=== PATIENT | female | born 1960 | race Caucasian/White ===

== ENCOUNTER 2019-09-09 11:11 | Inpatient (IN) | payer OTHER ==
[~2019-09-09 11:11] MED LIST: Rocuronium Bromide 10 MG/ML (10ML VIAL) ONE; Succinylcholine Chloride 20 MG/ML 10 ml SYRINGE FS ONE
[2019-09-09] MEDS ORDERED: Diltiazem 125 MG/25 ML ONE (11:33)
[2019-09-09 11:55] LABS: #Basophils 0.1 thou/uL (0.0-0.2); #Eosinphils 0.1 thou/uL (0.0-0.7); #Lymphocytes 3.3 thou/uL (1.20-3.40); #Monocytes 0.9 thou/uL (0.11-0.59); #Neutrophils 6.4 thou/uL (1.40-6.50); %Basophils 0.6 % (0.0-1.0); %Eosinophils 1.2 % (0.0-10.0); %Lymphocytes 30.5 % (21.0-51.0); %Monocytes 8.4 % (0.0-10.0); %Neutrophils 59.3 % (42.0-75.0); Hemoglobin 14.6 g/dL (12.0-16.0); Mean Corpuscular HGB CONC 33.6 g/dL (32.0-36.0); Mean Corpuscular Hemoglobin 32.6 pg (27.0-31.0); Mean Corpuscular Volume 96.8 fL (78.0-98.0); Mean Platelet Volume 7.5 fL (7.4-10.4); Platelet Count 283 thou/uL (130-400); RBC Distribution Width 13.6 % (11.5-14.5); Red Blood Cell (RBC) Count 4.49 mill/uL (4.20-5.40); White Blood Cell (WBC) Count 10.8 thou/uL (4.8-10.8)
[2019-09-09 12:11] LABS: Acetaminophen Less than 6.0 mcg/mL (10.0-30.0); Alcohol Less than 10 mg/dL (Less than 10); Salicylate Less than 8.0 mg/dL (15.0-30.0)
[2019-09-09 12:17] LABS: ALT (SGPT) 13 U/L (8-55); AST (SGOT) 17 U/L (5-34); Alkaline Phosphatase 109 U/L (40-110); Anion Gap 12 mmol/L (10-20); BUN (Urea Nitrogen) 13 mg/dL (9.8-20.1); Bilirubin, Total 0.5 mg/dL (0.2-1.2); Calc. Creatinine Clearance 0 mL/min (70-130); Calcium 8.8 mg/dL (7.8-10.44); Carbon Dioxide 21 mmol/L (22-29); Chloride 107 mmol/L (98-107); Estimated GFR-MDRD Greater than 90; Globulin 2.9 g/dL (2.4-3.5); Glucose 113 mg/dL (70-105); Potassium 3.8 mmol/L (3.5-5.1); Protein, Total 6.9 g/dL (6.0-8.3); Sodium 136 mmol/L (136-145)
--- NOTE | 2019-09-09 12:22 | CT ---
CT BRAIN WITHOUT CONTRAST: Date: 09/09/2019 HISTORY: Altered mental status. Schizophrenia. Bipolar. COMPARISON: None. FINDINGS: No evidence of acute infarct, hemorrhage, midline shift, or abnormal extra-axial fluid collections ar e seen. The ventricular size is normal and the basilar cisterns are patent. There is suggestion of an old lacunar infarction in the right side of the heidy. The bony calvarium is intact. The visualized p aranasal sinuses and mastoid air cells are well aerated. IMPRESSION: No CT evidence of acute intracranial process. POS: [facility]
--- NOTE | 2019-09-09 13:00 | RAD ---
PORTABLE CHEST 1 VIEW: DATE: 09/09/2019. TIME: 12:16 PM. HISTORY: Altered mental status. FINDINGS/IMPRESSION: The heart size is borderline. The aorta is tortuous with mild prominence of the pulmonary vascularit y. No lobar consolidation, pneumothoraces, or large effusions are seen. There are postop changes an d metallic hardware in the left proximal humerus. POS: [facility]
[2019-09-09] MEDS ORDERED: Lorazepam 2 MG/ML VIAL ONE (13:12)
[2019-09-09] MEDS ORDERED: Ketamine 50 MG/ML (10ML VIAL) ONE (13:27)
[2019-09-09] MEDS ORDERED: Rocuronium Bromide 10 MG/ML (10ML VIAL) ONE (13:27)
[2019-09-09 14:32] LABS: Actual Bicarbonate (HCO3a) 17.7 mEq/L (22-28); Analyzer IN Cardio ER; Base Excess (BEa) -7.9 mEq/L (-2.0 to +3.0); CO2 Tension 36.8 mmHg (35.0-45.0); Calcium, Ionized (arterial) 1.18 mmol/L (1.12-1.30); Carboxyhemoglobin (COHb) 5.6 gm% (0.0-3.0); Hemoglobin (Hb) 14.3 g/dL (12.0-16.0); O2 Tension (PaO2), arterial 135.7 mmHg (80.0-100.0); Potassium - ABG Lab 3.82 mmol/L (3.70-5.30)
[2019-09-09 14:38] LABS: Puncture Site RRA
[2019-09-09] MEDS ORDERED: Enoxaparin Sodium 80 MG/0.8 ML SYRINGE ONE (15:01)
[2019-09-09] MEDS ORDERED: Magnesium 2 GM/50 ML BAG (IN WATER) ONE (15:01)
[2019-09-09] MEDS ORDERED: methylPREDNISolone Sod Succ/PF 125 MG/2 ML VIAL ONE (15:01)
[2019-09-09] MEDS ORDERED: Bacteriostatic Water 30 ML VIAL FS PRN (15:07)
[2019-09-09] MEDS ORDERED: Bisacodyl 5 MG TAB PO PRN (15:47)
[2019-09-09] MEDS ORDERED: Ondansetron PF 4 MG/2 ML Vial IVP PRN (15:47)
[2019-09-09] MEDS ORDERED: Dextrose 5% in Water 1,000 ML IV PRN (15:49)
[2019-09-09] MEDS ORDERED: Dextrose 50% Abboject 50 ML SYRINGE SLOW IVP PRN (15:49)
[2019-09-09] MEDS ORDERED: HumaLOG 300 UNITS/3 ML VIAL SC PRN (15:49)
[2019-09-09 15:59] LABS: Troponin I 0.028 ng/mL (< 0.028)
[2019-09-09] MEDS ORDERED: methylPREDNISolone Sod Succ 40 MG VIAL IVP SCH (18:00)
--- NOTE | 2019-09-09 18:00 | HP ---
PRIMARY CARE PROVIDER: Anna Reyes. CHIEF COMPLAINT: Altered mental status. HISTORY OF PRESENT ILLNESS: Ms. Hall is a pleasant 58-year-old lady who was seen at [facility] on September 09, 2019. She was hospitalized at this facility from April 27, 2019 to May 01, 2019, for chest pain, proximal humeral fracture and olecranon fracture on the left side. EMS was called by the patient's for altered mental status today. He could not provide any history and did not provide the patient's name. Initially, it was unclear who she was. She has subsequently regained consciousness and was able to tell her name. She was initially worked up as a possible stroke. While in the emergency room, she started having respiratory difficulty and became hypoxic. She was started on BiPAP. She was also found to have atrial flutter with rapid ventricular response. She was started on Cardizem drip as well. The patient currently denies any chest pain. She reports feeling short of breath with exertion. She reports feeling hungry and thirsty. She denies any abdominal pain. She denies any recent travel. The patient also reports weight loss of several pounds over the last few months, attributes it to decreased appetite. REVIEW OF SYSTEMS: All systems were reviewed and found to be negative except for the pertinent positives mentioned above. PAST MEDICAL HISTORY: Dyslipidemia, hypertension, diabetes mellitus type 2, coronary artery disease. PAST SURGICAL HISTORY: Multiple breast surgeries, sinus surgery, cholecystectomy, appendectomy, hysterectomy, stent placement in lower extremity and open reduction and internal fixation of left olecranon fracture and left proximal humeral fracture. PSYCHIATRIC HISTORY: Bipolar disorder and schizophrenia. She also has a history of suicide attempts. SOCIAL HISTORY: She smokes one pack of cigarettes a day. She denies alcohol use or recreational drug use. ALLERGIES: GEODON, TORADOL, AND TRAMADOL. CURRENT MEDICATIONS: These need to be clarified, but appeared to include 1. Tylenol No.3. 2. ProAir. 3. Amitriptyline. 4. Aspirin. 5. Atorvastatin. 6. Clonazepam. 7. Benadryl. 8. Trulicity. 9. NovoLog. 10. Isosorbide. 11. Protonix. 12. Brilinta. 13. Topamax. 14. Trazodone. FAMILY HISTORY: The patient reports heart disease in her mother. PHYSICAL EXAMINATION: GENERAL: On examination, Ms. Hall is awake and alert, not in acute distress, fidgety. VITAL SIGNS: Blood pressure is 103/74, pulse 109, respiratory rate 32. She is afebrile. Her oximeter readings are reportedly falsely low. EYES: No scleral icterus, no conjunctival pallor. ENT: Moist mucosal membranes. No oropharyngeal erythema or exudates. NECK: Supple, nontender, trachea is midline. RESPIRATORY: Accessory muscles of breathing are not active. Chest wall movements are symmetric bilaterally. Lung examination reveals diffuse expiratory wheeze. CARDIOVASCULAR: S1 and S2 are heard, regular and tachycardic. Peripheral pulses palpable. ABDOMEN: Soft, nontender, bowel sounds are heard. NEUROLOGIC: Cranial nerves 2 through 12 are intact, deep tendon reflexes 2+. MUSCULOSKELETAL: Power is 5/5 in all 4 extremities. SKIN: No rashes. LYMPHATIC: No cervical lymphadenopathy. PSYCHIATRIC: The patient is fidgety, appears anxious, oriented to person and place, not to time. LABORATORY DATA: Ms. Hall's labs and investigations were reviewed. I reviewed her electrocardiogram, which shows atrial flutter with variable AV block, no ST changes to suggest an acute coronary syndrome. I also reviewed her chest x-ray, which does not show any pulmonary infiltrates. Noncontrast CT scan of the brain did not show any acute intracranial process. She has an unremarkable CBC, unremarkable comprehensive metabolic profile, normal troponin-I x2, mildly elevated BNP of 336, normal salicylate level, normal acetaminophen level, normal plasma alcohol level, and arterial blood gases showing pH 7.30, pCO2 of 36.8, and PO2 of 135.7. ASSESSMENT AND PLAN: Ms. Hall is a pleasant 58-year-old lady who was seen at [facility] on September 09, 2019. Her problem list includes: 1. Acute metabolic encephalopathy: She initially presented with acute metabolic encephalopathy. Etiology unclear, although it could have been secondary to hypoxia. She will be admitted to the hospital. She has improved since coming to the emergency room. Further management depending on how she does. 2. Chronic obstructive pulmonary disease exacerbation: The patient is presenting with chronic obstructive pulmonary disease exacerbation. She has been started on steroids and DuoNeb. She has also received levofloxacin in the emergency room, which I will continue for now. She will be admitted to the [facility] for further management. 3. Atrial flutter: She has been started on a Cardizem drip, which I will continue. I will also consult Cardiology Service for opinion and help with management. 4. Hypertension: We will resume her home medications once clarified, monitor vital signs and titrate antihypertensives as needed. 5. Diabetes mellitus type 2: Start Accu-Chek and insulin sliding scale, clarify home medications and resume home medications. 6. Dyslipidemia: Resume home medications once clarified. 7. COVID-19, to be ruled out. Many thanks for allowing me to participate in your patient's care. Please feel free to contact me with any questions or concerns. LEVEL OF RISK: High. LEVEL OF COMPLEXITY: High. Job ID: [id number]
[2019-09-09 20:38] LABS: Troponin I 0.026 ng/mL (< 0.028)
[2019-09-09] MEDS: methylPREDNISolone Sod Succ 40 MG VIAL IVP SCH (21:16)
[2019-09-09] MEDS: Sodium Chloride 0.9% 1,000 ML IV SCH (21:16)
[2019-09-09] MEDS: Nicotine 21 MG PATCH TD SCH (21:16)
--- NOTE | 2019-09-09 21:35 | CON ---
DATE OF CONSULTATION: 09/09/2019 CONSULTING PHYSICIAN: Noman Mcelroy MD from the Hospitalist Group. REASON FOR CONSULTATION: Rule out COVID pneumonia, hypoxic respiratory failure. HISTORY OF PRESENT ILLNESS: The patient is a 58-year-old female, who presents to the ER with a history of increasing shortness of breath, chest congestion, and altered mental status. I am told that she is a schizophrenic, who has been off her medications for quite some time. She denies any exposure to people with COVID, but she has been put on rule-out status by the emergency room physician. She was noted in the ER to be hypoxic, for that seems to be due to monitoring air with a pulse oximeter, as her PO2 is actually pretty good on the ABG. She states that she does smoke about a pack per day and thinks that she probably has COPD. PAST MEDICAL HISTORY: 1. Hypertension. 2. Hyperlipidemia. 3. Schizophrenia. 4. Bipolar disorder. 5. Type 2 diabetes mellitus. 6. Coronary artery disease. 7. Multiple suicide attempts. PAST SURGICAL HISTORY: 1. Breast surgical. 2. Sinus surgery. 3. Cholecystectomy. 4. Appendectomy. 5. Hysterectomy. 6. Right iliac stenting. SOCIAL HISTORY: Smokes less than a pack per day. Does not consume alcohol or use illicit drugs. ALLERGIES: CHOCOLATE, CORN SYRUP, GEODON, TORADOL, AND TRAMADOL. MEDICATIONS: Prior to admission not currently available, but the last time she was in the hospital, she was supposed to be on; 1. Amitriptyline. 2. Aspirin. 3. Atorvastatin. 4. Clonazepam. 5. Trulicity. 6. NovoLog insulin. 7. Imdur. 8. Protonix. 9. Brilinta. 10. Topamax. 11. Trazodone. REVIEW OF SYSTEMS: Difficult to obtain because the patient is very manic at this time. PHYSICAL EXAMINATION: VITAL SIGNS: Temperature 97, pulse 140, respirations generally in the 20s, O2 saturation on her ABG is 98%. GENERAL: She is a disheveled appearing female, who is sitting up in chair. She is in no distress. HEENT: Pupils reactive. Sclerae anicteric. Oropharynx clear. CHEST: Faint wheezing bilaterally. CARDIOVASCULAR: S1 and S2. Irregularly irregular without murmur. ABDOMEN: Soft and nontender. EXTREMITIES: No clubbing, cyanosis, or edema. LABORATORY DATA: ABG; pH of 7.30, pCO2 of 36, and pO2 of 135, that was on 60% oxygen. White blood cell count 10.8, hematocrit 43, and platelet count 283. Sodium 136, potassium 3.8, chloride 107, CO2 of 21, BUN 13, creatinine 0.6, and glucose 113. BNP is 336. Chest x-ray shows some vascular congestion. Tox screen was negative. ASSESSMENT: 1. Atrial fibrillation with rapid ventricular response. 2. Acute hypoxic respiratory failure. 3. Schizophrenia. 4. Probable underlying chronic obstructive pulmonary disease. PLAN: 1. The patient currently does not need BiPAP, she seems more than adequate on nasal cannula. 2. She needs to have her rate control with her atrial fibrillation. 3. She will remain in respiratory isolation until her COVID test is back. 4. We would withhold any type of antibiotic therapy for the current time. 5. Misty for rate control. Job ID: [id number]
[2019-09-09] MEDS: Diltiazem 125 MG in Sodium Chloride 0.9% 100 ML IVPB SCH (23:29)
[2019-09-10] MEDS ORDERED: Lorazepam 2 MG/ML VIAL SLOW IVP SCH (03:15)
[2019-09-10] MEDS: Enoxaparin Sodium 60 MG/0.6 ML SYRINGE SC SCH ×2 (03:20→14:47)
[2019-09-10] MEDS: methylPREDNISolone Sod Succ 40 MG VIAL IVP SCH ×4 (03:21→20:35)
[2019-09-10 03:53] LABS: #Lymphocytes 0.8 thou/uL (1.20-3.40); #Monocytes 0.2 thou/uL (0.11-0.59); #Neutrophils 7.1 thou/uL (1.40-6.50); %Basophils 0.3 % (0.0-1.0); %Eosinophils 0.1 % (0.0-10.0); %Lymphocytes 10.3 % (21.0-51.0); %Monocytes 2.1 % (0.0-10.0); %Neutrophils 87.2 % (42.0-75.0); Hemoglobin 14.1 g/dL (12.0-16.0); Mean Corpuscular HGB CONC 32.7 g/dL (32.0-36.0); Mean Corpuscular Hemoglobin 31.7 pg (27.0-31.0); Mean Corpuscular Volume 96.8 fL (78.0-98.0); Mean Platelet Volume 8.5 fL (7.4-10.4); Platelet Count 288 thou/uL (130-400); Red Blood Cell (RBC) Count 4.46 mill/uL (4.20-5.40); White Blood Cell (WBC) Count 8.1 thou/uL (4.8-10.8)
[2019-09-10 04:12] LABS: Anion Gap 12 mmol/L (10-20); BUN (Urea Nitrogen) 9 mg/dL (9.8-20.1); Calc. Creatinine Clearance 98 mL/min (70-130); Calcium 8.4 mg/dL (7.8-10.44); Carbon Dioxide 18 mmol/L (22-29); Chloride 109 mmol/L (98-107); Estimated GFR-MDRD Greater than 90; Glucose 202 mg/dL (70-105); Potassium 4.1 mmol/L (3.5-5.1); Sodium 135 mmol/L (136-145)
[2019-09-10] MEDS: Diltiazem 125 MG in Sodium Chloride 0.9% 100 ML IVPB SCH ×3 (05:21→22:27)
[2019-09-10] MEDS: Insulin Regular 300 UNITS/3 ML VIAL SC PRN ×4 (06:16→20:45)
--- NOTE | 2019-09-10 08:40 | PRG ---
DATE OF SERVICE: 09/10/2019 SUBJECTIVE: The patient is confused. Really does not verbalize that much, but does not appear to be in any distress. OBJECTIVE: VITAL SIGNS: Temperature 96.4, pulse 94, blood pressure 181/101. HEENT: Unremarkable. NECK: No adenopathy or JVD. LUNGS: Faint wheezing. CARDIAC: S1, S2. Regular. ABDOMEN: Soft. EXTREMITIES: No edema. LABORATORY DATA: Sodium 135, potassium 4.1, chloride 109, CO2 of 18, BUN 9, creatinine 0.6, glucose 205. White blood cell count 8.1, hematocrit 43.1, and platelet count 288. ASSESSMENT: 1. Chronic obstructive pulmonary disease with exacerbation. 2. Rule out COVID-19 infection. 3. Schizophrenia, off medication. 4. Atrial fibrillation with rapid ventricular response. PLAN: 1. She is on Cardizem drip with good rate control of her atrial fibrillation. 2. Await result of COVID-19 test. If that comes back negative, then she can be moved to Telemetry. 3. We would consider Cardiology input for the atrial fibrillation. 4. Continue nebulization treatments, low-dose steroids. Job ID: [id number]
[2019-09-10] MEDS: Albuterol 200 PUFF (6.7GM INHALER) INH SCH ×3 (09:18→18:09)
[2019-09-10] MEDS: HYDROcodone/Acetaminophen 5/325 mg Tablet PO PRN ×3 (11:51→22:26)
[2019-09-10] MEDS: Sodium Chloride 0.9% 1,000 ML IV SCH ×2 (11:53→13:24)
--- NOTE | 2019-09-10 13:23 | CON ---
DATE OF CONSULTATION: 09/10/2019 REASON FOR CONSULTATION: Atrial flutter/atrial fibrillation. PRIMARY CANDY PULLER: Dr. Damian Morton. HISTORY OF PRESENT ILLNESS: Ms. Hall is a very pleasant 58-year-old white female, who comes to the hospital for altered mentation. She was altered today. called EMS. She was brought in. Subsequently, she woke back up, was able to give some history. She has been short of breath and EKG showed atrial fibrillation/atrial flutter, so Cardiology is being consulted for this. She does not have a history of atrial fibrillation or atrial flutter. She has been seen for coronary artery disease, which she has non-revascularizable disease in the left circumflex, and she had PVD with iliac disease that was stented successfully. PAST MEDICAL HISTORY: 1. Hyperlipidemia. 2. Hypertension. 3. Type 2 diabetes. 4. Coronary artery disease. 5. Bipolar disorder. 6. Schizophrenia. 7. Multiple suicide attempts in the past. SURGICAL HISTORY: 1. Breast surgeries. 2. Sinus surgery. 3. Cholecystectomy. 4. Appendectomy. 5. Hysterectomy. 6. Right iliac stenting. SOCIAL HISTORY: Smokes a pack a day. No alcohol or drug use. ALLERGIES: 1. CHOCOLATE FLAVOR. 2. CORN. 3. GEODON. 4. TORADOL. 5. TRAMADOL. OUTPATIENT MEDICATIONS: 1. Tylenol with Codeine. 2. ProAir. 3. Amitriptyline. 4. Aspirin 81 a day. 5. Atorvastatin. 6. Clonazepam. 7. Benadryl. 8. Trulicity. 9. NovoLog 70/30. 10. Imdur 30 a day. 11. Protonix. 12. Brilinta 90 b.i.d. 13. Topamax. 14. Trazodone. REVIEW OF SYSTEMS: A 12-point review of systems was done and was all negative unless stated in the history of present illness. PHYSICAL EXAMINATION: VITAL SIGNS: Temperature 98.8, pulse 96, respiratory rate 18, saturating 100% on room air, and blood pressure 156/80. GENERAL: Awake and alert. HEENT: Normocephalic and atraumatic. NECK: Supple. LUNGS: Clear. CARDIOVASCULAR: S1 and S2. Irregularly irregular, heart rate 80s to 110s. ABDOMEN: Soft. EXTREMITIES: No edema. SKIN: Warm and dry. LABORATORY DATA: Laboratory work was reviewed. White count of 10, hemoglobin of 14, hematocrit 43, and platelet count of 283. ABG was reviewed. Chemistries were reviewed. Sodium was 135, potassium was 4.1, chloride of 109, carbon dioxide of 18, anion gap of 12, BUN of 9, creatinine 0.65, GFR greater than 90, glucose of 211, calcium of 8.4. Troponin was negative x3. BNP was 336. Toxicology was all negative. CT of the brain was unremarkable. EKG was reviewed. ASSESSMENT: 1. Atrial flutter/atrial fibrillation. 2. Altered mentation, improved. 3. History of schizophrenia, bipolar disorder, off all medications for some time. 4. Coronary artery disease. No acute coronary syndrome. 5. Peripheral vascular disease. PLAN: 1. We will rate control for now. 2. Full anticoagulation with subcu Lovenox. 3. Once her COVID-19 comes back, if it is negative, we will call Electrophysiology to arrange for possible flutter ablation. 4. She will most likely need long-term anticoagulation as well for stroke prophylaxis. Thank you for letting us participate in the care of your patient. 45 minutes of critical care time. Job ID: [id number]
[2019-09-10] MEDS ORDERED: ALPRAZolam 0.25 MG TAB PO SCH (18:30)
--- NOTE | 2019-09-10 20:02 | PDOC.EVN ---
Event Note - Event Note Event Note: Chart reviewed, pt was not seen to conserve PPE. COVID 19 test pending. 1. A. flutter: cardizem drip, therapeutic Lovenox 2. Episodes of agitation. 3. COPD exacerbation. 4. COVID test pending.
[2019-09-10] MEDS: Amitriptyline HCl 100 MG TAB PO SCH (20:34)
[2019-09-10] MEDS: Nicotine 21 MG PATCH TD SCH (20:35)
[2019-09-10] MEDS ORDERED: AMITRIPTYLINE HCL 100 MG PO SCH (21:00)
[2019-09-11] MEDS: Albuterol 200 PUFF (6.7GM INHALER) INH SCH ×4 (00:12→20:09)
[2019-09-11] MEDS: methylPREDNISolone Sod Succ 40 MG VIAL IVP SCH ×4 (02:12→20:13)
[2019-09-11] MEDS: Enoxaparin Sodium 60 MG/0.6 ML SYRINGE SC SCH ×2 (02:12→14:46)
[2019-09-11 03:43] LABS: #Lymphocytes 1.2 thou/uL (1.20-3.40); #Monocytes 0.8 thou/uL (0.11-0.59); #Neutrophils 12.8 thou/uL (1.40-6.50); %Basophils 0.1 % (0.0-1.0); %Eosinophils 0.1 % (0.0-10.0); %Lymphocytes 8.1 % (21.0-51.0); %Monocytes 5.3 % (0.0-10.0); %Neutrophils 86.4 % (42.0-75.0); Hemoglobin 14.3 g/dL (12.0-16.0); Mean Corpuscular Hemoglobin 31.2 pg (27.0-31.0); Mean Corpuscular Volume 97.5 fL (78.0-98.0); Mean Platelet Volume 7.9 fL (7.4-10.4); Platelet Count 248 thou/uL (130-400); Red Blood Cell (RBC) Count 4.57 mill/uL (4.20-5.40); White Blood Cell (WBC) Count 14.8 thou/uL (4.8-10.8)
[2019-09-11 04:36] LABS: Anion Gap 14 mmol/L (10-20); BUN (Urea Nitrogen) 9 mg/dL (9.8-20.1); Calc. Creatinine Clearance 92 mL/min (70-130); Calcium 8.6 mg/dL (7.8-10.44); Carbon Dioxide 18 mmol/L (22-29); Chloride 107 mmol/L (98-107); Estimated GFR-MDRD 87; Glucose 202 mg/dL (70-105); Potassium 4.7 mmol/L (3.5-5.1); Sodium 134 mmol/L (136-145)
[2019-09-11] MEDS: HYDROcodone/Acetaminophen 5/325 mg Tablet PO PRN ×2 (05:47→17:36)
[2019-09-11] MEDS: Insulin Regular 300 UNITS/3 ML VIAL SC PRN ×2 (05:49→21:07)
[2019-09-11] MEDS: Topiramate 100 MG TAB PO SCH (08:25)
[2019-09-11] MEDS: Aspirin 81 mg Enteric Coated Tablet PO SCH (08:25)
[2019-09-11] MEDS: TICAGRELOR 90 MG TABLET PO SCH (08:26)
[2019-09-11] MEDS: Atorvastatin Calcium 20 MG TAB PO SCH (08:26)
[2019-09-11] MEDS: Diltiazem 125 MG in Sodium Chloride 0.9% 100 ML IVPB SCH (08:26)
[2019-09-11] MEDS ORDERED: Aspirin 81 mg Enteric Coated Tablet PO SCH (09:00)
[2019-09-11] MEDS ORDERED: TICAGRELOR 90 MG TABLET PO SCH (09:00)
[2019-09-11] MEDS ORDERED: TOPIRAMATE PO SCH (09:00)
[2019-09-11] MEDS ORDERED: Atorvastatin Calcium 20 MG TAB PO SCH (09:00)
--- NOTE | 2019-09-11 10:15 | PRG ---
DATE OF SERVICE: 09/11/2019 SUBJECTIVE: The patient remains confused, but stable. OBJECTIVE: VITAL SIGNS: Temperature 96.5, pulse 107, blood pressure 111/86, and O2 sat 91% on 4 L on a Cardizem drip at 15 mg an hour. HEENT: Unremarkable. NECK: No JVD. CARDIAC: S1 and S2, irregularly irregular. LUNGS: Clear. ABDOMEN: Soft and nontender. EXTREMITIES: No edema. LABORATORY DATA: Today, sodium 134, potassium 4.7, chloride 107, CO2 of 18, BUN 9, creatinine 0.7, and glucose 202. White blood cell count 14.8, hematocrit 44.6, and platelet count 248. ASSESSMENT: 1. Rule out COVID-19 pneumonia. 2. Chronic obstructive pulmonary disease exacerbation. 3. Atrial fibrillation with rapid ventricular response. PLAN: 1. Await COVID-19 test - is still not back at the time of this dictation. 2. Continue rate control atrial flutter/atrial fibrillation. 3. Would suggest reinstituting her benzodiazepines if she was truly taking that at home. 4. Continue steroids and nebulization treatments. Job ID: [id number]
[2019-09-11] MEDS: ALPRAZolam 0.25 MG TAB PO PRN ×2 (11:17→20:09)
[2019-09-11] MEDS ORDERED: Melatonin 3 MG TAB PO PRN (14:16)
[2019-09-11] MEDS ORDERED: clonazePAM 0.5 MG TAB PO SCH (15:00)
--- NOTE | 2019-09-11 17:10 | PDOC.CPN ---
- Subjective Date: 09/11/19 Time: 17:08 Interval history: No new issues. Episodes of anxiety. No angina. SOB unchanged today, mentation better. - Review of Systems General: denies: fever/chills, weight/appetite/sleep changes, night sweats, fatigue Respiratory: reports: cough, congestion, shortness of breath. denies: exercise intolerance Cardiovascular: reports: palpitation. denies: chest pain, edema, paroxysmal nocturnal dyspnea, orthopnea - Objective Allergies/Adverse Reactions: Allergies Allergy/AdvReac Type Severity Reaction Status Date / Time ketorolac Allergy Verified 09/10/19 06:45 tramadol Allergy Verified 09/10/19 06:45 Unable to Assess Allergy Unverified 09/10/19 06:45 Visit Medications: Current Medications Hydrocodone Bitart/Acetaminophen ([place] 5/325) 1 tab PO Q4H PRN PRN Reason: pain Last Admin: 09/11/19 05:47 Dose: 1 tab Albuterol Sulfate (Proventil Hfa) 2 puff INH [id number] [facility] Last Admin: 09/11/19 14:58 Dose: 2 puff Alprazolam (Xanax) 0.25 mg PO BIDPRN PRN PRN Reason: Anxiety Last Admin: 09/11/19 11:17 Dose: 0.25 mg Amitriptyline HCl (Elavil) 100 mg PO HS [facility] Last Admin: 09/10/19 20:34 Dose: 100 mg Aspirin (Ecotrin) 81 mg PO DAILY [facility] Last Admin: 09/11/19 08:25 Dose: 81 mg Atorvastatin Calcium (Lipitor) 20 mg PO DAILY [facility] Last Admin: 09/11/19 08:26 Dose: 20 mg Bisacodyl (Dulcolax) 10 mg PO DAILYPRN PRN PRN Reason: Constipation Carvedilol (Coreg) 6.25 mg PO BID-WM [facility] Carvedilol (Coreg) 12.5 mg PO ONE [facility] Dextrose/Water (Dextrose 50%) 25 gm SLOW IVP PRN PRN PRN Reason: Hypoglycemia Digoxin (Lanoxin) 0.25 mg SLOW IVP NOW [facility] Digoxin (Lanoxin) 0.125 mg PO DAILY [facility] Enoxaparin Sodium (Lovenox) 60 mg SC 0300,1500 [facility] Last Admin: 09/11/19 14:46 Dose: 60 mg Glucagon (Glucagon) 1 mg IM PRN PRN PRN Reason: Hypoglycemia Levofloxacin 750 mg/ Device 150 mls @ 100 mls/hr IVPB Q24HR [facility] Last Admin: 09/11/19 14:48 Dose: 150 mls Diltiazem HCl 125 mg/ Sodium (Chloride) 125 mls @ 0 mls/hr IVPB INF PRECIOUS; Protocol Last Admin: 09/11/19 08:26 Dose: 125 mls Sodium Chloride (Normal Saline 0.9%) 1,000 mls @ 50 mls/hr IV .Q20H [facility] Last Admin: 09/10/19 13:24 Dose: 1,000 mls Dextrose/Water (D5w) 1,000 mls @ 0 mls/hr IV .Q0M PRN PRN Reason: Hypoglycemia Insulin Human Regular (Humulin R) 0 units SC .MILD SLIDING SCALE PRN PRN Reason: Mild Correctional Scale Last Admin: 09/11/19 05:49 Dose: 3 unit Lisinopril (Zestril) 10 mg PO HS PRECIOUS Melatonin (Melatonin) 3 mg PO HS PRN PRN Reason: Insomnia Methylprednisolone Sodium Succinate (Solu-Medrol) 20 mg IVP 0300,0900,1500, 2100 [facility] Last Admin: 09/11/19 14:46 Dose: 20 mg Nicotine (Nicoderm Patch) 21 mg TD Q24HR [facility] Last Admin: 09/10/19 20:35 Dose: 21 mg Pantoprazole Sodium (Protonix) 40 mg PO BID [facility] Last Admin: 09/11/19 08:25 Dose: 40 mg Sodium Chloride (Flush - Normal Saline) 10 ml IVF Q12HR [facility] Last Admin: 09/11/19 08:26 Dose: 10 ml Sodium Chloride (Flush - Normal Saline) 10 ml IVF PRN PRN PRN Reason: Saline Flush Sterile Water (Bacteriostatic Water) 1 ml FS PRN PRN PRN Reason: RECONSTITUTION Ticagrelor (Brilinta) 90 mg PO DAILY [facility] Last Admin: 09/11/19 08:26 Dose: 90 mg Topiramate (Topamax) 200 mg PO DAILY [facility] Last Admin: 09/11/19 08:25 Dose: 200 mg Vital Signs & Weight: Vital Signs Pulse Ox 09/11/19 08:00 93 L Admit Weight 146 lb 5 oz Weight 146 lb 5 oz - Physical Exam General: alert & oriented x3 Cardiac: tachycardia Lungs: decreased breath sounds Neuro: grossly intact Extremities: no edema Musculoskeletal: no pain - Labs Result Diagrams: 09/11/19 03:19 09/11/19 03:19 Troponin/CKMB Troponin I 0.026 ng/mL (< 0.028) 09/09/19 19:56 - Telemetry Supraventricular conduction: atrial flutter - Assessment/Plan Assessment/Plan: 1. Afib/Aflutter with RVR 2. COPD with acute exacerbation. 3. Bipolar disorder. 4. Anxiety 5. COVID-19 rule out still pending PLAN: - Will add BB and digoxinb for better rate control. - Continue diltiazem drip. - May need amiodarone but will try to hold as much as possible due to her COPD. - Continue to try top do rate control.
[2019-09-11] MEDS ORDERED: Carvedilol 6.25 MG TAB PO SCH (17:15)
[2019-09-11] MEDS ORDERED: Digoxin 0.5 MG/2 ML AMP SLOW IVP SCH (17:15)
[2019-09-11] MEDS ORDERED: clonazePAM 0.5 MG TAB PO PRN (19:02)
--- NOTE | 2019-09-11 19:02 | PDOC.EVN ---
Event Note - Event Note Event Note: Chart reviewed, COVID 19 PCR test is still pending. Pt was not seen for PPE conservation.. 1. A. flutter: cardizem drip, therapeutic Lovenox 2. Episodes of agitation: Trial clonazepam 3. COPD exacerbation. 4. COVID test pending.
[2019-09-11] MEDS: Amitriptyline HCl 100 MG TAB PO SCH ×2 (20:09→20:13)
[2019-09-11] MEDS: Nicotine 21 MG PATCH TD SCH (20:09)
[2019-09-11] MEDS: Lisinopril 10 MG TAB PO SCH (20:10)
[2019-09-11] MEDS ORDERED: Sodium Chloride 0.9% 500 ML IV SCH ×2 (22:15)
[2019-09-11 22:22] LABS: Actual Bicarbonate (HCO3a) 20.7 mEq/L (22-28); Base Excess (BEa) -8.4 mEq/L (-2.0 to +3.0); CO2 Tension 58.3 mmHg (35.0-45.0); Calcium, Ionized (arterial) 1.14 mmol/L (1.12-1.30); Carboxyhemoglobin (COHb) 1.2 gm% (0.0-3.0); Hemoglobin (Hb) 13.6 g/dL (12.0-16.0); O2 Tension (PaO2), arterial 94.1 mmHg (80.0-100.0)
--- NOTE | 2019-09-11 22:23 | RAD ---
EXAM: CHEST ONE VIEW HISTORY: Shortness of breath COMPARISON: 09/09/2019 FINDINGS: There has been interval increase in bilateral perihilar interstitial and alveolar opacities with grea ter increased density now present at the right lung base. There are probable small bilateral pleural effusions. Cardiac silhouette is magnified by projection but likely enlarged. Postoperative c hanges left proximal humerus are seen. Vascular calcifications are seen in the thoracic aorta. IMPRESSION: 1. Increased perihilar interstitial and alveolar opacities which may be related to pulmonary edema ve rsus infectious process. Follow-up to resolution is suggested. 2. Small bilateral pleural effusions greater on the right.
--- NOTE | 2019-09-11 22:41 | PDOC.EVN ---
Event Note - Event Note Event Note: Nurse called, patient HR 40s-70s, afib, SBP 70s-80s, lethargic, Sp02 97% on Bipap. afebrile. Got klonopin and xanax this evening. Patient declining inhalers for her COPD exacerbation. Upon exam, somnolent, able to arouse and answer questions to voice. Lungs mild exp wheezing, EKG afib, rate controlled 80s, ABG pH 7.1, CO2 58, HCO3 20, O2 94. Gave 1L NS, inhaler per RT, and repeat ABG in 3 hours, Antonio Calderon assessed patient at bedside. Hold all benzos and stop cardizem drip.
[2019-09-12 01:36] LABS: Actual Bicarbonate (HCO3a) 19.9 mEq/L (22-28); Base Excess (BEa) -6.7 mEq/L (-2.0 to +3.0); CO2 Tension 44.1 mmHg (35.0-45.0); Calcium, Ionized (arterial) 1.18 mmol/L (1.12-1.30); Carboxyhemoglobin (COHb) 1.4 gm% (0.0-3.0); Hemoglobin (Hb) 13.6 g/dL (12.0-16.0); O2 Tension (PaO2), arterial 71.2 mmHg (80.0-100.0); Potassium - ABG Lab 4.13 mmol/L (3.70-5.30); pH, Arterial 7.27 (7.35-7.45)
[2019-09-12 01:37] LABS: ALV-art Gradient 586.675 (0-20); Puncture Site RRA
[2019-09-12 01:38] LABS: Puncture Site RRA; pH, Arterial 7.17 (7.35-7.45)
[2019-09-12 01:39] LABS: ALV-art Gradient 546.025 (0-20)
[2019-09-12] MEDS: Albuterol 200 PUFF (6.7GM INHALER) INH SCH ×4 (02:15→20:52)
[2019-09-12] MEDS: methylPREDNISolone Sod Succ 40 MG VIAL IVP SCH ×4 (03:12→20:52)
[2019-09-12] MEDS: Enoxaparin Sodium 60 MG/0.6 ML SYRINGE SC SCH ×2 (03:12→15:30)
[2019-09-12 04:36] LABS: Band 2 % (5-11); Lymphocytes 3 % (21-51); MDiff Complete? YES; Mean Corpuscular HGB CONC 31.5 g/dL (32.0-36.0); Mean Corpuscular Volume 98.6 fL (78.0-98.0); Mean Platelet Volume 7.7 fL (7.4-10.4); Monocytes 15 % (0-10); Neutrophil 80 % (42-75); Platelet Count 281 thou/uL (130-400); Platelet Morphology Comment Appears Adequate; RBC Distribution Width 13.6 % (11.5-14.5); RBC Morphology Normal; Red Blood Cell (RBC) Count 4.19 mill/uL (4.20-5.40); White Blood Cell (WBC) Count 20.8 thou/uL (4.8-10.8)
[2019-09-12 04:38] LABS: Anion Gap 11 mmol/L (10-20); BUN (Urea Nitrogen) 17 mg/dL (9.8-20.1); Calc. Creatinine Clearance 93 mL/min (70-130); Calcium 8.2 mg/dL (7.8-10.44); Carbon Dioxide 20 mmol/L (22-29); Chloride 104 mmol/L (98-107); Estimated GFR-MDRD 89; Glucose 135 mg/dL (70-105); Potassium 4.2 mmol/L (3.5-5.1); Sodium 131 mmol/L (136-145)
[2019-09-12] MEDS: Sodium Chloride 0.9% 1,000 ML IV SCH (06:03)
[2019-09-12] MEDS ORDERED: Furosemide 40 MG/4 ML VIAL SLOW IVP SCH (09:15)
--- NOTE | 2019-09-12 09:33 | PRG ---
DATE OF SERVICE: 09/12/2019 SUBJECTIVE: The patient was placed on BiPAP last night because of progressive respiratory discomfort. She had a blood gas drawn showing a mixed metabolic and respiratory acidosis. Her x-ray looks 10 times worse than date of admission with development of central pulmonary infiltrates. OBJECTIVE: GENERAL: Today, she appears comfortable on the BiPAP. HEENT: Unremarkable. NECK: No adenopathy or JVD. LUNGS: Coarse breath sounds. CARDIAC: S1, S2. Irregular. Slightly tachycardic. ABDOMEN: Soft. EXTREMITIES: No edema. LABORATORY DATA: White blood cell count 10.8, hematocrit 41, and platelet count 281. PH 7.27, pCO2 of 44, pO2 of 71. Sodium 131, potassium 4.2, chloride 104, CO2 of 20, BUN 17, creatinine 0.6, and glucose 135. Her COVID test still not back after 4 days. ASSESSMENT: 1. Respiratory failure requiring mechanical ventilation. 2. Adel is that she has heart failure, although COVID-19 has not been ruled out yet. PLAN: I will go ahead and give her a big dose of diuretics. Her IV fluids will be stopped. Hopefully, we can wean her BiPAP down. Job ID: [id number]
[2019-09-12] MEDS: Digoxin 0.125 MG TAB PO SCH (09:55)
[2019-09-12] MEDS: Aspirin 81 mg Enteric Coated Tablet PO SCH (09:55)
[2019-09-12] MEDS: Topiramate 100 MG TAB PO SCH (09:55)
[2019-09-12] MEDS: Carvedilol 6.25 MG TAB PO SCH ×2 (09:57→15:31)
[2019-09-12] MEDS: TICAGRELOR 90 MG TABLET PO SCH (10:22)
[2019-09-12] MEDS: HYDROcodone/Acetaminophen 5/325 mg Tablet PO PRN (11:05)
[2019-09-12] MEDS: Amiodarone 450 MG in Dextrose 5% in Water 250 ML IVPB SCH (17:31)
--- NOTE | 2019-09-12 18:04 | EKG ---
Test Reason : STAT Blood Pressure : / mmHG Vent. Rate : 086 BPM Atrial Rate : 258 BPM P-R Int : 000 ms QRS Dur : 086 ms QT Int : 380 ms P-R-T Axes : 000 100 158 degrees QTc Int : 454 ms Undetermined rhythm grouped beats suggest wenckebach block Rightward axis Low voltage QRS Septal infarct (cited on or before 09-SEP-2019) Abnormal ECG When compared with ECG of 09-SEP-2019 11:25, (Unconfirmed) Current undetermined rhythm precludes rhythm comparison, needs review Nonspecific T wave abnormality, improved in Lateral leads Confirmed by DR. Kalie ROCHA ([id number]) on 09/12/2019 6:04:05 PM Referred By: KHARI Confirmed By:DR. Kalie ROCHA
--- NOTE | 2019-09-12 18:27 | PDOC.CPN ---
- Subjective Date: 09/12/19 Time: 18:14 Interval history: She went into respiratory distress overnight. She is now on BiPAP. Likely CHF. HR continues to bounce from the 90's when calm up to the 140's when more SOB and anxious. - Review of Systems General: denies: fever/chills, weight/appetite/sleep changes, night sweats, fatigue Respiratory: reports: shortness of breath, exercise intolerance. denies: cough , congestion Cardiovascular: reports: palpitation. denies: chest pain, edema, paroxysmal nocturnal dyspnea, orthopnea Gastrointestinal: denies: nausea, vomiting, diarrhea, constipation, abd pain, GI bleeding Musculoskeletal: denies: pain, tenderness, stiffness, swelling, arthritis/ arthralgias Neurological: denies: numbness, syncope, seizure, weakness - Objective Allergies/Adverse Reactions: Allergies Allergy/AdvReac Type Severity Reaction Status Date / Time ketorolac Allergy Verified 09/10/19 06:45 tramadol Allergy Verified 09/10/19 06:45 Unable to Assess Allergy Unverified 09/10/19 06:45 Visit Medications: Current Medications Hydrocodone Bitart/Acetaminophen ([place] 5/325) 1 tab PO Q4H PRN PRN Reason: pain Last Admin: 09/12/19 11:05 Dose: 1 tab Albuterol Sulfate (Proventil Hfa) 2 puff INH [id number] [facility] Last Admin: 09/12/19 15:30 Dose: 2 puff Aspirin (Ecotrin) 81 mg PO DAILY [facility] Last Admin: 09/12/19 09:55 Dose: 81 mg Atorvastatin Calcium (Lipitor) 20 mg PO 2100 [facility] Bisacodyl (Dulcolax) 10 mg PO DAILYPRN PRN PRN Reason: Constipation Carvedilol (Coreg) 6.25 mg PO BID-WM [facility] Last Admin: 09/12/19 15:31 Dose: 6.25 mg Dextrose/Water (Dextrose 50%) 25 gm SLOW IVP PRN PRN PRN Reason: Hypoglycemia Digoxin (Lanoxin) 0.125 mg PO DAILY [facility] Last Admin: 09/12/19 09:55 Dose: 0.125 mg Enoxaparin Sodium (Lovenox) 60 mg SC 0300,1500 [facility] Last Admin: 09/12/19 15:30 Dose: 60 mg Glucagon (Glucagon) 1 mg IM PRN PRN PRN Reason: Hypoglycemia Levofloxacin 750 mg/ Device 150 mls @ 100 mls/hr IVPB Q24HR [facility] Last Admin: 09/12/19 15:32 Dose: 150 mls Dextrose/Water (D5w) 1,000 mls @ 0 mls/hr IV .Q0M PRN PRN Reason: Hypoglycemia Amiodarone HCl 450 mg/ (Dextrose/Water) 259 mls @ 0 mls/hr IVPB INF [facility]; Protocol Last Admin: 09/12/19 17:31 Dose: 259 mls Insulin Human Regular (Humulin R) 0 units SC .MILD SLIDING SCALE PRN PRN Reason: Mild Correctional Scale Last Admin: 09/11/19 21:07 Dose: 4 unit Lisinopril (Zestril) 10 mg PO HS [facility] Last Admin: 09/11/19 20:10 Dose: 10 mg Melatonin (Melatonin) 3 mg PO HS PRN PRN Reason: Insomnia Methylprednisolone Sodium Succinate (Solu-Medrol) 20 mg IVP 0300,0900,1500, 2100 [facility] Last Admin: 09/12/19 15:30 Dose: 20 mg Nicotine (Nicoderm Patch) 21 mg TD Q24HR [facility] Last Admin: 09/11/19 20:09 Dose: 21 mg Pantoprazole Sodium (Protonix) 40 mg PO BID [facility] Last Admin: 09/12/19 09:55 Dose: 40 mg Sodium Chloride (Flush - Normal Saline) 10 ml IVF Q12HR [facility] Last Admin: 09/12/19 09:58 Dose: 10 ml Sodium Chloride (Flush - Normal Saline) 10 ml IVF PRN PRN PRN Reason: Saline Flush Sterile Water (Bacteriostatic Water) 1 ml FS PRN PRN PRN Reason: RECONSTITUTION Ticagrelor (Brilinta) 90 mg PO DAILY [facility] Last Admin: 09/12/19 10:22 Dose: 90 mg Topiramate (Topamax) 200 mg PO DAILY [facility] Last Admin: 09/12/19 09:55 Dose: 200 mg Vital Signs & Weight: Vital Signs Temp Pulse BP Pulse Ox 09/12/19 16:00 97.5 F L 09/12/19 15:31 154/110 H 09/12/19 09:57 154/110 H 09/12/19 09:55 120 H 09/12/19 08:00 97 F L 96 Admit Weight 146 lb 5 oz Weight 146 lb 5 oz - Physical Exam General: other (Moderate resp distress) Neck: supple neck Cardiac: irregularly regular, tachycardia Lungs: decreased breath sounds Neuro: grossly intact Abdomen: active bowel sounds Extremities: no edema - Labs Result Diagrams: 09/12/19 03:42 09/12/19 03:42 Troponin/CKMB Troponin I 0.026 ng/mL (< 0.028) 09/09/19 19:56 - Telemetry Supraventricular conduction: atrial fibrillation - Assessment/Plan Assessment/Plan: 1. Afib RVR 2. Aflutter 3. COPD, with exacerbation 4. Acute on chronic systolic heart failure 5. COVID-19 rule out pending. PLAN: - Continue IV diuresis - Will get BNP as her fluid status is difficult to assess. - Will start amiodarone drip for better HR control - Stop diltiazem drip.
--- NOTE | 2019-09-12 19:50 | PDOC.EVN ---
Event Note - Event Note Event Note: Chart reviewed, COVID 19 PCR test result from 09/09/2019 is still pending. Pt was not seen for PPE conservation. 1. A. flutter: cardizem drip, therapeutic Lovenox 2. Episodes of agitation: Trial clonazepam 3. Respiratory distress overnight, started on BiPAP. 4. COVID test result from 09/08 pending another COVID test sent today.
[2019-09-12] MEDS: Atorvastatin Calcium 20 MG TAB PO SCH (20:51)
[2019-09-12] MEDS: Lisinopril 10 MG TAB PO SCH (20:52)
[2019-09-12] MEDS: Nicotine 21 MG PATCH TD SCH (20:52)
[2019-09-12] MEDS: Insulin Regular 300 UNITS/3 ML VIAL SC PRN (21:08)
--- NOTE | 2019-09-12 21:40 | PDOC.BPN ---
- Brief Progress Note EVENT NOTE Patient seen at beside for noted respiratory decompensation. Being treated for respiratory failure in setting of suspected COVID19. Per primary RN patient was found unresponsive with agonal respirations after taking BIPAP off. Code blue called but at my arrival patient had never lost pulses. After re- oxygenation provided and BIPAP re-inititiate patient is now more awake and answering simple questions. Decision to put patient on restrains made for her safety. Will obtain STAT ABG & repeat ABG in 3-4 hrs. Will hold off on antibation as patient has already shown improvement. Will continue to monitor patient closely. Discussed in detail with primary RN and responding team.
[2019-09-12 21:43] LABS: Actual Bicarbonate (HCO3a) 23.3 mEq/L (22-28); Base Excess (BEa) -3.8 mEq/L (-2.0 to +3.0); CO2 Tension 50.2 mmHg (35.0-45.0); Calcium, Ionized (arterial) 1.18 mmol/L (1.12-1.30); Carboxyhemoglobin (COHb) 1.4 gm% (0.0-3.0); Hemoglobin (Hb) 14.5 g/dL (12.0-16.0); O2 Tension (PaO2), arterial 95.7 mmHg (80.0-100.0); Potassium - ABG Lab 4.24 mmol/L (3.70-5.30); pH, Arterial 7.28 (7.35-7.45)
[2019-09-12 21:44] LABS: Puncture Site LRA
[2019-09-13 01:03] LABS: Base Excess (BEa) -0.3 mEq/L (-2.0 to +3.0); CO2 Tension 48.8 mmHg (35.0-45.0); Calcium, Ionized (arterial) 1.17 mmol/L (1.12-1.30); Carboxyhemoglobin (COHb) 1.4 gm% (0.0-3.0); Hemoglobin (Hb) 13.4 g/dL (12.0-16.0); O2 Tension (PaO2), arterial 94.7 mmHg (80.0-100.0); Potassium - ABG Lab 3.69 mmol/L (3.70-5.30); pH, Arterial 7.34 (7.35-7.45)
[2019-09-13 01:04] LABS: Puncture Site LBR
[2019-09-13] MEDS: Amiodarone 450 MG in Dextrose 5% in Water 250 ML IVPB SCH ×2 (02:05→16:29)
[2019-09-13] MEDS: Albuterol 200 PUFF (6.7GM INHALER) INH SCH ×4 (02:19→19:01)
[2019-09-13 03:53] LABS: #Lymphocytes 0.8 thou/uL (1.20-3.40); #Monocytes 1.2 thou/uL (0.11-0.59); #Neutrophils 15.7 thou/uL (1.40-6.50); %Eosinophils 0.1 % (0.0-10.0); %Lymphocytes 4.3 % (21.0-51.0); %Monocytes 6.8 % (0.0-10.0); %Neutrophils 88.7 % (42.0-75.0); Hemoglobin 13.7 g/dL (12.0-16.0); Mean Corpuscular HGB CONC 31.7 g/dL (32.0-36.0); Mean Corpuscular Hemoglobin 31.3 pg (27.0-31.0); Mean Corpuscular Volume 98.7 fL (78.0-98.0); Mean Platelet Volume 7.7 fL (7.4-10.4); Platelet Count 237 thou/uL (130-400); RBC Distribution Width 13.8 % (11.5-14.5); Red Blood Cell (RBC) Count 4.38 mill/uL (4.20-5.40); White Blood Cell (WBC) Count 17.7 thou/uL (4.8-10.8)
[2019-09-13] MEDS: methylPREDNISolone Sod Succ 40 MG VIAL IVP SCH (04:01)
[2019-09-13] MEDS: Enoxaparin Sodium 60 MG/0.6 ML SYRINGE SC SCH ×2 (04:01→14:22)
[2019-09-13 04:14] LABS: Anion Gap 11 mmol/L (10-20); BUN (Urea Nitrogen) 17 mg/dL (9.8-20.1); Calc. Creatinine Clearance 99 mL/min (70-130); Calcium 8.6 mg/dL (7.8-10.44); Carbon Dioxide 26 mmol/L (22-29); Chloride 104 mmol/L (98-107); Estimated GFR-MDRD Greater than 90; Glucose 170 mg/dL (70-105); Potassium 3.9 mmol/L (3.5-5.1); Sodium 137 mmol/L (136-145)
[2019-09-13] MEDS: Furosemide 40 MG/4 ML VIAL SLOW IVP SCH ×2 (06:13→14:22)
[2019-09-13] MEDS ORDERED: Ventilator Sedation Protocol 1 EACH FS SCH (09:35)
[2019-09-13] MEDS ORDERED: Electrolyte Replacement Protoc 1 EACH EACH FS SCH (09:35)
[2019-09-13] MEDS ORDERED: PHOS-NAK 1 PKT PACK PO PRN ×2 (09:47)
[2019-09-13] MEDS ORDERED: Magnesium 2 GM/50 ML 2 GM in Premix Bag 1 BAG IVPB PRN (09:47)
[2019-09-13] MEDS ORDERED: ELECTROLYTE REPLACEMENT PROTOCOL FS PRN (09:47)
[2019-09-13] MEDS ORDERED: Potassium Phosphate 12 MMOL in Sodium Chloride 0.9% 250 ML 250 ML IV PRN (09:47)
[2019-09-13] MEDS ORDERED: Potassium Chloride 20 MEQ TAB PO PRN (09:47)
[2019-09-13] MEDS ORDERED: Potassium Chloride 40 MEQ in Premix Bag 1 BAG IVPB PRN (09:47)
[2019-09-13] MEDS ORDERED: Potassium Phosphate 15 MMOL in Sodium Chloride 0.9% 250 ML 250 ML IV PRN (09:47)
[2019-09-13] MEDS ORDERED: Potassium Phosphate 9 MMOL in Sodium Chloride 0.9% 100 ML IVPB PRN (09:47)
[2019-09-13] MEDS ORDERED: Magnesium Oxide 400 MG TAB PO PRN ×2 (09:47)
[2019-09-13] MEDS ORDERED: Morphine 2 MG/ML SYRINGE SLOW IVP PRN (09:49)
[2019-09-13] MEDS ORDERED: DISCONTINUE PREVIOUS NARCOTIC PAIN MEDICATIONS AND BENZODIAZEPINES FS SCH (09:49)
[2019-09-13] MEDS ORDERED: Fentanyl BOLUS 250 ML IVPB PRN (09:49)
[2019-09-13] MEDS ORDERED: Propofol BOLUS 1,000 MG/100 ML VIAL IV PRN (09:49)
--- NOTE | 2019-09-13 10:06 | PRG ---
DATE OF SERVICE: 09/13/2019 SUBJECTIVE: The patient has ruled out for COVID, finally. Discussed with Dr. Morton. All parties feel the patient should be intubated because we think we are dealing with heart failure, and she needs cardioversion. OBJECTIVE: VITAL SIGNS: Temperature is 98.6, pulse 116, blood pressure 133/100. HEENT: Unremarkable. NECK: No JVD. LUNGS: Some inspiratory crackles. CARDIAC: S1 and S2, irregularly irregular. ABDOMEN: Soft. EXTREMITIES: No edema. LABORATORY DATA: Sodium , potassium 3.9, chloride 104, CO2 of 26, BUN 17, creatinine 0.6, glucose 170. White blood count 17.7, hematocrit 43.2, and platelet count 237. ABG; pH of 7.34, pCO2 of 48, PO2 of 94. She is currently on BiPAP. X-ray continues to show bilateral infiltrates. ASSESSMENT: 1. Congestive heart failure. 2. Ruled out for COVID-19. 3. Acute respiratory failure, requiring BiPAP. 4. Atrial flutter/fibrillation. PLAN: We will go ahead and intubate the patient, sedate her. She will be transferred down to the ICU. She will undergo cardioversion. We will diurese the patient. Prognosis is poor. Job ID: [id number]
[2019-09-13] MEDS ORDERED: Propofol 1,000 MG/100 ML VIAL IV ONE (10:48)
[2019-09-13] MEDS: Lorazepam 2 MG/ML VIAL SLOW IVP PRN ×2 (11:29→12:05)
[2019-09-13] MEDS: fentaNYL Citrate/PF 2,000 MCG in Sodium Chloride 0.9% 60 ML IV SCH (11:55)
[2019-09-13 11:59] LABS: Actual Bicarbonate (HCO3a) 28.4 mEq/L (22-28); Base Excess (BEa) 1.4 mEq/L (-2.0 to +3.0); CO2 Tension 54.4 mmHg (35.0-45.0); Calcium, Ionized (arterial) 1.16 mmol/L (1.12-1.30); Carboxyhemoglobin (COHb) 1.3 gm% (0.0-3.0); Hemoglobin (Hb) 14.8 g/dL (12.0-16.0); O2 Tension (PaO2), arterial 94.2 mmHg (80.0-100.0); Potassium - ABG Lab 3.53 mmol/L (3.70-5.30); pH, Arterial 7.34 (7.35-7.45)
[2019-09-13 12:08] LABS: Puncture Site RBRACH
--- NOTE | 2019-09-13 12:18 | PDOC.CPN ---
- Subjective Date: 09/13/19 Time: 12:16 Interval history: She had a code blue last night due to hypoxia, she did not loose her pulse but was unresponsive and hypoxic, Now on BiPAP but slowly getting worse. - Review of Systems ROS unobtainable: due to mental status - Objective Allergies/Adverse Reactions: Allergies Allergy/AdvReac Type Severity Reaction Status Date / Time ketorolac Allergy Verified 09/10/19 06:45 tramadol Allergy Verified 09/10/19 06:45 Unable to Assess Allergy Unverified 09/10/19 06:45 Visit Medications: Current Medications Albuterol Sulfate (Proventil Hfa) 2 puff INH [id number] [facility] Last Admin: 09/13/19 11:20 Dose: 2 puff Aspirin (Ecotrin) 81 mg PO DAILY [facility] Last Admin: 09/12/19 09:55 Dose: 81 mg Atorvastatin Calcium (Lipitor) 20 mg PO 2100 [facility] Last Admin: 09/12/19 20:51 Dose: 20 mg Bisacodyl (Dulcolax) 10 mg PO DAILYPRN PRN PRN Reason: Constipation Carvedilol (Coreg) 6.25 mg PO BID-WM [facility] Last Admin: 09/12/19 15:31 Dose: 6.25 mg Dextrose/Water (Dextrose 50%) 25 gm SLOW IVP PRN PRN PRN Reason: Hypoglycemia Digoxin (Lanoxin) 0.125 mg PO DAILY [facility] Last Admin: 09/12/19 09:55 Dose: 0.125 mg Enoxaparin Sodium (Lovenox) 60 mg SC 0300,1500 [facility] Last Admin: 09/13/19 04:01 Dose: 60 mg Furosemide (Lasix) 40 mg SLOW IVP 0600,1400 [facility] Last Admin: 09/13/19 06:13 Dose: 40 mg Glucagon (Glucagon) 1 mg IM PRN PRN PRN Reason: Hypoglycemia Levofloxacin 750 mg/ Device 150 mls @ 100 mls/hr IVPB Q24HR [facility] Last Admin: 09/12/19 15:32 Dose: 150 mls Dextrose/Water (D5w) 1,000 mls @ 0 mls/hr IV .Q0M PRN PRN Reason: Hypoglycemia Amiodarone HCl 450 mg/ (Dextrose/Water) 259 mls @ 0 mls/hr IVPB INF [facility]; Protocol Last Admin: 09/13/19 02:05 Dose: 259 mls Potassium Chloride 40 meq/ (Sodium Chloride) 270 mls @ 135 mls/hr IVPB ASDIR PRN PRN Reason: FOR SERUM K+ 2.5 - 3.5 Potassium Chloride 40 meq/ (Device) 100 mls @ 50 mls/hr IVPB ASDIR PRN PRN Reason: FOR SERUM K+ 2.5 - 3.5 Magnesium Sulfate 1 gm/ Sodium (Chloride) 102 mls @ 102 mls/hr IV PRN PRN PRN Reason: MAG LEVEL 1.4 - 2.0 Magnesium Sulfate 2 gm/ Device 50 mls @ 50 mls/hr IVPB ASDIR PRN PRN Reason: MAGNESIUM < 1.4 Potassium Phosphate 9 mmol/ (Sodium Chloride) 103 mls @ 25.75 mls/hr IVPB ASDIR PRN PRN Reason: Phosphate 1.0-1.8 Potassium Phosphate 12 mmol/ (Sodium Chloride) 254 mls @ 63.5 mls/hr IV ASDIR PRN PRN Reason: Serum phosphate 0.5-0.9 Potassium Phosphate 15 mmol/ (Sodium Chloride) 255 mls @ 63.75 mls/hr IV ASDIR PRN PRN Reason: Serum Phos < 0.5 Fentanyl Citrate 2,000 mcg/ (Sodium Chloride) 100 mls @ 0 mls/hr IV INF [facility]; Protocol Stop: 10/13/19 09:49 Last Admin: 09/13/19 11:55 Dose: 100 mls Fentanyl Citrate (Fentanyl Bolus) 250 mls @ 0 mls/hr IVPB PRN PRN PRN Reason: Breakthrough pain/agitation Stop: 10/13/19 09:49 Insulin Human Regular (Humulin R) 0 units SC .MILD SLIDING SCALE PRN PRN Reason: Mild Correctional Scale Last Admin: 09/12/19 21:08 Dose: 3 unit Lisinopril (Zestril) 10 mg PO HS [facility] Last Admin: 09/12/19 20:52 Dose: 10 mg Lorazepam (Ativan) 2 mg SLOW IVP Q1H PRN PRN Reason: Breakthrough agitation Stop: 10/13/19 09:49 Last Admin: 09/13/19 12:05 Dose: 2 mg Magnesium Oxide (Magnesium Oxide) 400 mg PO BIDPRN PRN PRN Reason: FOR SERUM MAG 1.4 - 2.0 Magnesium Oxide (Magnesium Oxide) 800 mg PO PRN PRN PRN Reason: FOR SERUM MAG < 1.4 Melatonin (Melatonin) 3 mg PO HS PRN PRN Reason: Insomnia Miscellaneous Medication (Ccu Electrolyte Replacement) 1 each FS ASDIR [facility] Miscellaneous Medication (Ventilator Sedation Protocol) 1 each FS ASDIR [facility] Miscellaneous Medication (Phos-Nak) 1 pkt PO TIDPRN PRN PRN Reason: FOR PHOS LEVEL 1.0 - 1.8 Miscellaneous Medication (Phos-Nak) 2 pkt PO TIDPRN PRN PRN Reason: FOR PHOS LEVEL 0.5 - 1.0 Morphine Sulfate (Morphine) 2 mg SLOW IVP Q1H PRN PRN Reason: BREAKTHROUGH PAIN/Agitation Stop: 10/13/19 09:49 Nicotine (Nicoderm Patch) 21 mg TD Q24HR [facility] Last Admin: 09/12/19 20:52 Dose: 21 mg Electrolyte (Replacement Protocol) 0 each FS PRN PRN PRN Reason: FOR ELECTROLYTE REPLACEMENT Discontinue Previous Narcotic Pain Medications And Benzodiazepines 1 each FS .ONE [facility] Stop: 10/13/19 09:49 Pantoprazole Sodium (Protonix) 40 mg PO BID [facility] Last Admin: 09/12/19 20:51 Dose: 40 mg Potassium Chloride (K-Dur) 40 meq PO ASDIR PRN PRN Reason: FOR SERUM K+ 2.5 - 3.5 Potassium Chloride (Klor-Con) 40 meq PER TUBE ASDIR PRN PRN Reason: FOR SERUM K+ 2.5-3.5 Propofol (Diprivan) 1,000 mg IV INF PRN; Protocol PRN Reason: TO ACHIEVE GOAL RASS Stop: 10/13/19 09:49 Propofol (Diprivan Bolus) 20 mg IV Q5MIN PRN PRN Reason: BREAKTHROUGH AGITATION Stop: 10/13/19 09:49 Sodium Chloride (Flush - Normal Saline) 10 ml IVF Q12HR [facility] Last Admin: 09/12/19 20:52 Dose: Not Given Sodium Chloride (Flush - Normal Saline) 10 ml IVF PRN PRN PRN Reason: Saline Flush Sterile Water (Bacteriostatic Water) 1 ml FS PRN PRN PRN Reason: RECONSTITUTION Ticagrelor (Brilinta) 90 mg PO DAILY [facility] Last Admin: 09/12/19 10:22 Dose: 90 mg Topiramate (Topamax) 200 mg PO DAILY [facility] Last Admin: 09/12/19 09:55 Dose: 200 mg Vital Signs & Weight: Vital Signs Temp Pulse Pulse Ox 09/13/19 09:35 137 H 09/13/19 08:00 97.0 F L 96 09/13/19 01:54 117 H 100 Admit Weight 146 lb 5 oz Weight 146 lb 5 oz - Physical Exam General: other (respiratory distress) HEENT: normocephaly Neck: supple neck Cardiac: irregularly regular Lungs: decreased breath sounds Abdomen: active bowel sounds Extremities: no edema Skin: clear - Labs Result Diagrams: 09/13/19 03:27 09/13/19 03:27 Troponin/CKMB Troponin I 0.026 ng/mL (< 0.028) 09/09/19 19:56 - Telemetry Supraventricular conduction: atrial fibrillation - Assessment/Plan Assessment/Plan: 1. Afib RVR 2. Aflutter 3. COPD, with exacerbation 4. Acute on chronic systolic heart failure 5. COVID-19 ruled out. PLAN: - Continue IV diuresis - Continue amiodarone drip - Agree with intubation for ALTAF and cardiovesion as her heart failure is likely related to rapid afib. - Will plnn on emergent ALTAF Cardioverson once intubated and airway secured. ADDENDUM: - Successful ALTAF Cardioversion, converted back to sinus at 80 bpm. - Continue full dose lovenox and amiodaron drip. - Critical Care Time Critical care time (mins): 45
[2019-09-13] MEDS ORDERED: Rocuronium Bromide 50 MG/5 ML VIAL IVP SCH (12:30)
--- NOTE | 2019-09-13 12:51 | OP ---
DATE OF PROCEDURE: 09/13/2019 PROCEDURE PERFORMED: Transesophageal echocardiogram. PREPROCEDURE DIAGNOSIS: Atrial fibrillation with rapid ventricular response. DESCRIPTION OF PROCEDURE: The patient was intubated and sedation was achieved with Ativan and Versed. After adequate sedation was achieved, a transesophageal probe was inserted into the mouth and into the esophagus. Multiplanar views were then obtained. FINDINGS: The left ventricle was normal in size. EF estimated at 40% to 50%, difficult to tell she was in rapid atrial fibrillation. Left atrium was mildly dilated. Left atrial appendage was widely open with normal velocities and no evidence of mass or thrombus. There was spontaneous echo contrast. Right ventricle was normal in size and normal systolic function. Right atrium was normal in size. Aortic valve was sclerotic, but opens well. No stenosis. There was [id number] aortic insufficiency. Mitral valve was structurally normal. There was moderate MR. Tricuspid valve structurally normal. There is mild TR. Pulmonary valve not well seen. CONCLUSIONS: 1. Systolic function at 40% to 50%. 2. Rapid atrial fibrillation during study. 3. Left atrial enlargement, it is mild. 4. Left atrial appendage is widely patent with no evidence of mass or thrombus. 5. Spontaneous echo contrast in left atrium. 6. Aortic valve sclerosis with [id number] aortic regurgitation. 7. Moderate mitral regurgitation. 8. Mild tricuspid regurgitation. Job ID: [id number]
--- NOTE | 2019-09-13 13:03 | CCLSPC ---
PROCEDURE: Cardioversion. Mrs. Hall has been intubated and airway secured. She is in heart failure, likely related to her rapid atrial fibrillation/atrial flutter. Emergent intubation and ALTAF cardioversion were planned. She has been intubated and transesophageal echo done ruling out thrombus. Once consents were implied due to the emergent nature of the procedure, Mrs. Hall was given one single synchronized shock delivered at 100 joules successfully converting her from rapid atrial fibrillation to sinus rhythm in the 80s. RECOMMENDATIONS: 1. Continue amiodarone drip. 2. Continue Lovenox full dose. 3. Wean ventilator as appropriate. 4. IV Lasix for diuresis. Job ID: [id number]
[2019-09-13] MEDS: Carvedilol 6.25 MG TAB PO SCH ×2 (14:10→20:53)
[2019-09-13] MEDS: Aspirin 81 mg Enteric Coated Tablet PO SCH (14:10)
[2019-09-13] MEDS: Digoxin 0.125 MG TAB PO SCH (14:11)
[2019-09-13] MEDS: TICAGRELOR 90 MG TABLET PO SCH (14:21)
[2019-09-13] MEDS: Topiramate 100 MG TAB PO SCH (14:21)
[2019-09-13 14:27] LABS: SARS-CoV-2 MS2 Positive; SARS-CoV-2 N Gene Negative; SARS-CoV-2 S Gene Negative; SARS-CoV-2 orf1ab Negative
[2019-09-13] MEDS ORDERED: Potassium Chloride 40 MEQ in Sodium Chloride 0.9% 250 ML 250 ML IVPB SCH (16:00)
[2019-09-13] MEDS: Insulin Regular 300 UNITS/3 ML VIAL SC PRN (16:33)
[2019-09-13] MEDS: Propofol 1,000 MG/100 ML VIAL IV PRN (16:37)
--- NOTE | 2019-09-13 19:57 | PDOC.HOSPP ---
- Subjective Encounter Date: 09/13/19 Encounter Time: 19:56 Subjective: Pt seen for followup re: acute on chronic hypercapnic respiratory failure. Intubated, could not complete ROS. - Objective Vital Signs & Weight: Vital Signs (12 hours) Temp Pulse Resp BP Pulse Ox 09/13/19 18:36 85 09/13/19 18:00 16 09/13/19 16:00 16 09/13/19 14:55 79 09/13/19 14:11 137 H 09/13/19 14:10 154/110 H 09/13/19 14:00 16 09/13/19 12:00 16 09/13/19 11:30 99 09/13/19 11:05 16 09/13/19 09:35 137 H 09/13/19 08:00 97.0 F L 96 Weight Admit Weight 146 lb 5 oz Weight 146 lb 5 oz Most Recent Monitor Data Heart Rate from ECG 92 NIBP 106/76 NIBP BP-Mean 86 Respiration from ECG 22 SpO2 91 I&O: 09/12/19 09/13/19 09/14/19 06:59 06:59 06:59 Intake Total 1500 2507 555.7 Output Total 440 3700 2880 Balance 1060 -1193 -2324.3 Result Diagrams: 09/13/19 03:27 09/13/19 03:27 Additional Labs: Accuchecks 09/13/19 09/13/19 09/12/19 16:10 06:24 21:08 POC Glucose 158 H 188 H 217 H 09/12/19 15:55 POC Glucose 165 H Labs and MARs reviewed by me EKG Reviewed by me: Yes (Tele: NSR) Hospitalist ROS - Review of Systems ROS unobtainable: due to endotracheal tube - Medication Medications: Active Medications Generic Name Dose Route Start Last Admin Trade Name Freq PRN Reason Stop Dose Admin Albuterol Sulfate 2 puff 09/10/19 07:00 09/13/19 19:01 Proventil Hfa INH 2 puff [id number] [facility] Administration Aspirin 81 mg 09/11/19 09:00 09/13/19 14:10 Ecotrin PO Not Given DAILY [facility] Atorvastatin Calcium 20 mg 09/12/19 21:00 09/12/19 20:51 Lipitor PO 20 mg 2100 [facility] Administration Carvedilol 6.25 mg 09/12/19 08:00 06/19/20 14:10 Coreg PO Not Given BID-[facility] Digoxin 0.125 mg 09/12/19 09:00 09/13/19 14:11 Lanoxin PO Not Given DAILY [facility] Enoxaparin Sodium 60 mg 09/10/19 03:00 09/13/19 14:22 Lovenox SC 60 mg 0300,1500 [facility] Administration Furosemide 40 mg 09/13/19 06:00 09/13/19 14:22 Lasix SLOW IVP 40 mg 0600,1400 [facility] Administration Levofloxacin 750 mg/ Device 150 mls @ 100 mls/hr 09/10/19 15:00 09/13/19 16: 33 IVPB 150 mls Q24HR [facility] Administration Amiodarone HCl 450 mg/ 259 mls @ 0 mls/hr 09/12/19 16:30 09/13/19 16:29 Dextrose/Water IVPB 259 mls INF [facility] Administration Protocol Per Protocol Fentanyl Citrate 2,000 mcg/ 100 mls @ 0 mls/hr 09/13/19 09:49 09/13/19 11:55 Sodium Chloride IV 10/13/19 09:49 100 mls INF [facility] Administration Protocol Per Protocol Potassium Chloride 40 meq/ 270 mls @ 67.5 mls/hr 09/13/19 16:00 09/13/19 16: 29 Sodium Chloride IVPB 09/13/19 20:00 270 mls NOW [facility] Administration Insulin Human Regular 0 units 09/09/19 15:49 09/13/19 16:33 Humulin R SC 2 unit .MILD SLIDING SCALE PRN Administration Mild Correctional Scale Lisinopril 10 mg 09/11/19 21:00 09/12/19 20:52 Zestril PO 10 mg HS [facility] Administration Lorazepam 2 mg 09/13/19 09:49 09/13/19 12:05 Ativan SLOW IVP 10/13/19 09:49 2 mg Q1H PRN Administration Breakthrough agitation Nicotine 21 mg 09/09/19 21:00 09/12/19 20:52 Nicoderm Patch TD 21 mg Q24HR [facility] Administration Pantoprazole Sodium 40 mg 09/10/19 21:00 09/13/19 14:11 Protonix PO Not Given BID [facility] Propofol 1,000 mg 09/13/19 09:49 09/13/19 16:37 Diprivan IV 10/13/19 09:49 1,000 mg INF PRN Administration TO ACHIEVE GOAL RASS Protocol Sodium Chloride 10 ml 09/10/19 21:00 09/13/19 14:11 Flush - Normal Saline IVF Not Given Q12HR [facility] Ticagrelor 90 mg 09/11/19 09:00 09/13/19 14:21 Brilinta PO 90 mg DAILY [facility] Administration Topiramate 200 mg 09/11/19 09:00 09/13/19 14:21 Topamax PO 200 mg DAILY [facility] Administration - Exam General - other findings: Intubated Eye: anicteric sclera ENT: moist mucosa Neck: supple Heart: RRR Respiratory: CTAB, no rales Gastrointestinal: soft, non-tender Extremities: no cyanosis Neurological - other findings: Unable to assess Psychiatric - other findings: Unable to assess Hosp A/P (1) Acute on chronic respiratory failure with hypercapnia Code(s): J96.22 - ACUTE AND CHRONIC RESPIRATORY FAILURE WITH HYPERCAPNIA Status: Acute (2) HTN (hypertension) Code(s): I10 - ESSENTIAL (PRIMARY) HYPERTENSION Status: Chronic (3) DM2 (diabetes mellitus, type 2) Status: Chronic (4) CAD (coronary artery disease) Code(s): I25.10 - ATHSCL HEART DISEASE OF [place] CORONARY ARTERY W/O ANG PCTRS Status: Chronic (5) Atrial fibrillation with RVR Code(s): I48.91 - UNSPECIFIED ATRIAL FIBRILLATION Status: Resolved - Plan Was intubated earlier today for resp failure. Mechanically ventilated in CCU. Continue IV levofloxacin. Cardioverted after ALTAF earlier today, remains in sinus rhythm. COVID 19 negative. Switch to moderate insulin sliding scale.
[2019-09-13] MEDS: Lisinopril 10 MG TAB PO SCH (21:27)
[2019-09-13] MEDS: Atorvastatin Calcium 20 MG TAB PO SCH (21:27)
[2019-09-13] MEDS: Nicotine 21 MG PATCH TD SCH (21:28)
[2019-09-14] MEDS: methylPREDNISolone Sod Succ 40 MG VIAL IVP SCH (01:28)
[2019-09-14] MEDS: Albuterol Sulfate 2.5 mg/3 ml Neb NEB SCH ×4 (01:37→18:25)
[2019-09-14] MEDS: Lorazepam 2 MG/ML VIAL SLOW IVP PRN (02:24)
[2019-09-14] MEDS: Enoxaparin Sodium 60 MG/0.6 ML SYRINGE SC SCH ×2 (02:24→14:01)
[2019-09-14 04:12] LABS: Anion Gap 12 mmol/L (10-20); BUN (Urea Nitrogen) 17 mg/dL (9.8-20.1); Calc. Creatinine Clearance 91 mL/min (70-130); Calcium 8.1 mg/dL (7.8-10.44); Carbon Dioxide 29 mmol/L (22-29); Chloride 102 mmol/L (98-107); Estimated GFR-MDRD 86; Glucose 123 mg/dL (70-105); Sodium 140 mmol/L (136-145)
[2019-09-14 04:37] LABS: Band 10 % (5-11); Hemoglobin 12.1 g/dL (12.0-16.0); Lymphocytes 14 % (21-51); MDiff Complete? YES; Mean Corpuscular HGB CONC 32.9 g/dL (32.0-36.0); Mean Corpuscular Hemoglobin 31.8 pg (27.0-31.0); Mean Corpuscular Volume 96.9 fL (78.0-98.0); Mean Platelet Volume 7.9 fL (7.4-10.4); Monocytes 5 % (0-10); Neutrophil 71 % (42-75); Platelet Count 217 thou/uL (130-400); Platelet Morphology Comment Appears Adequate; RBC Distribution Width 13.4 % (11.5-14.5); Red Blood Cell (RBC) Count 3.79 mill/uL (4.20-5.40)
[2019-09-14] MEDS: Furosemide 40 MG/4 ML VIAL SLOW IVP SCH ×2 (05:24→14:01)
[2019-09-14] MEDS: Potassium Chloride 40 MEQ in Sodium Chloride 0.9% 250 ML 250 ML IVPB PRN ×3 (05:24→23:58)
[2019-09-14] MEDS: fentaNYL Citrate/PF 2,000 MCG in Sodium Chloride 0.9% 60 ML IV SCH (06:33)
[2019-09-14 07:05] LABS: Actual Bicarbonate (HCO3a) 29.6 mEq/L (22-28); Base Excess (BEa) 5.4 mEq/L (-2.0 to +3.0); CO2 Tension 41.9 mmHg (35.0-45.0); Calcium, Ionized (arterial) 1.11 mmol/L (1.12-1.30); Carboxyhemoglobin (COHb) 1.9 gm% (0.0-3.0); Potassium - ABG Lab 3.14 mmol/L (3.70-5.30); pH, Arterial 7.47 (7.35-7.45)
[2019-09-14 07:27] LABS: O2 Tension (PaO2), arterial 59.7 mmHg (80.0-100.0); Puncture Site RRAD
[2019-09-14 07:28] LABS: ALV-art Gradient 244.425 (0-20)
--- NOTE | 2019-09-14 07:54 | PRG ---
DATE OF SERVICE: 09/14/2019 TIME SPENT: 35 minutes of critical care time. SUBJECTIVE: Ms. Hall is currently intubated, on mechanical ventilation. She had ALTAF and cardioversion yesterday, is now in a sinus rhythm. OBJECTIVE: VITAL SIGNS: Temperature 101.1, pulse 79, blood pressure 89/56. 24-hour intake 830, output 3400. HEENT: Unremarkable. NECK: No adenopathy or JVD. LUNGS: Inspiratory crackles. CARDIAC: S1 and S2. Regular. ABDOMEN: Soft. EXTREMITIES: No edema. LABORATORY DATA: White blood cell count 13, down from 17; hematocrit 36.7; platelet count 217. PH of 7.47, pCO2 of 42, and pO2 of 59, on SIMV rate 16, tidal volume 500, PEEP 7, pressure support 10, FiO2 of 50%. Sodium 140, potassium 3.0, chloride 102, CO2 of 29, BUN 17, creatinine 0.7, glucose 123. COVID negative x2. No x-ray today. ASSESSMENT: 1. Acute hypoxic respiratory failure, requiring mechanical ventilation. 2. Bilateral pneumonia. 3. Pulmonary edema. 4. Congestive heart failure. 5. Atrial fibrillation/flutter. 6. Hypokalemia. PLAN: 1. The patient's potassium will be replaced. Her potassium level will be rechecked this afternoon to see if further replacement is indicated. 2. I do not think she is weanable at this time. Instead, we will continue to diurese her for another day or two. 3. Her fever is of some concern, I think we should go ahead and broaden her antibiotic coverage and re-culture her. PROGNOSIS: Remains guarded. Job ID: [id number]
[2019-09-14] MEDS: Hydrocortisone Sod Succ/PF 100 mg/2 ml Vial IVP SCH ×3 (08:22→19:52)
--- NOTE | 2019-09-14 08:25 | RAD ---
SINGLE VIEW CHEST: Date: 09/14/2019 COMPARISON: 09/11/2019. HISTORY: Intubated patient with respiratory failure. FINDINGS: Single view of the chest shows a cardiomediastinal silhouette which is upper limits of normal in size with atherosclerotic calcifications in the aorta. An endotracheal tube is seen in good position with its tip approximately 2.0 cm from the deandra. Multifocal opacities are seen scattered throughout the lungs. There may be a small right pleural effusion. A NG tube courses off the inferior aspect of the film. IMPRESSION: 1. Appropriate position of lines and tubes. 2. Multifocal infiltrates with right pleural effusion. POS: EAA
[2019-09-14] MEDS: Carvedilol 6.25 MG TAB PO SCH (08:26)
[2019-09-14] MEDS: Vancomycin 1 GM in Premix Bag 1 BAG IVPB SCH ×2 (08:54→19:52)
[2019-09-14] MEDS: Amiodarone 450 MG in Dextrose 5% in Water 250 ML IVPB SCH ×2 (08:56→23:02)
[2019-09-14] MEDS: Digoxin 0.125 MG TAB PO SCH (09:48)
[2019-09-14] MEDS: Pantoprazole 40 MG GRANULES PACKET PO SCH ×2 (09:48→19:52)
[2019-09-14] MEDS: Aspirin 81 mg Enteric Coated Tablet PO SCH (09:48)
[2019-09-14] MEDS: Topiramate 100 MG TAB PO SCH (09:49)
[2019-09-14] MEDS: TICAGRELOR 90 MG TABLET PO SCH (09:49)
[2019-09-14] MEDS: Insulin Regular 300 UNITS/3 ML VIAL SC PRN (10:00)
--- NOTE | 2019-09-14 12:30 | EKG ---
Test Reason : LETHARGY Blood Pressure : / mmHG Vent. Rate : 140 BPM Atrial Rate : 340 BPM P-R Int : 000 ms QRS Dur : 094 ms QT Int : 264 ms P-R-T Axes : 086 074 173 degrees QTc Int : 403 ms Atrial flutter with variable A-V block Low voltage QRS Cannot rule out Anterior infarct , age undetermined Abnormal ECG Confirmed by PAVEL JACKSON DO ([id number]), film editor YOU FLORES ([id number]) on 09/14/2019 12:29:34 PM Referred By: BOOM Confirmed By:PAVEL JACKSON DO
[2019-09-14 12:50] LABS: Potassium 3.3 mmol/L (3.5-5.1)
--- NOTE | 2019-09-14 13:43 | PRG ---
DATE OF SERVICE: 09/14/2019 SUBJECTIVE: Ms. Hall is intubated, mildly sedated. OBJECTIVE: VITAL SIGNS: Her blood pressure has been running systolic, pulse is in the 90s, it is sinus. LUNGS: Clear. CARDIAC: Normal S1, normal S2. ABDOMEN: Soft, nontender. ASSESSMENT: 1. Status post cardioversion, maintaining sinus rhythm. 2. Relatively low blood pressure. 3. Mildly depressed left ventricular function. PLAN: We will hold Coreg today in view of the low blood pressure. No other changes. Job ID: [id number]
[2019-09-14] MEDS: Propofol 1,000 MG/100 ML VIAL IV PRN (14:58)
[2019-09-14] MEDS: HumaLOG 300 UNITS/3 ML VIAL SC PRN (17:31)
--- NOTE | 2019-09-14 18:35 | PDOC.HOSPP ---
- Subjective Encounter Date: 09/14/19 Encounter Time: 12:30 Subjective: CC: f/u respiratory failure The patient is intubated. SHe is following commands. She states that she wants her wrist restraints off. She reports having pain all over. She did have low BP of 76 systolic this afternoon, propofol was turned off with improvement in BP to 96 systolic Patient denies dizziness, lightheadedness, chest pain or cough - Objective Vital Signs & Weight: Vital Signs (12 hours) Temp Pulse Resp BP Pulse Ox 09/14/19 18:00 16 09/14/19 16:00 99.1 F 16 09/14/19 15:02 72 09/14/19 14:00 16 09/14/19 13:15 74 16 100 09/14/19 12:00 16 09/14/19 10:26 80 09/14/19 10:00 16 09/14/19 09:48 82 09/14/19 08:26 75/45 L 09/14/19 08:00 16 97 09/14/19 07:30 82 16 93 L Weight Admit Weight 146 lb 5 oz Weight 146 lb 5 oz Most Recent Monitor Data Heart Rate from ECG 72 NIBP 90/53 NIBP BP-Mean 65 Respiration from ECG 21 SpO2 100 I&O: 09/13/19 09/14/19 09/15/19 06:59 06:59 06:59 Intake Total 2507 830.1 383 Output Total 3700 3400 2400 [facility] -1193 -2569.9 -2017 Result Diagrams: 09/14/19 03:30 09/14/19 12:30 Additional Labs: Accuchecks 09/14/19 09/14/19 09/13/19 17:34 09:56 21:45 POC Glucose 180 H 193 H 125 H 09/13/19 16:10 POC Glucose 158 H Hospitalist ROS - Review of Systems Constitutional: denies: fever, chills - Medication Medications: Active Medications Generic Name Dose Route Start Last Admin Trade Name Freq PRN Reason Stop Dose Admin Albuterol Sulfate 2.5 mg 09/14/19 01:00 09/14/19 13:15 Ventolin NEB 2.5 mg [id number] PRECIOUS Administration Aspirin 81 mg 09/11/19 09:00 09/14/19 09:48 Ecotrin PO 81 mg DAILY PRECIOUS Administration Atorvastatin Calcium 20 mg 09/12/19 21:00 09/13/19 21:27 Lipitor PO 20 mg 2100 PRECIOUS Administration Digoxin 0.125 mg 09/12/19 09:00 09/14/19 09:48 Lanoxin PO 0.125 mg DAILY PRECIOUS Administration Enoxaparin Sodium 60 mg 09/10/19 03:00 09/14/19 14:01 Lovenox SC 60 mg 0300,1500 PRECIOUS Administration Furosemide 40 mg 09/13/19 06:00 09/14/19 14:01 Lasix SLOW IVP 40 mg 0600,1400 PRECIOUS Administration Hydrocortisone Sodium Succinate 50 mg 09/14/19 09:00 09/14/19 14:02 Solu-Cortef IVP 09/21/19 03:01 50 mg 0300,0900,1500,2100 PRECIOUS Administration Levofloxacin 750 mg/ Device 150 mls @ 100 mls/hr 09/10/19 15:00 09/14/19 14: 08 IVPB 150 mls Q24HR PRECIOUS Administration Amiodarone HCl 450 mg/ 259 mls @ 0 mls/hr 09/12/19 16:30 09/14/19 08:56 Dextrose/Water IVPB 259 mls INF PRECIOUS Administration Protocol Per Protocol Potassium Chloride 40 meq/ 270 mls @ 135 mls/hr 09/13/19 09:47 09/14/19 14:52 Sodium Chloride IVPB 270 mls ASDIR PRN Administration FOR SERUM K+ 2.5 - 3.5 Fentanyl Citrate 2,000 mcg/ 100 mls @ 0 mls/hr 09/13/19 09:49 09/14/19 06:33 Sodium Chloride IV 10/13/19 09:49 100 mls INF PRECIOUS Administration Protocol Per Protocol Vancomycin HCl 1 gm/ Device 200 mls @ 200 mls/hr 09/14/19 09:00 09/14/19 08: 54 IVPB 200 mls Q12HR PRECIOUS Administration Insulin Human Lispro 0 units 09/13/19 20:04 09/14/19 17:31 Humalog SC 2 unit .MODERATE SLIDING SC PRN Administration Moderate Correctional Scale Lisinopril 10 mg 09/11/19 21:00 09/13/19 21:27 Zestril PO Not Given HS PRECIOUS Lorazepam 2 mg 09/13/19 09:49 09/14/19 02:24 Ativan SLOW IVP 10/13/19 09:49 2 mg Q1H PRN Administration Breakthrough agitation Nicotine 21 mg 09/09/19 21:00 09/13/19 21:28 Nicoderm Patch TD 21 mg Q24HR PRECIOUS Administration Pantoprazole Sodium 40 mg 09/14/19 09:00 09/14/19 09:48 Protonix PO 40 mg BID PRECIOUS Administration Propofol 1,000 mg 09/13/19 09:49 09/14/19 14:58 Diprivan IV 10/13/19 09:49 1,000 mg INF PRN Administration TO ACHIEVE GOAL RASS Protocol Sodium Chloride 10 ml 09/10/19 21:00 09/14/19 09:48 Flush - Normal Saline IVF 10 ml Q12HR PRECIOUS Administration Ticagrelor 90 mg 09/11/19 09:00 09/14/19 09:49 Brilinta PO 90 mg DAILY PRECIOUS Administration Topiramate 200 mg 09/11/19 09:00 09/14/19 09:49 Topamax PO 200 mg DAILY PRECIOUS Administration - Exam General Appearance: NAD, awake alert General - other findings: intubated Eye: PERRL ENT: normocephalic atraumatic, no oropharyngeal lesions Neck: no JVD Heart: RRR, no murmur, no gallops, no rubs Respiratory: CTAB, no wheezes, no rales, no ronchi Gastrointestinal: soft, non-tender, non-distended, normal bowel sounds Extremities: no cyanosis, no clubbing, no edema Skin: normal turgor, no lesions, no rashes Neurological: cranial nerve grossly intact, normal sensation to touch, no focal deficits, no new deficit Musculoskeletal: normal tone, normal strength, no muscle wasting Psychiatric: normal affect, normal behavior, A&O x 3, oriented to person Hosp A/P - Plan ECHO: moderate to severe AR. Moderate aortic insufficiency THis is a 58 year old female who initially presented with acute encephalopathy. She developed respiratory failure and aflutter with RVR requiring BIPAP. Subsequently had episode of unresponsiveness after pulling off BIPAP and required intubation Acute hypoxic respiratory failure secondary to severe sepsis from pneumonia - fever of 100.1 today, WBC elevated at 13. Chest X ray shows multifocal infiltrates, although appears to be worst on the right. Blood cultures negative , COVID 19 negative -was on IV levaquin, vancomycin added 09/13 by pulmonary. I will add IV zosyn given that she is hypotensive Hypotension - improved with discontinuation of propofol - hydrocortisone started today - hold lasix - coreg discontinued - I will discontinue lisinopril as well Atrial fibrillation/Aflutter - on amiodarone drip for now by cardiology - s/p cardioversion 09/12. Continue brilinta Moderate to severe MR - noted on ECHO, will monitor. Cardiology is following, will monitor for edema Hypokalemia - potassium 3.1, repeat 3.3, continue replacement. Will recheck Code status: full code
[2019-09-14] MEDS: Lisinopril 10 MG TAB PO SCH (19:52)
[2019-09-14] MEDS: Atorvastatin Calcium 20 MG TAB PO SCH (19:52)
[2019-09-14] MEDS: Nicotine 21 MG PATCH TD SCH (19:53)
[2019-09-14] MEDS ORDERED: Piperacillin/Tazobactam 3.375 GM in Sodium Chloride 0.9% 100 ML IVPB SCH (22:30)
[2019-09-15] MEDS: Albuterol Sulfate 2.5 mg/3 ml Neb NEB SCH ×4 (00:20→18:48)
[2019-09-15] MEDS: fentaNYL Citrate/PF 2,000 MCG in Sodium Chloride 0.9% 60 ML IV SCH (00:23)
[2019-09-15] MEDS: Hydrocortisone Sod Succ/PF 100 mg/2 ml Vial IVP SCH ×4 (02:23→20:40)
[2019-09-15] MEDS: Enoxaparin Sodium 60 MG/0.6 ML SYRINGE SC SCH ×2 (02:23→14:25)
[2019-09-15] MEDS: Propofol 1,000 MG/100 ML VIAL IV PRN (02:23)
[2019-09-15] MEDS: HumaLOG 300 UNITS/3 ML VIAL SC PRN ×3 (04:15→16:31)
[2019-09-15] MEDS: Piperacillin/Tazobactam 3.375 GM in Sodium Chloride 0.9% 100 ML IVPB SCH ×3 (05:01→17:04)
[2019-09-15 05:14] LABS: Anion Gap 11 mmol/L (10-20); BUN (Urea Nitrogen) 16 mg/dL (9.8-20.1); Calc. Creatinine Clearance 95 mL/min (70-130); Calcium 8.1 mg/dL (7.8-10.44); Carbon Dioxide 28 mmol/L (22-29); Chloride 103 mmol/L (98-107); Estimated GFR-MDRD 90; Glucose 180 mg/dL (70-105); Potassium 3.4 mmol/L (3.5-5.1); Sodium 139 mmol/L (136-145)
[2019-09-15 05:59] LABS: Band 3 % (5-11); Lymphocytes 12 % (21-51); MDiff Complete? YES; Mean Corpuscular Hemoglobin 30.2 pg (27.0-31.0); Mean Corpuscular Volume 97.4 fL (78.0-98.0); Mean Platelet Volume 8.5 fL (7.4-10.4); Monocytes 7 % (0-10); Neutrophil 78 % (42-75); Platelet Count 231 thou/uL (130-400); Platelet Morphology Comment Appears Adequate; RBC Distribution Width 13.4 % (11.5-14.5); Red Blood Cell (RBC) Count 3.65 mill/uL (4.20-5.40); White Blood Cell (WBC) Count 9.6 thou/uL (4.8-10.8)
[2019-09-15 06:53] LABS: Actual Bicarbonate (HCO3a) 27.2 mEq/L (22-28); Base Excess (BEa) 3.5 mEq/L (-2.0 to +3.0); CO2 Tension 38.1 mmHg (35.0-45.0); Calcium, Ionized (arterial) 1.12 mmol/L (1.12-1.30); Carboxyhemoglobin (COHb) 1.3 gm% (0.0-3.0); Hemoglobin (Hb) 11.7 g/dL (12.0-16.0); O2 Tension (PaO2), arterial 100.6 mmHg (80.0-100.0); Potassium - ABG Lab 4.17 mmol/L (3.70-5.30); pH, Arterial 7.47 (7.35-7.45)
[2019-09-15 07:19] LABS: ALV-art Gradient 136.975 (0-20); Puncture Site RRAD
[2019-09-15] MEDS: Digoxin 0.125 MG TAB PO SCH (08:00)
[2019-09-15] MEDS: Aspirin 81 mg Enteric Coated Tablet PO SCH (08:00)
[2019-09-15] MEDS: TICAGRELOR 90 MG TABLET PO SCH (08:00)
[2019-09-15] MEDS: Topiramate 100 MG TAB PO SCH (08:01)
[2019-09-15] MEDS: Pantoprazole 40 MG GRANULES PACKET PO SCH (08:01)
[2019-09-15] MEDS: Vancomycin 1 GM in Premix Bag 1 BAG IVPB SCH ×2 (08:31→20:49)
[2019-09-15] MEDS: Furosemide 40 MG/4 ML VIAL SLOW IVP SCH (08:34)
--- NOTE | 2019-09-15 08:40 | PRG ---
DATE OF SERVICE: 09/15/2019 TIME SPENT: 32 minutes of critical care time. SUBJECTIVE: The patient remains intubated on mechanical ventilation. She is sitting upright today, alert, off sedation, looks very good. OBJECTIVE: VITAL SIGNS: Temperature 99.3, T-max 100.3, pulse 70, blood pressure 91/66, O2 saturation 100%. 24-hour intake 2306, output 2900. She has been almost -4 L over the last 3 days. HEENT: Unremarkable. NECK: No adenopathy or JVD. LUNGS: Few crackles bilaterally. CARDIAC: S1, S2. Regular. ABDOMEN: Soft. EXTREMITIES: No edema. LABORATORY DATA: Sodium 139, potassium 3.4, chloride 103, CO2 of 28, BUN 16, creatinine 0.6, glucose 180, white blood cell count 9.6, hematocrit 35.6, and platelet count 231, with 78% neutrophils, 3% bands. PH of 7.47, pCO2 of 38, PO2 of 100 on SIMV rate of 16, tidal volume 450, PEEP 7, pressure support 10, FiO2 of 40%. Chest x-ray is rotated, still looks like she has some pulmonary edema. ASSESSMENT: 1. Acute hypoxic respiratory failure requiring mechanical ventilation. 2. Bilateral pneumonia. 3. Pulmonary edema. 4. Atrial fibrillation/flutter-now converted to sinus rhythm. 5. Hypokalemia. 6. Moderate to severe mitral regurgitation, which is probably the source of pulmonary infiltrates. PLAN: 1. Gas exchange and respiratory status looks a lot more stable. I think she can have a spontaneous breathing trial performed and if she tolerates 30 minutes of spontaneous breathing, can be extubated. 2. I will go ahead and push one more dose of diuretic as her renal function has not been compromised by continued diuresis. 3. Decrease Solu-Cortef dose. 4. Continue antibiotics. Job ID: [id number]
[2019-09-15] MEDS: Potassium Chloride 40 MEQ in Sodium Chloride 0.9% 250 ML 250 ML IVPB PRN (10:16)
--- NOTE | 2019-09-15 11:31 | RAD ---
SINGLE VIEW CHEST: HISTORY: Pneumonia. COMPARISON: 09/14/19 FINDINGS: A single view of the chest shows an enlarged but stable cardiomediastinal silhouette. Lines and tubes are unchanged in position. There are stable multifocal air space opacities in the lungs. There may b e a small right pleural effusion. Hardware is seen in the left humerus. IMPRESSION: Stable examination. POS: EAA
--- NOTE | 2019-09-15 11:51 | PRG ---
DATE OF SERVICE: 09/15/2019 SUBJECTIVE: Ms. Hall is sitting up in bed, feels well, no complaints. She is in sinus rhythm. OBJECTIVE: VITAL SIGNS: Blood pressure 123/83, pulse is in the 80s, it is sinus. LUNGS: Clear. CARDIAC: Normal S1, normal S2. ABDOMEN: Soft and nontender. EXTREMITIES: No edema. ASSESSMENT: 1. Status post cardioversion, maintaining sinus rhythm. 2. Hypotension, improved. 3. Mildly depressed left ventricular function. PLAN: Continue current regimen. Dr. Morton will be back to see the patient tomorrow. Job ID: [id number]
--- NOTE | 2019-09-15 11:53 | PDOC.HOSPP ---
- Subjective Encounter Date: 09/15/19 Encounter Time: 11:51 Subjective: Patient has been extubated. She has no complains. She passed bedside swallow evaluation. Patient is hungry and wants to eat. PT is in the room currently She is getting hydrocortisone for hypotension, BP currently 99/40. She has mild cough - Objective Vital Signs & Weight: Vital Signs (12 hours) Temp Pulse Resp BP Pulse Ox 09/15/19 11:00 99 09/15/19 08:08 83 09/15/19 08:00 99.4 F 82 12 99 09/15/19 07:54 78 12 100 09/15/19 06:00 16 09/15/19 04:00 99.3 F 16 09/15/19 03:12 73 09/15/19 02:00 16 09/15/19 00:20 70 16 100 09/15/19 00:18 70 09/15/19 00:00 99.0 F 16 103/65 Weight Admit Weight 146 lb 5 oz Weight 146 lb 5 oz Most Recent Monitor Data Heart Rate from ECG 83 NIBP 130/79 NIBP BP-Mean 96 Respiration from ECG 21 SpO2 100 I&O: 09/14/19 09/15/19 09/16/19 06:59 06:59 06:59 Intake Total 830.1 2306 Output Total 3400 2900 1205 Balance -2569.9 -594 -1205 Result Diagrams: 09/15/19 04:10 09/15/19 04:10 Additional Labs: Accuchecks 09/15/19 09/15/19 09/14/19 10:23 04:04 22:02 POC Glucose 303 H 180 H 166 H 09/14/19 17:34 POC Glucose 180 H Hospitalist ROS - Review of Systems Constitutional: denies: fever, chills - Medication Medications: Active Medications Generic Name Dose Route Start Last Admin Trade Name Freq PRN Reason Stop Dose Admin Albuterol Sulfate 2.5 mg 09/14/19 01:00 09/15/19 07:54 Ventolin NEB 2.5 mg [id number] PRECIOUS Administration Aspirin 81 mg 09/11/19 09:00 09/15/19 08:00 Ecotrin PO 81 mg DAILY PRECIOUS Administration Atorvastatin Calcium 20 mg 09/12/19 21:00 09/14/19 19:52 Lipitor PO 20 mg 2100 PRECIOUS Administration Digoxin 0.125 mg 09/12/19 09:00 09/15/19 08:00 Lanoxin PO 0.125 mg DAILY PRECIOUS Administration Enoxaparin Sodium 60 mg 09/10/19 03:00 09/15/19 02:23 Lovenox SC 60 mg 0300,1500 PRECIOUS Administration Furosemide 40 mg 09/15/19 09:00 09/15/19 08:34 Lasix SLOW IVP 40 mg DAILY PRECIOUS Administration Hydrocortisone Sodium Succinate 50 mg 09/15/19 09:00 09/15/19 08:12 Solu-Cortef IVP 09/26/19 21:01 Not Given BID PRECIOUS Levofloxacin 750 mg/ Device 150 mls @ 100 mls/hr 09/10/19 15:00 09/14/19 14: 08 IVPB 150 mls Q24HR PRECIOUS Administration Amiodarone HCl 450 mg/ 259 mls @ 0 mls/hr 09/12/19 16:30 09/14/19 23:02 Dextrose/Water IVPB 259 mls INF PRECIOUS Administration Protocol Per Protocol Potassium Chloride 40 meq/ 270 mls @ 135 mls/hr 09/13/19 09:47 09/15/19 10:16 Sodium Chloride IVPB 270 mls ASDIR PRN Administration FOR SERUM K+ 2.5 - 3.5 Fentanyl Citrate 2,000 mcg/ 100 mls @ 0 mls/hr 09/13/19 09:49 09/15/19 00:23 Sodium Chloride IV 10/13/19 09:49 100 mls INF PRECIOUS Administration Protocol Per Protocol Vancomycin HCl 1 gm/ Device 200 mls @ 200 mls/hr 09/14/19 09:00 09/15/19 08: 31 IVPB 200 mls Q12HR PRECIOUS Administration Piperacillin Sod/Tazobactam 100 mls @ 200 mls/hr 09/15/19 06:00 09/15/19 05: 01 Sod 3.375 gm/ Sodium Chloride IVPB 100 mls Q6HR PRECIOUS Administration Insulin Human Lispro 0 units 09/13/19 20:04 09/15/19 10:19 Humalog SC 8 unit .MODERATE SLIDING SC PRN Administration Moderate Correctional Scale Lorazepam 2 mg 09/13/19 09:49 09/14/19 02:24 Ativan SLOW IVP 10/13/19 09:49 2 mg Q1H PRN Administration Breakthrough agitation Nicotine 21 mg 09/09/19 21:00 09/14/19 19:53 Nicoderm Patch TD 21 mg Q24HR PRECIOUS Administration Pantoprazole Sodium 40 mg 09/14/19 09:00 09/15/19 08:01 Protonix PO 40 mg BID PRECIOUS Administration Potassium Chloride 40 meq 09/13/19 09:47 09/15/19 05:48 Klor-Con PER TUBE 40 meq ASDIR PRN Administration FOR SERUM K+ 2.5-3.5 Propofol 1,000 mg 09/13/19 09:49 09/15/19 02:23 Diprivan IV 10/13/19 09:49 1,000 mg INF PRN Administration TO ACHIEVE GOAL RASS Protocol Sodium Chloride 10 ml 09/10/19 21:00 09/15/19 08:34 Flush - Normal Saline IVF 10 ml Q12HR PRECIOUS Administration Ticagrelor 90 mg 09/11/19 09:00 09/15/19 08:00 Brilinta PO 90 mg DAILY PRECIOUS Administration Topiramate 200 mg 09/11/19 09:00 09/15/19 08:01 Topamax PO 200 mg DAILY PRECIOUS Administration - Exam General Appearance: NAD, awake alert Eye: PERRL, anicteric sclera ENT: normocephalic atraumatic, no oropharyngeal lesions Neck: supple, no JVD Heart: RRR, no murmur, no gallops, no rubs Respiratory - other findings: mild crackle right base Gastrointestinal: soft, non-tender, non-distended, normal bowel sounds Extremities: no cyanosis, no clubbing, no edema Skin: normal turgor, no lesions, no rashes Neurological: cranial nerve grossly intact, normal sensation to touch, no focal deficits, no new deficit Hosp A/P - Plan ECHO: moderate to severe AR. Moderate aortic insufficiency Chest X ray 09/14: stable multifocal infiltrates, small right pleural effusion THis is a 58 year old female who initially presented with acute encephalopathy. She developed respiratory failure and aflutter with RVR requiring BIPAP. Subsequently had episode of unresponsiveness after pulling off BIPAP and required intubation Acute hypoxic respiratory failure secondary to severe sepsis from pneumonia - patient is s/p extubation today. Chest Xray 09/13 showed multifocal infiltrates, repeat today stable - continue vancomycin (D1 09/13), zosyn (d1 09/13) and levaquin - hydrocortisone being weaned - wean oxygen saturation to room air Hypotension - improving, continue hydrocortisone - hold lasix and lisinopril and coreg Atrial fibrillation/Aflutter - on amiodarone drip for now by cardiology - s/p cardioversion 09/12. Continue brilinta Moderate to severe MR - noted on ECHO, will monitor. Cardiology is following, will monitor for edema Hypokalemia - potassium 3.4, will recheck tomorrow Dispo: continue to wean oxygen saturation, pending weaning of amio drip. Could possibly transfer to tele Code status: full code
[2019-09-15] MEDS: Amiodarone 450 MG in Dextrose 5% in Water 250 ML IVPB SCH (17:29)
[2019-09-15] MEDS: clonazePAM 1 MG TAB PO SCH (17:58)
[2019-09-15 20:27] LABS: Vancomycin, Trough 11.3 ug/mL
[2019-09-15] MEDS: Atorvastatin Calcium 20 MG TAB PO SCH (20:40)
[2019-09-15] MEDS: Nicotine 21 MG PATCH TD SCH (20:49)
[2019-09-16] MEDS: Piperacillin/Tazobactam 3.375 GM in Sodium Chloride 0.9% 100 ML IVPB SCH ×5 (00:09→23:50)
[2019-09-16] MEDS: Albuterol Sulfate 2.5 mg/3 ml Neb NEB SCH ×5 (00:20→23:15)
[2019-09-16 03:48] LABS: #Eosinphils 0.1 thou/uL (0.0-0.7); #Lymphocytes 1.6 thou/uL (1.20-3.40); #Neutrophils 11.1 thou/uL (1.40-6.50); %Basophils 0.1 % (0.0-1.0); %Eosinophils 0.4 % (0.0-10.0); %Lymphocytes 11.9 % (21.0-51.0); %Neutrophils 80.6 % (42.0-75.0); Hemoglobin 11.8 g/dL (12.0-16.0); Mean Corpuscular Hemoglobin 31.5 pg (27.0-31.0); Mean Corpuscular Volume 98.7 fL (78.0-98.0); Mean Platelet Volume 7.7 fL (7.4-10.4); Platelet Count 245 thou/uL (130-400); RBC Distribution Width 13.3 % (11.5-14.5); Red Blood Cell (RBC) Count 3.73 mill/uL (4.20-5.40); White Blood Cell (WBC) Count 13.8 thou/uL (4.8-10.8)
[2019-09-16] MEDS: Enoxaparin Sodium 60 MG/0.6 ML SYRINGE SC SCH ×2 (03:50→14:24)
[2019-09-16 04:06] LABS: Anion Gap 11 mmol/L (10-20); BUN (Urea Nitrogen) 13 mg/dL (9.8-20.1); Calc. Creatinine Clearance 93 mL/min (70-130); Calcium 8.3 mg/dL (7.8-10.44); Carbon Dioxide 30 mmol/L (22-29); Chloride 97 mmol/L (98-107); Estimated GFR-MDRD 89; Glucose 201 mg/dL (70-105); Potassium 3.3 mmol/L (3.5-5.1); Sodium 135 mmol/L (136-145)
[2019-09-16] MEDS: HumaLOG 300 UNITS/3 ML VIAL SC PRN ×3 (05:38→17:09)
[2019-09-16] MEDS: Vancomycin 1 GM in Premix Bag 1 BAG IVPB SCH ×3 (06:18→22:13)
[2019-09-16] MEDS ORDERED: ELECTROLYTE REPLACEMENT PROTOCOL FS PRN (08:14)
[2019-09-16] MEDS: Topiramate 100 MG TAB PO SCH (08:40)
[2019-09-16] MEDS: clonazePAM 1 MG TAB PO SCH ×3 (08:40→21:54)
[2019-09-16] MEDS: Aspirin 81 mg Enteric Coated Tablet PO SCH (08:40)
[2019-09-16] MEDS: Digoxin 0.125 MG TAB PO SCH (08:40)
[2019-09-16] MEDS: TICAGRELOR 90 MG TABLET PO SCH ×2 (08:41→20:45)
[2019-09-16] MEDS: Hydrocortisone Sod Succ/PF 100 mg/2 ml Vial IVP SCH ×2 (08:41→20:46)
[2019-09-16] MEDS: Furosemide 40 MG/4 ML VIAL SLOW IVP SCH (08:41)
[2019-09-16] MEDS: Atorvastatin Calcium 20 MG TAB PO SCH ×2 (08:51→20:45)
[2019-09-16] MEDS: Amiodarone 450 MG in Dextrose 5% in Water 250 ML IVPB SCH ×2 (10:07→23:54)
--- NOTE | 2019-09-16 10:40 | PRG ---
DATE OF SERVICE: 09/16/2019 SUBJECTIVE: The patient remains in the CCU. She was extubated successfully yesterday. She is up in a chair. Appears comfortable, but has fallen back in atrial fibrillation. OBJECTIVE: VITAL SIGNS: Temperature 97.5, pulse 78, blood pressure 150/79, and O2 saturation 95%. Total intake 2970, output 2505. HEENT: Unremarkable. NECK: No JVD. CARDIAC: S1 and S2, irregularly irregular. LUNGS: Crackles. ABDOMEN: Soft. EXTREMITIES: No edema. LABORATORY DATA: Sodium 135, potassium 3.3, chloride 97, CO2 of 30, BUN 13, creatinine 0.6, and glucose 201. White blood cell count 13.8, hematocrit 36.8, and platelet count 245. ASSESSMENT: 1. Atrial fibrillation with rapid ventricular response. 2. X-ray showing pulmonary edema. 3. Depressed left ventricular function. PLAN: 1. I will leave the patient in ICU until Cardiology had a chance to see her again. She may require assistance of EP. 2. The patient is continuing IV antibiotics for presumed pneumonia. 3. Continue diuretics, potassium supplementation, daily lab checks. Job ID: [id number]
--- NOTE | 2019-09-16 11:13 | PQF ---
JOSELIN LANCASTER JOSEPH, [facility] [id number] CLINICAL DOCUMENTATION IMPROVEMENT CLARIFICATION FORM: ICD-10 Updated PLEASE DO AN ADDENDUM TO THE PROGRESS NOTE WITH ANY DOCUMENTATION UPDATES OR ADDITIONS AND CARRY THROUGH TO DC SUMMARY. THANK YOU. DATE: 09/16/2019 ATTN:DR. Esa RUIZ Please exercise your independent, professional judgment in responding to the clarification form. Clinical indicators are provided on the bottom of this form for your review. Diagnosis: SEPSIS Present on Admission (POA): [ X ] Yes [ ] No [ ] Unable to determine For continuity of documentation, please document condition throughout progress notes and discharge summary. Thank You. CLINICAL INDICATORS - SIGNS / SYMPTOMS / LABS/ RSULTS AND LOCATION IN MR 09/08 ED REPORT: PRESENTS PER AMS, PULSE 135, RESP 35, O2 SAT 93% RA// ED PHYSICIAN FINAL DX: ATRIAL FLUTTER, HYPOXIA, RESPIRATORY FAILURE 09/08 H&P ( [facility]) ASSESSMENT AND PLAN: 7). COVID-19 TO BE RULED OUT. 09/08 WBC 10.8 09/11 BANDS 2 09/09 WBC 8.1 09/13 BANDS 10 09/10 WBC 14.8 09/14 BANDS 21 09/11 WBC 20.8 09/12 WBC 17.7 09/13 WBC 13.0 09/14 WBC 9.6 09/15 WBC 13.8 09/13 PN (JOSEPH) INITIALLY PRESENTED WITH ACUTE ENCEPHALOPATHY, SHE DEVELOPED RESPIRATORY FAILURE AND A-FLUTTER WITH RVR REQUIRING BIPAP. SUBSEQUENTLY HAD AN EPISODE OF UNRESPONSIVENESS AFTER PULLING OFF BIPAP AND REQUIRED INTUBATION. -- ACUTE HYPOXIC RESPIRATORY FAILURE SECONDARY TO SEVERE SEPSIS FROM PNEUMONIA; COVID TEST NEGATIVE, TEMP 100.3 TODAY RISK: DX PNEUMONIA, ACUTE HYPOXIC RESP FAILURE ( JOSEPH/PN ) 09/13 TREATMENTS: SERIAL LABS ( 09/08- PRESENT) LEVAQUIN IV ( 09/09-09/14) ZOSYN IV ( 09/14- PRESENT) MECHANICAL VENTILATION ( 09/12-04/16) THANK YOU! JAVI (This form is maintained as a part of the permanent medical record) 2014 [employer], [employer]. All Rights Reserved EDUARD [email or web address] [facility]
--- NOTE | 2019-09-16 11:58 | RAD ---
CHEST 1 VIEW: INDICATION: History of pneumonia. COMPARISON: Prior study dated September 15, 2019. FINDINGS: The patient has been intervally extubated with removal of the gastric catheter. Bilateral airspace d isease persists. Small bilateral pleural effusions remain. No pneumothorax is evident. Mild cardio megaly is stable-appearing. Instrumentation involving the left humerus is similar-appearing. IMPRESSION: 1. Interval extubation. 2. Bilateral airspace disease persists consistent with persistent pneumonia. 3. Small bilateral pleural effusions. 4. No pneumothorax. POS: BH
[2019-09-16] MEDS: Acetaminophen 325 MG TAB PER TUBE PRN ×2 (12:03→18:17)
--- NOTE | 2019-09-16 12:11 | PDOC.CPN ---
- Subjective Date: 09/16/19 Time: 12:07 Interval history: She is now extubated. Emy states her breathing is "ok". She went back into afib RVR this morning. - Review of Systems General: denies: fever/chills, weight/appetite/sleep changes, night sweats, fatigue Respiratory: reports: congestion, shortness of breath, exercise intolerance. denies: cough Cardiovascular: denies: chest pain, palpitation, edema, paroxysmal nocturnal dyspnea, orthopnea Gastrointestinal: denies: nausea, vomiting, diarrhea, constipation, abd pain, GI bleeding Musculoskeletal: denies: pain, tenderness, stiffness, swelling, arthritis/ arthralgias Neurological: denies: numbness, syncope, seizure, weakness - Objective Allergies/Adverse Reactions: Allergies Allergy/AdvReac Type Severity Reaction Status Date / Time ketorolac Allergy Verified 09/10/19 06:45 tramadol Allergy Verified 09/10/19 06:45 Unable to Assess Allergy Unverified 09/10/19 06:45 Visit Medications: Current Medications Acetaminophen (Tylenol) 650 mg PER TUBE Q6H PRN PRN Reason: Fever > 101 Last Admin: 09/16/19 12:03 Dose: 650 mg Albuterol Sulfate (Ventolin) 2.5 mg NEB P3CC-AO [facility] Last Admin: 09/16/19 07:03 Dose: 2.5 mg Aspirin (Ecotrin) 81 mg PO DAILY [facility] Last Admin: 09/16/19 08:40 Dose: 81 mg Atorvastatin Calcium (Lipitor) 20 mg PO 2100 [facility] Last Admin: 09/15/19 20:40 Dose: 20 mg Bisacodyl (Dulcolax) 10 mg PO DAILYPRN PRN PRN Reason: Constipation Clonazepam (Klonopin) 2 mg PO TID [facility] Last Admin: 09/16/19 08:40 Dose: 2 mg Dextrose/Water (Dextrose 50%) 25 gm SLOW IVP PRN PRN PRN Reason: Hypoglycemia Digoxin (Lanoxin) 0.125 mg PO DAILY [facility] Last Admin: 09/16/19 08:40 Dose: 0.125 mg Enoxaparin Sodium (Lovenox) 60 mg SC 0300,1500 [facility] Last Admin: 09/16/19 03:50 Dose: 60 mg Furosemide (Lasix) 40 mg SLOW IVP DAILY [facility] Last Admin: 06/22/20 08:41 Dose: 40 mg Glucagon (Glucagon) 1 mg IM PRN PRN PRN Reason: Hypoglycemia Hydrocortisone Sodium Succinate (Solu-Cortef) 50 mg IVP BID PRECIOUS Stop: 09/26/19 21:01 Last Admin: 09/16/19 08:41 Dose: 50 mg Levofloxacin 750 mg/ Device 150 mls @ 100 mls/hr IVPB Q24HR PRECIOUS Last Admin: 09/15/19 14:55 Dose: 150 mls Dextrose/Water (D5w) 1,000 mls @ 0 mls/hr IV .Q0M PRN PRN Reason: Hypoglycemia Amiodarone HCl 450 mg/ (Dextrose/Water) 259 mls @ 0 mls/hr IVPB INF PRECIOUS; Protocol Last Admin: 09/16/19 10:07 Dose: 259 mls Fentanyl Citrate 2,000 mcg/ (Sodium Chloride) 100 mls @ 0 mls/hr IV INF PRECIOUS; Protocol Stop: 10/13/19 09:49 Last Admin: 09/15/19 00:23 Dose: 100 mls Piperacillin Sod/Tazobactam (Sod 3.375 gm/ Sodium Chloride) 100 mls @ 200 mls/ hr IVPB Q6HR PRECIOUS Last Admin: 09/16/19 11:18 Dose: 100 mls Vancomycin HCl 1 gm/ Device 200 mls @ 200 mls/hr IVPB Q8HR PRECIOUS Last Admin: 09/16/19 06:18 Dose: 200 mls Insulin Human Lispro (Humalog) 0 units SC .MODERATE SLIDING SC PRN PRN Reason: Moderate Correctional Scale Last Admin: 09/16/19 11:19 Dose: 6 unit Lorazepam (Ativan) 2 mg SLOW IVP Q1H PRN PRN Reason: Breakthrough agitation Stop: 10/13/19 09:49 Last Admin: 09/14/19 02:24 Dose: 2 mg Melatonin (Melatonin) 3 mg PO HS PRN PRN Reason: Insomnia Miscellaneous Medication (Pharmacy To Dose) 1 each IVPB PRN PRN PRN Reason: Pharmacy VANCOMYCIN Morphine Sulfate (Morphine) 2 mg SLOW IVP Q1H PRN PRN Reason: BREAKTHROUGH PAIN/Agitation Stop: 10/13/19 09:49 Nicotine (Nicoderm Patch) 21 mg TD Q24HR [facility] Last Admin: 09/15/19 20:49 Dose: 21 mg Electrolyte (Replacement Protocol) 0 each FS PRN PRN PRN Reason: FOR ELECTROLYTE REPLACEMENT Pantoprazole Sodium (Protonix) 40 mg PO BID [facility] Last Admin: 09/16/19 08:41 Dose: 40 mg Propofol (Diprivan) 1,000 mg IV INF PRN; Protocol PRN Reason: TO ACHIEVE GOAL RASS Stop: 10/13/19 09:49 Last Admin: 09/15/19 02:23 Dose: 1,000 mg Propofol (Diprivan Bolus) 20 mg IV Q5MIN PRN PRN Reason: BREAKTHROUGH AGITATION Stop: 10/13/19 09:49 Sodium Chloride (Flush - Normal Saline) 10 ml IVF Q12HR [facility] Last Admin: 09/16/19 08:42 Dose: 10 ml Sodium Chloride (Flush - Normal Saline) 10 ml IVF PRN PRN PRN Reason: Saline Flush Sterile Water (Bacteriostatic Water) 1 ml FS PRN PRN PRN Reason: RECONSTITUTION Ticagrelor (Brilinta) 90 mg PO BID [facility] Topiramate (Topamax) 200 mg PO DAILY [facility] Last Admin: 09/16/19 08:40 Dose: 200 mg Vital Signs & Weight: Vital Signs Temp Pulse Resp Pulse Ox 09/16/19 08:40 111 H 09/16/19 07:03 77 21 H 97 09/16/19 04:00 97.5 F L 09/16/19 00:20 78 18 100 Admit Weight 146 lb 5 oz Weight 146 lb 5 oz - Physical Exam General: alert & oriented x3 HEENT: mucus membranes moist Neck: supple neck Cardiac: irregularly regular Lungs: decreased breath sounds Neuro: grossly intact Abdomen: active bowel sounds Extremities: no edema Skin: clear Musculoskeletal: no pain - Labs Result Diagrams: 09/16/19 03:30 09/16/19 03:30 Troponin/CKMB Troponin I 0.026 ng/mL (< 0.028) 09/09/19 19:56 - Telemetry Supraventricular conduction: atrial fibrillation - Assessment/Plan Assessment/Plan: 1. Afib RVR 2. Aflutter at first. 3. COPD, with exacerbation 4. Acute on chronic systolic heart failure 5. COVID-19 was ruled out. 6. Hypokalemia. Likely from diuresis. 7. Fever over the weekend. PLAN: - Continue IV diuresis - Continue amiodarone drip - Continue full dose lovenox. - Continue digoxin for rate control now. - Replace K to above 4.0 - If she remains in afib will plan on repeat cardioversion. - Will consult EP. - Critical Care Time Critical care time (mins): 30
[2019-09-16 14:38] LABS: Potassium 3.1 mmol/L (3.5-5.1)
--- NOTE | 2019-09-16 19:30 | PDOC.HOSPP ---
- Subjective Encounter Date: 09/16/19 Encounter Time: 13:00 Subjective: THe patient is doing well today, she states her breathing she feels better. She is mildly SOB. She is still on amiodarone drip, weaned down to 0.5 today. She has not really ambulated much - Objective Vital Signs & Weight: Vital Signs (12 hours) Temp Pulse Resp Pulse Ox 09/16/19 13:54 122 H 18 95 09/16/19 12:00 98.5 F 09/16/19 08:40 111 H 09/16/19 08:00 98.7 F 100 Weight Admit Weight 146 lb 5 oz Weight 146 lb 5 oz Most Recent Monitor Data Heart Rate from ECG 108 NIBP 107/66 NIBP BP-Mean 79 Respiration from ECG 27 SpO2 97 I&O: 09/15/19 09/16/19 09/17/19 06:59 06:59 06:59 Intake Total 2306 2970 2232.4 Output Total 2900 2505 4120 Balance -594 465 -1887.6 Result Diagrams: 09/16/19 03:30 09/16/19 14:10 Additional Labs: Accuchecks 09/16/19 09/16/19 09/16/19 17:04 11:23 05:35 POC Glucose 207 H 284 H 194 H 09/15/19 21:46 POC Glucose 120 H Hospitalist ROS - Review of Systems Constitutional: denies: fever, chills - Medication Medications: Active Medications Generic Name Dose Route Start Last Admin Trade Name Freq PRN Reason Stop Dose Admin Acetaminophen 650 mg 09/14/19 07:34 09/16/19 18:17 Tylenol PER TUBE 650 mg Q6H PRN Administration Fever > 101 Albuterol Sulfate 2.5 mg 09/14/19 01:00 09/16/19 13:54 Ventolin NEB 2.5 mg [id number] PRECIOUS Administration Aspirin 81 mg 09/11/19 09:00 09/16/19 08:40 Ecotrin PO 81 mg DAILY PRECIOUS Administration Atorvastatin Calcium 20 mg 09/12/19 21:00 09/15/19 20:40 Lipitor PO 20 mg 2100 PRECIOUS Administration Clonazepam 2 mg 09/15/19 21:00 09/16/19 14:24 Klonopin PO 2 mg TID PRECIOUS Administration Digoxin 0.125 mg 09/12/19 09:00 09/16/19 08:40 Lanoxin PO 0.125 mg DAILY PRECIOUS Administration Enoxaparin Sodium 60 mg 09/10/19 03:00 09/16/19 14:24 Lovenox SC 60 mg 0300,1500 PRECIOUS Administration Furosemide 40 mg 09/15/19 09:00 09/16/19 08:41 Lasix SLOW IVP 40 mg DAILY PRECIOUS Administration Hydrocortisone Sodium Succinate 50 mg 09/15/19 09:00 09/16/19 08:41 Solu-Cortef IVP 09/26/19 21:01 50 mg BID PRECIOUS Administration Levofloxacin 750 mg/ Device 150 mls @ 100 mls/hr 09/10/19 15:00 09/16/19 16: 00 IVPB 150 mls Q24HR PRECIOUS Administration Amiodarone HCl 450 mg/ 259 mls @ 0 mls/hr 09/12/19 16:30 09/16/19 10:07 Dextrose/Water IVPB 259 mls INF PRECIOUS Administration Protocol Per Protocol Fentanyl Citrate 2,000 mcg/ 100 mls @ 0 mls/hr 09/13/19 09:49 09/15/19 00:23 Sodium Chloride IV 10/13/19 09:49 100 mls INF PRECIOUS Administration Protocol Per Protocol Piperacillin Sod/Tazobactam 100 mls @ 200 mls/hr 09/15/19 06:00 09/16/19 17: 21 Sod 3.375 gm/ Sodium Chloride IVPB 100 mls Q6HR PRECIOUS Administration Vancomycin HCl 1 gm/ Device 200 mls @ 200 mls/hr 09/16/19 06:00 09/16/19 14: 24 IVPB 200 mls Q8HR PRECIOUS Administration Insulin Human Lispro 0 units 09/13/19 20:04 09/16/19 17:09 Humalog SC 4 unit .MODERATE SLIDING SC PRN Administration Moderate Correctional Scale Lorazepam 2 mg 09/13/19 09:49 09/14/19 02:24 Ativan SLOW IVP 10/13/19 09:49 2 mg Q1H PRN Administration Breakthrough agitation Nicotine 21 mg 09/09/19 21:00 09/15/19 20:49 Nicoderm Patch TD 21 mg Q24HR PRECIOUS Administration Pantoprazole Sodium 40 mg 09/15/19 21:00 09/16/19 08:41 Protonix PO 40 mg BID PRECIOUS Administration Propofol 1,000 mg 09/13/19 09:49 09/15/19 02:23 Diprivan IV 10/13/19 09:49 1,000 mg INF PRN Administration TO ACHIEVE GOAL RASS Protocol Sodium Chloride 10 ml 09/10/19 21:00 09/16/19 08:42 Flush - Normal Saline IVF 10 ml Q12HR PRECIOUS Administration Topiramate 200 mg 09/11/19 09:00 09/16/19 08:40 Topamax PO 200 mg DAILY PRECIOUS Administration - Exam General Appearance: NAD, awake alert General - other findings: on nasal cannula Eye: PERRL, anicteric sclera ENT: normocephalic atraumatic, no oropharyngeal lesions Neck: supple, no JVD Heart: RRR, no murmur, no gallops, no rubs Respiratory: CTAB, no wheezes, no rales, no ronchi Gastrointestinal: soft, non-tender, non-distended, normal bowel sounds Extremities: no cyanosis, no clubbing, no edema Skin: normal turgor, no lesions, no rashes Neurological: cranial nerve grossly intact, normal sensation to touch, no focal deficits, no new deficit Musculoskeletal: normal tone, normal strength, no muscle wasting Hosp A/P - Plan ECHO: moderate to severe AR. Moderate aortic insufficiency Chest X ray 09/14: stable multifocal infiltrates, small right pleural effusion Chest X ray 09/15: persistent bilateral pneumonia, small pleural effusions THis is a 58 year old female who initially presented with acute encephalopathy. She developed respiratory failure and aflutter with RVR requiring BIPAP. Subsequently had episode of unresponsiveness after pulling off BIPAP and required intubation Acute hypoxic respiratory failure secondary to severe sepsis from pneumonia - patient is s/p extubation today. Chest Xray 09/13 showed multifocal infiltrates, repeat today stable - continue vancomycin (D1 09/13), zosyn (d1 09/13) and levaquin - Xray showed small pleural effusions bilaterally. Started IV lasix 40 mg - continue to wean oxygen to 92%, patient not on it at home Hypotension - improved, hydrocortisone weaned to 50 mg IV bid - hold lisinopril and coreg Atrial fibrillation/Aflutter - on amiodarone drip for now by cardiology - s/p cardioversion 09/12. Continue brilinta Moderate to severe MR - noted on ECHO, will monitor. Cardiology is following, will monitor for edema Hypokalemia -K 3.1, will replace with 40 meq potassium Dispo: continue to wean oxygen saturation, pending weaning of amio drip. Could possibly transfer to tele Code status: full code
[2019-09-16] MEDS ORDERED: Potassium Chloride 20 MEQ TAB PO SCH (19:45)
[2019-09-16] MEDS ORDERED: Electrolyte Replacement Protocol FS PRN (20:15)
[2019-09-16] MEDS: Nicotine 21 MG PATCH TD SCH (20:46)
[2019-09-16 22:04] LABS: Vancomycin, Trough 17.6 ug/mL
[2019-09-17] MEDS: Enoxaparin Sodium 60 MG/0.6 ML SYRINGE SC SCH ×3 (03:47→20:46)
[2019-09-17 04:11] LABS: #Eosinphils 0.1 thou/uL (0.0-0.7); #Lymphocytes 1.2 thou/uL (1.20-3.40); #Monocytes 0.6 thou/uL (0.11-0.59); %Basophils 0.1 % (0.0-1.0); %Eosinophils 0.8 % (0.0-10.0); %Lymphocytes 13.6 % (21.0-51.0); %Monocytes 6.8 % (0.0-10.0); %Neutrophils 78.8 % (42.0-75.0); Mean Corpuscular Volume 99.8 fL (78.0-98.0); Mean Platelet Volume 7.6 fL (7.4-10.4); Platelet Count 244 thou/uL (130-400); RBC Distribution Width 13.2 % (11.5-14.5); Red Blood Cell (RBC) Count 4.06 mill/uL (4.20-5.40); White Blood Cell (WBC) Count 8.9 thou/uL (4.8-10.8)
[2019-09-17 04:19] LABS: Anion Gap 12 mmol/L (10-20); BUN (Urea Nitrogen) 9 mg/dL (9.8-20.1); Calc. Creatinine Clearance 102 mL/min (70-130); Calcium 8.5 mg/dL (7.8-10.44); Carbon Dioxide 28 mmol/L (22-29); Chloride 102 mmol/L (98-107); Estimated GFR-MDRD Greater than 90; Glucose 233 mg/dL (70-105); Potassium 3.7 mmol/L (3.5-5.1); Sodium 138 mmol/L (136-145)
[2019-09-17] MEDS: Piperacillin/Tazobactam 3.375 GM in Sodium Chloride 0.9% 100 ML IVPB SCH ×2 (05:31→10:04)
[2019-09-17] MEDS: HumaLOG 300 UNITS/3 ML VIAL SC PRN ×2 (05:40→16:41)
[2019-09-17] MEDS: Vancomycin 1 GM in Premix Bag 1 BAG IVPB SCH (06:21)
--- NOTE | 2019-09-17 07:42 | CON ---
DATE OF CONSULTATION: 09/16/2019 I am seeing Mrs. Hall at our [facility] as an electrophysiology clinical program consultant. Her problems are; 1. Recurrent and persistent atrial fibrillation with rapid ventricular rate. 2. Current admission with respiratory failure requiring intubation related to known COVID pneumonia, on vancomycin, Zosyn, and Levaquin antibiotics. 3. Acute metabolic encephalopathy, mental status changes, now resolved. 4. History of preserved LVEF by 2D echo on 09/14/2019 at 55% to 60%. Normal left atrial size. Moderate aortic insufficiency. [id number] MR. 5. Diabetes. 6. History of schizophrenia and bipolar disorder, multiple suicide attempts in the past. 7. History of coronary artery disease. 8. Peripheral vascular disease with right iliac stenting. ALLERGIES: CHOCOLATE FLAVOR AND CORN. MEDICATIONS: At home included Tylenol with codeine No. 4, amitriptyline, aspirin, Lipitor, clonazepam, Benadryl, Trulicity, NovoLog, Imdur, Protonix, Brilinta, Topamax, and trazodone. SUBJECTIVE: Mrs. Hall is a poor historian. She was admitted with mental status changes, cannot recall the details. She was developing progressive shortness of breath and also mental status changes prior to her admission on the . She was ruled out of stroke. COVID serologies were negative repeatedly. She was noted to be in atrial fibrillation and flutter. She was initiated on IV amiodarone and ALTAF was performed by Dr. Morton. No clots were found and she was cardioverted on the . Subsequently, she developed atrial fibrillation again after extubation. She is still with rapid rates she has been maintaining sinus rhythm over the weekend. PAST MEDICAL HISTORY: As above. She has history of coronary artery disease with non-revascularizable circumflex disease and also peripheral vascular disease with iliac stent. SOCIAL HISTORY: Current smoker. Denies EtOH or drug abuse. FAMILY HISTORY: Not contributory. OBJECTIVE DATA: VITAL SIGNS: Blood pressure is 107/66, heart rate 79, respirations 27. The patient is afebrile. GENERAL: Alert and oriented woman, appears older than her stated age. NECK: Supple. Jugular veins not distended. CHEST: Coarse respiratory crackles. HEART: Sounds are irregularly irregular. S1 is variable. No murmur or gallop. ABDOMEN: Benign. Bowel sounds positive. EXTREMITIES: Lower extremities, no edema, clubbing or cyanosis. DATABASE: EKG is reviewed initially revealing atrial flutter, possible coarse atrial fibrillation revealing episodic organized atrial fibrillation and atypical atrial flutter appearing rhythm. Also sinus rhythm was noted post cardioversion until this morning when recurrence of atrial fibrillation was seen again. Heart rates in the 110 range. LABORATORY DATA: White cell count is 13.8, hemoglobin 11.8, platelet count is 245. Sodium 135, potassium 3.3, BUN is 13, creatinine 0.68. ABGs reveal PO2 59.7, on CPAP. ASSESSMENT AND PLAN: Mrs. Hall is a 58-year-old woman with history of schizophrenia and bipolar disorder, who has developed pneumonia, so far with negative blood cultures and negative COVID serology. She has, on the other hand, also a newly found atrial fibrillation which is persisting and with rapid ventricular rates, cardioversion reattempted. She has been on amiodarone, but no recurrence is noted. Rates are relatively rapid. At this point, I think continuation of amiodarone loading would be reasonable. She has a reasonable chance for maintaining sinus rhythm once adequate loading of amiodarone is achieved. Repeat cardioversion could be done . Recently ALTAF was negative for clots and also she has been anticoagulated since. Further QT monitoring is encouraged, especially while on Levaquin. Long-term potential for left atrial ablation could be made after full recovery. Thanking you for allowing us to participate in care of this patient. Job ID: [id number] MTDD
[2019-09-17] MEDS: Albuterol Sulfate 2.5 mg/3 ml Neb NEB SCH ×4 (07:56→23:29)
--- NOTE | 2019-09-17 09:10 | RAD ---
CHEST 1 VIEW: INDICATION: History of pneumonia. COMPARISON: Prior exam dated 09/16/2019. IMPRESSION: There is improvement in the bilateral airspace disease. There are residual infrahilar airspace opaci ties remaining. There are small bilateral pleural effusions persisting. Cardiomegaly is stable. No pneumothorax is evident. Chronic osseous changes were similar. POS: BH
[2019-09-17] MEDS: clonazePAM 1 MG TAB PO SCH ×3 (09:46→20:47)
[2019-09-17] MEDS: Topiramate 100 MG TAB PO SCH (09:46)
[2019-09-17] MEDS: Aspirin 81 mg Enteric Coated Tablet PO SCH (09:46)
[2019-09-17] MEDS: Digoxin 0.125 MG TAB PO SCH (09:46)
[2019-09-17] MEDS: TICAGRELOR 90 MG TABLET PO SCH ×2 (09:47→20:48)
[2019-09-17] MEDS: Furosemide 40 MG/4 ML VIAL SLOW IVP SCH (09:55)
[2019-09-17] MEDS: Hydrocortisone Sod Succ/PF 100 mg/2 ml Vial IVP SCH (09:55)
[2019-09-17] MEDS: Acetaminophen 325 MG TAB PER TUBE PRN ×2 (10:04→19:42)
[2019-09-17] MEDS ORDERED: Zolpidem Tartrate 5 MG TAB PO PRN (10:16)
--- NOTE | 2019-09-17 10:18 | PDOC.HOSPP ---
- Subjective Encounter Date: 09/17/19 Encounter Time: 10:17 Subjective: The patient complains of insomnia. She denies chest pain, SOB. She reports cough with some brown sputum. She did well with physical therapy today Patient still in afib with heart rate 120 on amiodarone carlos Moody states her landlord is her power of real estate associate attorney, she is telling me she does not want him to be power of real estate associate attorney any longer - Objective Vital Signs & Weight: Vital Signs (12 hours) Temp Pulse Resp Pulse Ox 09/17/19 09:46 115 H 09/17/19 07:56 105 H 20 98 09/17/19 07:52 98 09/17/19 07:36 97.4 F L 09/17/19 04:00 97.7 F 09/17/19 00:00 97.9 F 09/16/19 23:15 104 H 16 97 Weight Admit Weight 146 lb 5 oz Weight 142 lb 8 oz Most Recent Monitor Data Heart Rate from ECG 113 NIBP 97/74 NIBP BP-Mean 81 Respiration from ECG 20 SpO2 98 I&O: 09/16/19 09/17/19 09/18/19 06:59 06:59 06:59 Intake Total 2970 3072.4 Output Total 2505 5570 Balance 465 -2497.6 Result Diagrams: 09/17/19 03:26 09/17/19 03:26 Additional Labs: Accuchecks 09/17/19 09/16/19 09/16/19 05:42 20:17 17:04 POC Glucose 187 H 125 H 207 H 09/16/19 11:23 POC Glucose 284 H Hospitalist ROS - Medication Medications: Active Medications Generic Name Dose Route Start Last Admin Trade Name Freq PRN Reason Stop Dose Admin Acetaminophen 650 mg 09/14/19 07:34 09/17/19 10:04 Tylenol PER TUBE 650 mg Q6H PRN Administration Fever > 101 Albuterol Sulfate 2.5 mg 09/14/19 01:00 09/17/19 07:56 Ventolin NEB 2.5 mg [id number] PRECIOUS Administration Aspirin 81 mg 09/11/19 09:00 09/17/19 09:46 Ecotrin PO 81 mg DAILY PRECIOUS Administration Atorvastatin Calcium 20 mg 09/12/19 21:00 09/16/19 20:45 Lipitor PO 20 mg 2100 PRECIOUS Administration Clonazepam 2 mg 09/15/19 21:00 09/17/19 09:46 Klonopin PO 2 mg TID PRECIOUS Administration Digoxin 0.125 mg 09/12/19 09:00 09/17/19 09:46 Lanoxin PO 0.125 mg DAILY PRECIOUS Administration Enoxaparin Sodium 60 mg 09/17/19 09:00 09/17/19 09:47 Lovenox SC 60 mg 09,2099 PRECIOUS Administration Furosemide 40 mg 09/15/19 09:00 09/17/19 09:55 Lasix SLOW IVP 40 mg DAILY PRECIOUS Administration Hydrocortisone Sodium Succinate 50 mg 09/15/19 09:00 09/17/19 09:55 Solu-Cortef IVP 09/26/19 21:01 50 mg BID PRECIOUS Administration Amiodarone HCl 450 mg/ 259 mls @ 0 mls/hr 09/12/19 16:30 09/16/19 23:54 Dextrose/Water IVPB 259 mls INF PRECIOUS Administration Protocol Per Protocol Fentanyl Citrate 2,000 mcg/ 100 mls @ 0 mls/hr 09/13/19 09:49 09/15/19 00:23 Sodium Chloride IV 10/13/19 09:49 100 mls INF PRECIOUS Administration Protocol Per Protocol Piperacillin Sod/Tazobactam 100 mls @ 200 mls/hr 09/15/19 06:00 09/17/19 10: 04 Sod 3.375 gm/ Sodium Chloride IVPB 100 mls Q6HR PRECIOUS Administration Vancomycin HCl 1 gm/ Device 200 mls @ 200 mls/hr 09/16/19 06:00 09/17/19 06: 21 IVPB 200 mls Q8HR PRECIOUS Administration Insulin Human Lispro 0 units 09/13/19 20:04 09/17/19 05:40 Humalog SC 2 unit .MODERATE SLIDING SC PRN Administration Moderate Correctional Scale Lorazepam 2 mg 09/13/19 09:49 09/14/19 02:24 Ativan SLOW IVP 10/13/19 09:49 2 mg Q1H PRN Administration Breakthrough agitation Nicotine 21 mg 09/09/19 21:00 09/16/19 20:46 Nicoderm Patch TD 21 mg Q24HR PRECIOUS Administration Pantoprazole Sodium 40 mg 09/15/19 21:00 09/17/19 09:47 Protonix PO 40 mg BID PRECIOUS Administration Propofol 1,000 mg 09/13/19 09:49 09/15/19 02:23 Diprivan IV 10/13/19 09:49 1,000 mg INF PRN Administration TO ACHIEVE GOAL RASS Protocol Sodium Chloride 10 ml 09/10/19 21:00 09/17/19 09:55 Flush - Normal Saline IVF 10 ml Q12HR PRECIOUS Administration Ticagrelor 90 mg 09/16/19 21:00 09/17/19 09:47 Brilinta PO 90 mg BID PRECIOUS Administration Topiramate 200 mg 09/11/19 09:00 09/17/19 09:46 Topamax PO 200 mg DAILY PRECIOUS Administration - Exam General Appearance: NAD, awake alert General - other findings: on 3L nasal cannula Eye: PERRL, anicteric sclera ENT: normocephalic atraumatic, no oropharyngeal lesions Neck: no JVD Heart: RRR, no murmur, no gallops, no rubs Respiratory: CTAB, no wheezes, no rales, no ronchi Gastrointestinal: soft, non-tender, non-distended, normal bowel sounds Extremities: no cyanosis, no clubbing, no edema Hosp A/P - Plan ECHO: moderate to severe AR. Moderate aortic insufficiency Chest X ray 09/14: stable multifocal infiltrates, small right pleural effusion Chest X ray 09/15: persistent bilateral pneumonia, small pleural effusions Chest X ray 09/16: improved bilateral airspace disease THis is a 58 year old female who initially presented with acute encephalopathy. She developed respiratory failure and aflutter with RVR requiring BIPAP. Subsequently had episode of unresponsiveness after pulling off BIPAP and required intubation Acute hypoxic respiratory failure secondary to severe sepsis from pneumonia - patient is s/p extubation 09/15. Chest Xray 09/13 showed multifocal infiltrates , repeat on shows improvement - continue vancomycin (D1 09/13), zosyn (d1 09/13). Levaquin discontinued - continue lasix 40 mg IV daily - wean oxygen to 92% Hypotension - improved, wean hydrocortisone to 25 mg IV BID - hold lisinopril and coreg Atrial fibrillation/Aflutter - on amiodarone drip for now by cardiology - s/p cardioversion 09/12. Continue brilinta Moderate to severe MR - noted on ECHO, will monitor. Cardiology is following, will monitor for edema Hypokalemia - resolved Dispo: continue to wean oxygen saturation, pending weaning of amio drip. Code status: full code
--- NOTE | 2019-09-17 11:29 | PRG ---
DATE OF SERVICE: 09/17/2019 SUBJECTIVE: The patient says she is doing well. It is noted that she continues to be in atrial fibrillation with a rather rapid ventricular response. She was seen in consultation by EP yesterday. They recommended continuing amiodarone. Her breathing is okay. OBJECTIVE: VITAL SIGNS: Temperature is 97.4, pulse 113, blood pressure 97/74, O2 saturation 98%. HEENT: Unremarkable. NECK: No JVD. LUNGS: Clear to auscultation. CARDIAC: S1, S2. Regular. ABDOMEN: Soft. EXTREMITIES: No profound edema. LABORATORY DATA: White blood cell count 8.9, hematocrit 40.5, and platelet count 244. Sodium 138, potassium 3.7, BUN 9, creatinine 0.6, glucose 233. Her chest x-ray shows improved bilateral pulmonary edema. ASSESSMENT: 1. Atrial fibrillation with high-output congestive heart failure. 2. Status post respiratory failure requiring mechanical ventilation. PLAN: This patient can be transferred out to the telemetry floor. The vancomycin can be stopped. Also, I suspect that the Zosyn could be stopped and switched to oral antibiotic and safer on fluid administration. She will continue diuresis. No further pulmonary recommendations at this time will be available as needed. Job ID: [id number]
--- NOTE | 2019-09-17 17:50 | PDOC.CPN ---
- Subjective Date: 09/17/19 Time: 17:48 Interval history: She is doing much better. Afib still present but breathing is almost back to normal. She continues to diurese well. - Review of Systems General: denies: fever/chills, weight/appetite/sleep changes, night sweats, fatigue Respiratory: reports: shortness of breath, exercise intolerance. denies: cough , congestion Cardiovascular: denies: chest pain, palpitation, edema, paroxysmal nocturnal dyspnea, orthopnea Gastrointestinal: denies: nausea, vomiting, diarrhea, constipation, abd pain, GI bleeding Musculoskeletal: denies: pain, tenderness, stiffness, swelling, arthritis/ arthralgias Neurological: denies: numbness, syncope, seizure, weakness - Objective Allergies/Adverse Reactions: Allergies Allergy/AdvReac Type Severity Reaction Status Date / Time ketorolac Allergy Verified 09/10/19 06:45 tramadol Allergy Verified 09/10/19 06:45 Visit Medications: Current Medications Acetaminophen (Tylenol) 650 mg PER TUBE Q6H PRN PRN Reason: Fever > 101 Last Admin: 09/17/19 10:04 Dose: 650 mg Albuterol Sulfate (Ventolin) 2.5 mg NEB [id number] [facility] Last Admin: 09/17/19 13:35 Dose: 2.5 mg Aspirin (Ecotrin) 81 mg PO DAILY [facility] Last Admin: 09/17/19 09:46 Dose: 81 mg Atorvastatin Calcium (Lipitor) 20 mg PO 2099 [facility] Last Admin: 09/16/19 20:45 Dose: 20 mg Bisacodyl (Dulcolax) 10 mg PO DAILYPRN PRN PRN Reason: Constipation Cefdinir (Omnicef) 600 mg PO DAILY [facility] Stop: 09/20/19 09:01 Clonazepam (Klonopin) 2 mg PO TID [facility] Last Admin: 09/17/19 14:43 Dose: Not Given Dextrose/Water (Dextrose 50%) 25 gm SLOW IVP PRN PRN PRN Reason: Hypoglycemia Digoxin (Lanoxin) 0.125 mg PO DAILY [facility] Last Admin: 09/17/19 09:46 Dose: 0.125 mg Enoxaparin Sodium (Lovenox) 60 mg SC 0900,2100 [facility] Last Admin: 09/17/19 09:47 Dose: 60 mg Furosemide (Lasix) 40 mg SLOW IVP DAILY [facility] Last Admin: 09/17/19 09:55 Dose: 40 mg Glucagon (Glucagon) 1 mg IM PRN PRN PRN Reason: Hypoglycemia Hydrocortisone Sodium Succinate (Solu-Cortef) 25 mg IVP BID PRECIOUS Dextrose/Water (D5w) 1,000 mls @ 0 mls/hr IV .Q0M PRN PRN Reason: Hypoglycemia Amiodarone HCl 450 mg/ (Dextrose/Water) 259 mls @ 0 mls/hr IVPB INF PRECIOUS; Protocol Last Admin: 09/16/19 23:54 Dose: 259 mls Fentanyl Citrate 2,000 mcg/ (Sodium Chloride) 100 mls @ 0 mls/hr IV INF PRECIOUS; Protocol Stop: 10/13/19 09:49 Last Admin: 09/15/19 00:23 Dose: 100 mls Insulin Human Lispro (Humalog) 0 units SC .MODERATE SLIDING SC PRN PRN Reason: Moderate Correctional Scale Last Admin: 09/17/19 16:41 Dose: 8 unit Lorazepam (Ativan) 2 mg SLOW IVP Q1H PRN PRN Reason: Breakthrough agitation Stop: 10/13/19 09:49 Last Admin: 09/14/19 02:24 Dose: 2 mg Melatonin (Melatonin) 3 mg PO HS PRN PRN Reason: Insomnia Miscellaneous Medication (Pharmacy To Dose) 1 each IVPB PRN PRN PRN Reason: Pharmacy VANCOMYCIN Miscellaneous Medication (Electrolyte Replacement Protocol) 0 each FS ASDIR PRN ; Protocol PRN Reason: ELECTROLYTE REPLACEMENT Morphine Sulfate (Morphine) 2 mg SLOW IVP Q1H PRN PRN Reason: BREAKTHROUGH PAIN/Agitation Stop: 10/13/19 09:49 Nicotine (Nicoderm Patch) 21 mg TD Q24HR [facility] Last Admin: 09/16/19 20:46 Dose: 21 mg Pantoprazole Sodium (Protonix) 40 mg PO BID [facility] Last Admin: 09/17/19 09:47 Dose: 40 mg Propofol (Diprivan) 1,000 mg IV INF PRN; Protocol PRN Reason: TO ACHIEVE GOAL RASS Stop: 10/13/19 09:49 Last Admin: 09/15/19 02:23 Dose: 1,000 mg Propofol (Diprivan Bolus) 20 mg IV Q5MIN PRN PRN Reason: BREAKTHROUGH AGITATION Stop: 10/13/19 09:49 Sodium Chloride (Flush - Normal Saline) 10 ml IVF Q12HR [facility] Last Admin: 09/17/19 09:55 Dose: 10 ml Sodium Chloride (Flush - Normal Saline) 10 ml IVF PRN PRN PRN Reason: Saline Flush Sterile Water (Bacteriostatic Water) 1 ml FS PRN PRN PRN Reason: RECONSTITUTION Ticagrelor (Brilinta) 90 mg PO BID [facility] Last Admin: 09/17/19 09:47 Dose: 90 mg Topiramate (Topamax) 200 mg PO DAILY [facility] Last Admin: 09/17/19 09:46 Dose: 200 mg Zolpidem Tartrate (Ambien) 5 mg PO HSPRN PRN PRN Reason: Insomnia Vital Signs & Weight: Vital Signs Temp Pulse Pulse Pulse Resp BP BP 09/17/19 13:35 101 H 20 09/17/19 12:00 09/17/19 11:31 97.3 F L 09/17/19 09:46 115 H 09/17/19 09:12 103 H 101 H 140/86 118/84 09/17/19 08:00 09/17/19 07:56 105 H 20 09/17/19 07:52 09/17/19 07:36 97.4 F L Pulse Ox Pulse Ox Pulse Ox 09/17/19 13:35 98 09/17/19 12:00 95 09/17/19 11:31 09/17/19 09:46 09/17/19 09:12 99 98 09/17/19 08:00 98 09/17/19 07:56 98 09/17/19 07:52 98 09/17/19 07:36 Admit Weight 146 lb 5 oz Weight 142 lb 8 oz - Physical Exam General: alert & oriented x3 HEENT: mucus membranes moist Neck: supple neck Cardiac: irregularly regular Lungs: decreased breath sounds Neuro: grossly intact Abdomen: active bowel sounds Extremities: no edema Skin: clear Musculoskeletal: no pain - Labs Result Diagrams: 09/17/19 03:26 09/17/19 03:26 Troponin/CKMB Troponin I 0.026 ng/mL (< 0.028) 09/09/19 19:56 - Telemetry Supraventricular conduction: atrial fibrillation - Assessment/Plan Assessment/Plan: 1. Afib RVR 2. Aflutter at first. 3. COPD, with exacerbation 4. Acute on chronic systolic heart failure 5. COVID-19 was ruled out. 6. Hypokalemia. Likely from diuresis. 7. Fever over the weekend. PLAN: - Continue IV diuresis - Continue amiodarone drip - Continue full dose lovenox. - Continue digoxin for rate control now. - Replace K to above 4.0 - Repeat Cardioversion if not converted.
[2019-09-17] MEDS: Atorvastatin Calcium 20 MG TAB PO SCH (20:48)
[2019-09-17] MEDS ORDERED: Hydrocortisone Sod Succ/PF 100 mg/2 ml Vial IVP SCH (21:00)
[2019-09-17] MEDS: Nicotine 21 MG PATCH TD SCH (21:24)
[2019-09-18] MEDS: Acetaminophen 325 MG TAB PER TUBE PRN ×4 (04:21→22:04)
[2019-09-18] MEDS: Amiodarone 450 MG in Dextrose 5% in Water 250 ML IVPB SCH (05:46)
[2019-09-18] MEDS: HumaLOG 300 UNITS/3 ML VIAL SC PRN ×2 (06:01→14:00)
[2019-09-18 06:04] LABS: Anion Gap 8 mmol/L (10-20); BUN (Urea Nitrogen) 10 mg/dL (9.8-20.1); Calc. Creatinine Clearance 100 mL/min (70-130); Calcium 8.6 mg/dL (7.8-10.44); Carbon Dioxide 31 mmol/L (22-29); Chloride 103 mmol/L (98-107); Estimated GFR-MDRD Greater than 90; Glucose 222 mg/dL (70-105); Potassium 3.2 mmol/L (3.5-5.1); Sodium 139 mmol/L (136-145)
[2019-09-18] MEDS: Albuterol Sulfate 2.5 mg/3 ml Neb NEB SCH ×3 (07:21→18:32)
[2019-09-18] MEDS: Enoxaparin Sodium 60 MG/0.6 ML SYRINGE SC SCH ×2 (07:43→21:58)
[2019-09-18] MEDS: clonazePAM 1 MG TAB PO SCH ×3 (07:44→21:57)
[2019-09-18] MEDS: Cefdinir 300 MG CAP PO SCH (07:44)
[2019-09-18] MEDS: Aspirin 81 mg Enteric Coated Tablet PO SCH (07:44)
[2019-09-18] MEDS: Digoxin 0.125 MG TAB PO SCH (07:44)
[2019-09-18] MEDS: Topiramate 100 MG TAB PO SCH (07:45)
[2019-09-18] MEDS: Hydrocortisone Sod Succ/PF 100 mg/2 ml Vial IVP SCH (07:45)
[2019-09-18] MEDS: Furosemide 40 MG/4 ML VIAL SLOW IVP SCH (07:45)
[2019-09-18] MEDS: TICAGRELOR 90 MG TABLET PO SCH ×2 (07:45→21:58)
--- NOTE | 2019-09-18 10:13 | PDOC.EP ---
- Subjective Date: 09/17/19 Time: 08:00 Interval History: Follow up for atrial fibrillation. Patient eating. Feels well and voices no complaints. Asymptomatic with mild RVR that persists with her AF - Review of Systems Constitutional: denies: chills, fever, malaise, sweats, weakness Respiratory: denies: cough, shortness of breath, wheezing Cardiology: denies: chest pain, heart racing, light headedness, palpitations, passing out Gastrointestinal: denies: abdominal pain, constipation, nausea, vomitting - Objective Allergies/Adverse Reactions: Allergies Allergy/AdvReac Type Severity Reaction Status Date / Time ketorolac Allergy Verified 09/10/19 06:45 tramadol Allergy Verified 09/10/19 06:45 Current Medications Acetaminophen (Tylenol) 650 mg PER TUBE Q6H PRN PRN Reason: Fever > 101 Last Admin: 09/18/19 04:21 Dose: 650 mg Albuterol Sulfate (Ventolin) 2.5 mg NEB [id number] [facility] Last Admin: 09/18/19 07:21 Dose: 2.5 mg Aspirin (Ecotrin) 81 mg PO DAILY [facility] Last Admin: 09/18/19 07:44 Dose: 81 mg Atorvastatin Calcium (Lipitor) 20 mg PO 2099 [facility] Last Admin: 09/17/19 20:48 Dose: 20 mg Bisacodyl (Dulcolax) 10 mg PO DAILYPRN PRN PRN Reason: Constipation Cefdinir (Omnicef) 600 mg PO DAILY [facility] Stop: 09/20/19 09:01 Last Admin: 09/18/19 07:44 Dose: 600 mg Clonazepam (Klonopin) 2 mg PO TID [facility] Last Admin: 09/18/19 07:44 Dose: 2 mg Dextrose/Water (Dextrose 50%) 25 gm SLOW IVP PRN PRN PRN Reason: Hypoglycemia Digoxin (Lanoxin) 0.125 mg PO DAILY [facility] Last Admin: 09/18/19 07:44 Dose: 0.125 mg Enoxaparin Sodium (Lovenox) 60 mg SC 0900,2099 [facility] Last Admin: 09/18/19 07:43 Dose: 60 mg Furosemide (Lasix) 40 mg SLOW IVP DAILY [facility] Last Admin: 09/18/19 07:45 Dose: 40 mg Glucagon (Glucagon) 1 mg IM PRN PRN PRN Reason: Hypoglycemia Hydrocortisone Sodium Succinate (Solu-Cortef) 25 mg IVP DAILY [facility] Last Admin: 09/18/19 07:45 Dose: 25 mg Dextrose/Water (D5w) 1,000 mls @ 0 mls/hr IV .Q0M PRN PRN Reason: Hypoglycemia Amiodarone HCl 450 mg/ (Dextrose/Water) 259 mls @ 0 mls/hr IVPB INF [facility]; Protocol Last Admin: 09/18/19 05:46 Dose: 259 mls Insulin Human Lispro (Humalog) 0 units SC .MODERATE SLIDING SC PRN PRN Reason: Moderate Correctional Scale Last Admin: 09/18/19 06:01 Dose: 4 unit Lorazepam (Ativan) 2 mg SLOW IVP Q1H PRN PRN Reason: Breakthrough agitation Stop: 10/13/19 09:49 Last Admin: 09/14/19 02:24 Dose: 2 mg Melatonin (Melatonin) 3 mg PO HS PRN PRN Reason: Insomnia Miscellaneous Medication (Pharmacy To Dose) 1 each IVPB PRN PRN PRN Reason: Pharmacy VANCOMYCIN Miscellaneous Medication (Electrolyte Replacement Protocol) 0 each FS ASDIR PRN ; Protocol PRN Reason: ELECTROLYTE REPLACEMENT Morphine Sulfate (Morphine) 2 mg SLOW IVP Q1H PRN PRN Reason: BREAKTHROUGH PAIN/Agitation Stop: 10/13/19 09:49 Nicotine (Nicoderm Patch) 21 mg TD Q24HR [facility] Last Admin: 09/17/19 21:24 Dose: 21 mg Pantoprazole Sodium (Protonix) 40 mg PO BID [facility] Last Admin: 09/18/19 07:45 Dose: 40 mg Propofol (Diprivan) 1,000 mg IV INF PRN; Protocol PRN Reason: TO ACHIEVE GOAL RASS Stop: 10/13/19 09:49 Last Admin: 09/15/19 02:23 Dose: 1,000 mg Propofol (Diprivan Bolus) 20 mg IV Q5MIN PRN PRN Reason: BREAKTHROUGH AGITATION Stop: 10/13/19 09:49 Sodium Chloride (Flush - Normal Saline) 10 ml IVF Q12HR [facility] Last Admin: 09/18/19 07:48 Dose: 10 ml Sodium Chloride (Flush - Normal Saline) 10 ml IVF PRN PRN PRN Reason: Saline Flush Sterile Water (Bacteriostatic Water) 1 ml FS PRN PRN PRN Reason: RECONSTITUTION Ticagrelor (Brilinta) 90 mg PO BID [facility] Last Admin: 09/18/19 07:45 Dose: 90 mg Topiramate (Topamax) 200 mg PO DAILY [facility] Last Admin: 09/18/19 07:45 Dose: 200 mg Zolpidem Tartrate (Ambien) 5 mg PO HSPRN PRN PRN Reason: Insomnia Vital Signs & Weight: Vital Signs Temp Pulse Resp BP Pulse Ox 09/18/19 07:36 98.6 F 88 32 H 123/78 100 09/18/19 07:21 95 16 09/18/19 04:00 98.5 F 116 H 16 123/66 96 09/18/19 00:00 127 H 16 117/67 97 09/17/19 23:29 96 Admit Weight 146 lb 5 oz Weight 142 lb 8 oz I/O: I/O 09/17/19 09/18/19 09/19/19 06:59 06:59 06:59 Intake Total 3072.4 800 Output Total 5545 4350 Balance -2497.6 -3550 - Quality Measures Condition: Atrial Fibrillation/Flutter (hx or current) - Physical Exam General: alert & oriented x3, appears well, no apparent distress, speech clear, affect appropriate HEENT: mucus membranes moist, normocephaly Neck: supple neck, midline trachea, no lymphadenopathy Cardiology: PMI nondisplaced, irregularly irregular, tachycardia Lungs: clear to auscultation, no wheeze, rales, rhonchi Neurology: cranial nerve 2-12 intact, grossly intact, no lateralizing findings - Chadsvasc Risk factors Hypertension: 1 Vascular disease: 1 Female: 1 Risk Score: 3 - Labs Result Diagrams: 09/17/19 03:26 09/18/19 04:31 - EKG Interpretation EKG Method: Telemetry EKG shows: Atrial fibrillation - Assessment/Plan Assessment/Plan: 1. Atrial arrhythmias - coarse AF and atypical flutter. - amiodarone gtt - mild RVR persists 90-120bpm by tele trends 2. CAD hx; LCX- non revascularizable 3. PVD 4. BPD 5. Schizophrenia So far her telemetry and EKGs suggest atypical atrial flutter and AFib, but not CTI dependent flutter. OAC has been initiated which is recommneded halfway. She remains on amiodarone gtt. I would expect her to be able to transition to PO amio tomorrow but for now her RVR persists. She is a poor candidate for PVAI.If she is able to show take OAC faithfully she may be a candidate for PVAI in the future but she is high risk for non compliance with medications which can result in post ablation stroke. Medical management is her best option at this time. She may require repeat CV if she does not chemically convert.
--- NOTE | 2019-09-18 12:12 | PRG ---
DATE OF SERVICE: 09/18/2019 SUBJECTIVE: The patient is doing well. No complaints. Remains on amiodarone drip. OBJECTIVE: VITAL SIGNS: Temperature 98.6, pulse 88, respirations 30, O2 saturation 100% on room air. HEENT: Unremarkable. LUNGS: Clear. ABDOMEN: Soft. CARDIAC: S1 and S2. Irregular. LABORATORY DATA: Sodium 139, potassium 3.2, BUN 10, creatinine 0.6, and glucose 222. ASSESSMENT: 1. Atrial fibrillation/atrial flutter. 2. Status post respiratory failure. PLAN: Main issues now are cardiac in concern. No further recommendations. We will sign off. Job ID: [id number]
--- NOTE | 2019-09-18 13:38 | RAD ---
RADIOGRAPH CHEST 1 VIEW: Date: 09/18/2019. Time: 1:10 p.m. HISTORY: A 58-year-old female for followup pleural effusions. COMPARISON: 09/17/2019. FINDINGS: Mild pulmonary interstitial edema has slightly improved. Airspace densities at the bilateral lung ba ses have slightly improved. Small bilateral pleural effusions remain. No pneumothorax. IMPRESSION: 1. Mild interval improvement in the mild pulmonary interstitial edema. 2. Interval improvement in aeration at the lung bases. 3. No interval change in the small bilateral pleural effusions. JN [] POS: [facility]
--- NOTE | 2019-09-18 13:48 | PDOC.HOSPP ---
- Subjective Encounter Date: 09/18/19 Encounter Time: 08:00 Subjective: The patient is on room air. Denies chest pain or SOB. Her heart rate is still 123 in atrial flutter. She remains on amiodarone drip - Objective Vital Signs & Weight: Vital Signs (12 hours) Temp Pulse Resp BP Pulse Ox 09/18/19 11:20 98.0 F 60 18 114/77 95 09/18/19 07:36 98.6 F 88 32 H 123/78 100 09/18/19 07:21 95 16 09/18/19 04:00 98.5 F 116 H 16 123/66 96 Weight Admit Weight 146 lb 5 oz Weight 142 lb 8 oz Most Recent Monitor Data Heart Rate from ECG 121 NIBP 119/84 NIBP BP-Mean 95 Respiration from ECG 22 SpO2 98 I&O: 09/17/19 09/18/19 09/19/19 06:59 06:59 06:59 Intake Total 3072.4 800 Output Total 5525 4350 Balance -2497.6 -1970 Result Diagrams: 09/17/19 03:26 09/18/19 04:31 Additional Labs: Accuchecks 09/18/19 09/18/19 09/17/19 10:54 05:58 20:22 POC Glucose 263 H 210 H 211 H 09/17/19 16:33 POC Glucose 342 H Hospitalist ROS - Review of Systems Constitutional: denies: fever, chills - Medication Medications: Active Medications Generic Name Dose Route Start Last Admin Trade Name Freq PRN Reason Stop Dose Admin Acetaminophen 650 mg 09/14/19 07:34 09/18/19 10:13 Tylenol PER TUBE 650 mg Q6H PRN Administration Fever > 101 Albuterol Sulfate 2.5 mg 09/14/19 01:00 09/18/19 07:21 Ventolin NEB 2.5 mg [id number] [facility] Administration Aspirin 81 mg 09/11/19 09:00 09/18/19 07:44 Ecotrin PO 81 mg DAILY [facility] Administration Atorvastatin Calcium 20 mg 09/12/19 21:00 09/17/19 20:48 Lipitor PO 20 mg 2100 [facility] Administration Cefdinir 600 mg 09/18/19 09:00 09/18/19 07:44 Omnicef PO 09/20/19 09:01 600 mg DAILY [facility] Administration Clonazepam 2 mg 09/15/19 21:00 09/18/19 07:44 Klonopin PO 2 mg TID [facility] Administration Digoxin 0.125 mg 09/12/19 09:00 09/18/19 07:44 Lanoxin PO 0.125 mg DAILY [facility] Administration Enoxaparin Sodium 60 mg 09/17/19 09:00 09/18/19 07:43 Lovenox SC 60 mg 0900,2100 [facility] Administration Hydrocortisone Sodium Succinate 25 mg 09/18/19 09:00 09/18/19 07:45 Solu-Cortef IVP 25 mg DAILY [facility] Administration Insulin Human Lispro 0 units 09/13/19 20:04 09/18/19 06:01 Humalog SC 4 unit .MODERATE SLIDING SC PRN Administration Moderate Correctional Scale Lorazepam 2 mg 09/13/19 09:49 09/14/19 02:24 Ativan SLOW IVP 10/13/19 09:49 2 mg Q1H PRN Administration Breakthrough agitation Nicotine 21 mg 09/09/19 21:00 09/17/19 21:24 Nicoderm Patch TD 21 mg Q24HR [facility] Administration Pantoprazole Sodium 40 mg 09/15/19 21:00 09/18/19 07:45 Protonix PO 40 mg BID [facility] Administration Propofol 1,000 mg 09/13/19 09:49 09/15/19 02:23 Diprivan IV 10/13/19 09:49 1,000 mg INF PRN Administration TO ACHIEVE GOAL RASS Protocol Sodium Chloride 10 ml 09/10/19 21:00 09/18/19 07:48 Flush - Normal Saline IVF 10 ml Q12HR [facility] Administration Ticagrelor 90 mg 09/16/19 21:00 09/18/19 07:45 Brilinta PO 90 mg BID [facility] Administration Topiramate 200 mg 09/11/19 09:00 09/18/19 07:45 Topamax PO 200 mg DAILY [facility] Administration - Exam General Appearance: NAD, awake alert Eye: PERRL, anicteric sclera ENT: normocephalic atraumatic, no oropharyngeal lesions Neck: supple, no JVD Heart: no murmur, no gallops, irregular Respiratory: CTAB, no wheezes, no rales, no ronchi Gastrointestinal: soft, non-tender, non-distended, normal bowel sounds, no hepatomegaly Extremities: no cyanosis, no clubbing, no edema Skin: normal turgor, no lesions, no rashes Neurological: cranial nerve grossly intact, normal sensation to touch, no focal deficits, no new deficit Hosp A/P - Plan ECHO: moderate to severe AR. Moderate aortic insufficiency Chest X ray 09/14: stable multifocal infiltrates, small right pleural effusion Chest X ray 09/15: persistent bilateral pneumonia, small pleural effusions Chest X ray 09/16: improved bilateral airspace disease THis is a 58 year old female who initially presented with acute encephalopathy. She developed respiratory failure and aflutter with RVR requiring BIPAP. Subsequently had episode of unresponsiveness after pulling off BIPAP and required intubation Acute hypoxic respiratory failure secondary to severe sepsis from pneumonia vs heart failure - patient is s/p extubation 09/15. Chest Xray 09/13 showed multifocal infiltrates , repeat on shows improvement - received vancomycin and zosyn from 09/13 to 09/16. Started on diuresis with IV lasix and patient has now been weaned off oxygen - switch to oral lasix 40 mg. Pulsamuel has signed off Atrial fibrillation/Aflutter - on amiodarone drip for now by cardiology, heart rate is still 123 - s/p cardioversion 09/12. Continue brilinta - plan for possible repeat cardioversion later this week Hypotension -wean hydrocortisone to 25 mg IV daily Moderate to severe MR - noted on ECHO, will monitor. Cardiology is following, will monitor for edema Hypokalemia - resolved Dispo: pending adequate control of heart rate Code status: full code
--- NOTE | 2019-09-18 17:34 | PDOC.CPN ---
- Subjective Date: 09/18/19 Time: 17:33 Interval history: No new issues. Back to baseline. Remains in afib. - Review of Systems General: denies: fever/chills, weight/appetite/sleep changes, night sweats, fatigue Respiratory: denies: cough, congestion, shortness of breath, exercise intolerance Cardiovascular: denies: chest pain, palpitation, edema, paroxysmal nocturnal dyspnea, orthopnea Gastrointestinal: denies: nausea, vomiting, diarrhea, constipation, abd pain, GI bleeding Musculoskeletal: denies: pain, tenderness, stiffness, swelling, arthritis/ arthralgias Neurological: denies: numbness, syncope, seizure, weakness - Objective Allergies/Adverse Reactions: Allergies Allergy/AdvReac Type Severity Reaction Status Date / Time ketorolac Allergy Verified 09/10/19 06:45 tramadol Allergy Verified 09/10/19 06:45 Visit Medications: Current Medications Acetaminophen (Tylenol) 650 mg PER TUBE Q6H PRN PRN Reason: Fever > 101 Last Admin: 09/18/19 15:55 Dose: 650 mg Albuterol Sulfate (Ventolin) 2.5 mg NEB [id number] [facility] Last Admin: 09/18/19 14:23 Dose: 2.5 mg Amiodarone HCl (Cordarone) 400 mg PO BID [facility] Aspirin (Ecotrin) 81 mg PO DAILY [facility] Last Admin: 09/18/19 07:44 Dose: 81 mg Atorvastatin Calcium (Lipitor) 20 mg PO 2099 [facility] Last Admin: 09/17/19 20:48 Dose: 20 mg Bisacodyl (Dulcolax) 10 mg PO DAILYPRN PRN PRN Reason: Constipation Cefdinir (Omnicef) 600 mg PO DAILY [facility] Stop: 09/20/19 09:01 Last Admin: 09/18/19 07:44 Dose: 600 mg Clonazepam (Klonopin) 2 mg PO TID [facility] Last Admin: 09/18/19 13:59 Dose: 2 mg Dextrose/Water (Dextrose 50%) 25 gm SLOW IVP PRN PRN PRN Reason: Hypoglycemia Digoxin (Lanoxin) 0.125 mg PO DAILY [facility] Last Admin: 09/18/19 07:44 Dose: 0.125 mg Enoxaparin Sodium (Lovenox) 60 mg SC 0900,2100 [facility] Last Admin: 09/18/19 07:43 Dose: 60 mg Furosemide (Lasix) 40 mg PO DAILY-AC [facility] Glucagon (Glucagon) 1 mg IM PRN PRN PRN Reason: Hypoglycemia Hydrocortisone Sodium Succinate (Solu-Cortef) 25 mg IVP DAILY [facility] Last Admin: 09/18/19 07:45 Dose: 25 mg Dextrose/Water (D5w) 1,000 mls @ 0 mls/hr IV .Q0M PRN PRN Reason: Hypoglycemia Insulin Human Lispro (Humalog) 0 units SC .MODERATE SLIDING SC PRN PRN Reason: Moderate Correctional Scale Last Admin: 09/18/19 14:00 Dose: 6 unit Lorazepam (Ativan) 2 mg SLOW IVP Q1H PRN PRN Reason: Breakthrough agitation Stop: 10/13/19 09:49 Last Admin: 09/14/19 02:24 Dose: 2 mg Melatonin (Melatonin) 3 mg PO HS PRN PRN Reason: Insomnia Miscellaneous Medication (Pharmacy To Dose) 1 each IVPB PRN PRN PRN Reason: Pharmacy VANCOMYCIN Nicotine (Nicoderm Patch) 21 mg TD Q24HR [facility] Last Admin: 09/17/19 21:24 Dose: 21 mg Pantoprazole Sodium (Protonix) 40 mg PO BID [facility] Last Admin: 09/18/19 07:45 Dose: 40 mg Propofol (Diprivan) 1,000 mg IV INF PRN; Protocol PRN Reason: TO ACHIEVE GOAL RASS Stop: 10/13/19 09:49 Last Admin: 09/15/19 02:23 Dose: 1,000 mg Sodium Chloride (Flush - Normal Saline) 10 ml IVF Q12HR [facility] Last Admin: 09/18/19 07:48 Dose: 10 ml Sodium Chloride (Flush - Normal Saline) 10 ml IVF PRN PRN PRN Reason: Saline Flush Sterile Water (Bacteriostatic Water) 1 ml FS PRN PRN PRN Reason: RECONSTITUTION Ticagrelor (Brilinta) 90 mg PO BID [facility] Last Admin: 09/18/19 07:45 Dose: 90 mg Topiramate (Topamax) 200 mg PO DAILY [facility] Last Admin: 09/18/19 07:45 Dose: 200 mg Zolpidem Tartrate (Ambien) 5 mg PO HSPRN PRN PRN Reason: Insomnia Vital Signs & Weight: Vital Signs Temp Pulse Pulse Pulse Resp BP BP 09/18/19 15:36 98.4 F 114 H 17 09/18/19 14:23 105 H 20 09/18/19 13:33 115 H 111 H 137/97 H 135/95 H 09/18/19 11:20 98.0 F 60 18 09/18/19 07:36 98.6 F 88 32 H 09/18/19 07:21 95 16 BP BP Pulse Ox 09/18/19 15:36 117/87 99 09/18/19 14:23 92 L 09/18/19 13:33 09/18/19 11:20 114/77 95 09/18/19 07:36 123/78 100 09/18/19 07:21 Admit Weight 146 lb 5 oz Weight 142 lb 8 oz - Physical Exam General: alert & oriented x3 HEENT: mucus membranes moist Neck: supple neck Cardiac: irregularly regular Lungs: decreased breath sounds Neuro: grossly intact Abdomen: active bowel sounds Extremities: no edema Skin: clear Musculoskeletal: no pain - Labs Result Diagrams: 09/17/19 03:26 09/18/19 04:31 Troponin/CKMB Troponin I 0.026 ng/mL (< 0.028) 09/09/19 19:56 - Telemetry Supraventricular conduction: atrial fibrillation - Assessment/Plan Assessment/Plan: 1. Afib RVR 2. Aflutter at first. 3. COPD, with exacerbation 4. Acute on chronic systolic heart failure 5. COVID-19 was ruled out. 6. Hypokalemia. Likely from diuresis. 7. Fever over the weekend. PLAN: - Continue IV diuresis - Continue amiodarone drip - Continue full dose lovenox. - Continue digoxin for rate control now. - Replace K to above 4.0 - Repeat Cardioversion only tomorrow. - Will need Eliquis on discharge.
[2019-09-18] MEDS ORDERED: Diltiazem HCl 125 MG, Admixture Fee 1 EACH in Sodium Chloride 0.9% 100 ML IVPB SCH (21:00)
[2019-09-18] MEDS: Nicotine 21 MG PATCH TD SCH (21:56)
[2019-09-18] MEDS: Atorvastatin Calcium 20 MG TAB PO SCH (21:57)
[2019-09-18] MEDS: Amiodarone 200 MG TAB PO SCH (21:57)
[2019-09-19] MEDS: Acetaminophen 325 MG TAB PER TUBE PRN ×3 (03:32→18:22)
[2019-09-19 04:59] LABS: Hemoglobin 13.5 g/dL (12.0-16.0); Mean Corpuscular HGB CONC 32.8 g/dL (32.0-36.0); Mean Corpuscular Hemoglobin 31.6 pg (27.0-31.0); Mean Corpuscular Volume 96.5 fL (78.0-98.0); Mean Platelet Volume 7.2 fL (7.4-10.4); Platelet Count 341 thou/uL (130-400); RBC Distribution Width 13.2 % (11.5-14.5); Red Blood Cell (RBC) Count 4.26 mill/uL (4.20-5.40); White Blood Cell (WBC) Count 10.8 thou/uL (4.8-10.8)
[2019-09-19 05:22] LABS: Anion Gap 13 mmol/L (10-20); BUN (Urea Nitrogen) 11 mg/dL (9.8-20.1); Calc. Creatinine Clearance 97 mL/min (70-130); Calcium 9.2 mg/dL (7.8-10.44); Carbon Dioxide 26 mmol/L (22-29); Chloride 105 mmol/L (98-107); Estimated GFR-MDRD Greater than 90; Glucose 183 mg/dL (70-105); Potassium 3.9 mmol/L (3.5-5.1); Sodium 140 mmol/L (136-145)
--- NOTE | 2019-09-19 06:16 | PRG ---
DATE OF SERVICE: 09/18/2019 Dictated by Stephenie Devine, nurse practitioner, as a scribe for Dr. Justo Bcek. TIME OF EXAM: 8 a.m. REASON FOR FOLLOWUP: Atrial fibrillation management. SUBJECTIVE: Ms. Hall is feeling well today. She is breathing easier and is largely asymptomatic with her ongoing atrial fibrillation. She is eating well. She denies any heart racing, palpitations, chest pain, pressure, syncope, near syncope, stroke, or stroke-like symptoms. No obvious bleeding dyscrasias with Lovenox injection. An 8-point review of systems was negative. OBJECTIVE: VITAL SIGNS: Pulse 88, blood pressure 123/78, respirations 16, and oxygen 100% on room air, temperature 98.6. GENERAL: The patient is alert and oriented. Speech is clear. Affect is appropriate. She is in no apparent distress. Resting comfortably in bed. NECK: Supple without jugular venous distention. HEART: Irregularly irregular. Slightly tachycardic. LUNGS: Clear to auscultation bilaterally. ABDOMEN: Soft, nontender without palpable masses. EXTREMITIES: Warm and dry to touch and well perfused. No clubbing, cyanosis, or edema. NEUROLOGIC: Grossly intact. Nonfocal. Telemetry and EKG shows ongoing atrial fibrillation. Amiodarone drip remains in place. LABORATORY DATA: Hematology yesterday. WBC 8.9, platelet count 244. Chemistry from this morning, potassium 3.2, creatinine 0.62. Potassium replaced, but not be checked. IMPRESSION: 1. Atrial arrhythmia. 2. Recent respiratory failure. 3. Hypokalemia. 4. Bipolar disorder and schizophrenia. PLAN AND RECOMMENDATIONS: Ms. Hall has persistent atrial fibrillation with amiodarone. Her heart rates are better controlled today than previously seen as her amiodarone continues to load via IV. I will transition her off IV onto the oral loading at 400 mg b.i.d. for now. She will require long-term anticoagulation. She can be transitioned to Eliquis 5 mg b.i.d., if no surgical interventions are planned. My recommendation is for medical management for her atrial arrhythmias. Cardioversion tomorrow with Cardiology is planned, if she does not chemically convert on amiodarone. She has not been seen to have EKG tracing suggestive of right-sided atrial flutter. She is a poor candidate for PVAI at this time. If she can show compliance and consistency with staying on Eliquis, an anticoagulation, this could be a consideration in the future; however, for now, I would recommend cardioversion and continued medication management. Job ID: [id number]
[2019-09-19] MEDS: Albuterol Sulfate 2.5 mg/3 ml Neb NEB SCH ×4 (07:40→18:13)
--- NOTE | 2019-09-19 07:51 | EKG ---
Test Reason : Blood Pressure : / mmHG Vent. Rate : 125 BPM Atrial Rate : 312 BPM P-R Int : 000 ms QRS Dur : 092 ms QT Int : 288 ms P-R-T Axes : 000 071 251 degrees QTc Int : 415 ms Atrial fibrillation with rapid ventricular response with premature ventricular or aberrantly conducte d complexes Abnormal ECG When compared with ECG of 11-SEP-2019 22:07, Previous ECG has undetermined rhythm, needs review Criteria for Septal infarct are no longer Present Non-specific change in ST segment in Inferior leads T wave inversion now evident in Lateral leads Confirmed by DR. Ana SANTIAGO ([id number]) on 09/19/2019 7:51:33 AM Referred By: TYSON Confirmed By:DR. Ana SANTIAGO
[2019-09-19] MEDS: Cefdinir 300 MG CAP PO SCH (08:01)
[2019-09-19] MEDS: Topiramate 100 MG TAB PO SCH (08:02)
[2019-09-19] MEDS: clonazePAM 1 MG TAB PO SCH ×3 (08:02→21:26)
[2019-09-19] MEDS: TICAGRELOR 90 MG TABLET PO SCH (08:02)
[2019-09-19] MEDS: Digoxin 0.125 MG TAB PO SCH (08:02)
[2019-09-19] MEDS: Furosemide 40 MG TAB PO SCH (08:02)
[2019-09-19] MEDS: Amiodarone 200 MG TAB PO SCH ×2 (08:02→21:26)
[2019-09-19] MEDS: Aspirin 81 mg Enteric Coated Tablet PO SCH (08:03)
[2019-09-19] MEDS: Enoxaparin Sodium 60 MG/0.6 ML SYRINGE SC SCH (08:03)
[2019-09-19] MEDS: Hydrocortisone Sod Succ/PF 100 mg/2 ml Vial IVP SCH (08:03)
[2019-09-19] MEDS ORDERED: PROPOFOL 20 ML ONE (09:40)
[2019-09-19] MEDS ORDERED: PROPOFOL 200 MG/20 ML VIAL ONE (11:12)
[2019-09-19] MEDS: HumaLOG 300 UNITS/3 ML VIAL SC PRN ×2 (12:24→18:22)
[2019-09-19 13:13] VITALS: BMI 22.8
--- NOTE | 2019-09-19 17:26 | CCLSPC ---
PREPROCEDURE DIAGNOSIS: Atrial fibrillation. PROCEDURE: Direct current synchronized cardioversion. SUMMARY: Ms. Hall is a pleasant 58-year-old white female, who comes to the procedure area for planned cardioversion. She has been on full anticoagulation and had previously had a ALTAF, ruling out any intracardiac thrombus. She was put to sleep by the Anesthesiology Department. Please see their notes for details. After adequate sedation was achieved, one single AICD shock was delivered in a synchronized fashion at 100 joules, successfully converting her from atrial fibrillation into sinus rhythm. RECOMMENDATIONS: 1. Continue full anticoagulation with Eliquis 5 mg twice a day. 2. Continue amiodarone loading at 400 mg twice a day for the next seven days and then 200 mg daily. 3. May be discharged home tomorrow. Job ID: [id number]
--- NOTE | 2019-09-19 18:54 | PDOC.HOSPP ---
- Subjective Encounter Date: 09/19/19 Encounter Time: 18:53 Subjective: f/u: afib The patient was noted to be persistently tachycardic. She is s/p cardioversion today. She is off oxygen. She has no chest pain or SOB. She is up in bed eating - Objective Vital Signs & Weight: Vital Signs (12 hours) Temp Pulse Resp BP Pulse Ox 09/19/19 15:25 99.1 F 85 16 115/66 98 09/19/19 13:33 71 18 98 09/19/19 11:30 98.0 F 76 15 99/56 L 94 L 09/19/19 07:50 99.4 F 94 20 116/69 96 Weight Admit Weight 146 lb 5 oz Weight 137 lb 9 oz Most Recent Monitor Data Heart Rate from ECG 121 NIBP 119/84 NIBP BP-Mean 95 Respiration from ECG 22 SpO2 98 I&O: 09/18/19 09/19/19 09/20/19 06:59 06:59 06:59 Intake Total 800 1725 Output Total 4350 3475 Balance -3550 -1750 Result Diagrams: 09/19/19 04:40 09/19/19 04:40 Additional Labs: Accuchecks 09/19/19 09/19/19 09/19/19 16:39 12:28 06:12 POC Glucose 179 H 212 H 186 H 09/18/19 20:14 POC Glucose 273 H Hospitalist ROS - Review of Systems Constitutional: denies: fever, chills - Medication Medications: Active Medications Generic Name Dose Route Start Last Admin Trade Name Freq PRN Reason Stop Dose Admin Acetaminophen 650 mg 09/14/19 07:34 09/19/19 18:22 Tylenol PER TUBE 650 mg Q6H PRN Administration Fever > 101 Albuterol Sulfate 2.5 mg 09/14/19 01:00 09/19/19 18:13 Ventolin NEB Not Given [id number] PRECIOUS Amiodarone HCl 400 mg 09/18/19 21:00 09/19/19 08:02 Cordarone PO 400 mg BID PRECIOUS Administration Aspirin 81 mg 09/11/19 09:00 09/19/19 08:03 Ecotrin PO 81 mg DAILY PRECIOUS Administration Atorvastatin Calcium 20 mg 09/12/19 21:00 09/18/19 21:57 Lipitor PO 20 mg 2100 PRECIOUS Administration Cefdinir 600 mg 09/18/19 09:00 09/19/19 08:01 Omnicef PO 09/20/19 09:01 600 mg DAILY PRECIOUS Administration Clonazepam 2 mg 09/15/19 21:00 09/19/19 15:22 Klonopin PO 2 mg TID PRECIOUS Administration Digoxin 0.125 mg 09/12/19 09:00 09/19/19 08:02 Lanoxin PO 0.125 mg DAILY PRECIOUS Administration Furosemide 40 mg 09/19/19 07:30 09/19/19 08:02 Lasix PO 40 mg DAILY-AC PRCEIOUS Administration Hydrocortisone Sodium Succinate 25 mg 09/18/19 09:00 09/19/19 08:03 Solu-Cortef IVP 25 mg DAILY PRECIOUS Administration Insulin Human Lispro 0 units 09/13/19 20:04 09/19/19 18:22 Humalog SC 2 unit .MODERATE SLIDING SC PRN Administration Moderate Correctional Scale Lorazepam 2 mg 09/13/19 09:49 09/14/19 02:24 Ativan SLOW IVP 10/13/19 09:49 2 mg Q1H PRN Administration Breakthrough agitation Nicotine 21 mg 09/09/19 21:00 09/18/19 21:56 Nicoderm Patch TD 21 mg Q24HR PRECIOUS Administration Pantoprazole Sodium 40 mg 09/15/19 21:00 09/19/19 08:02 Protonix PO 40 mg BID PRECIOUS Administration Propofol 1,000 mg 09/13/19 09:49 09/15/19 02:23 Diprivan IV 10/13/19 09:49 1,000 mg INF PRN Administration TO ACHIEVE GOAL RASS Protocol Sodium Chloride 10 ml 09/10/19 21:00 09/19/19 08:07 Flush - Normal Saline IVF 10 ml Q12HR PRECIOUS Administration Topiramate 200 mg 09/11/19 09:00 09/19/19 08:02 Topamax PO 200 mg DAILY PRECIOUS Administration - Exam General Appearance: NAD, awake alert Eye: PERRL, anicteric sclera ENT: normocephalic atraumatic, no oropharyngeal lesions Neck: supple, no JVD Heart: RRR, no murmur, no gallops, no rubs Respiratory: CTAB, no wheezes, no rales, no ronchi Gastrointestinal: soft, non-tender, non-distended, normal bowel sounds Extremities: no cyanosis, no clubbing, no edema Skin: normal turgor, no lesions, no rashes Neurological: cranial nerve grossly intact, normal sensation to touch, no focal deficits, no new deficit Hosp A/P - Plan ECHO: moderate to severe AR. Moderate aortic insufficiency Chest X ray 09/14: stable multifocal infiltrates, small right pleural effusion Chest X ray 09/15: persistent bilateral pneumonia, small pleural effusions Chest X ray 09/16: improved bilateral airspace disease THis is a 58 year old female who initially presented with acute encephalopathy. She developed respiratory failure and aflutter with RVR requiring BIPAP. Subsequently had episode of unresponsiveness after pulling off BIPAP and required intubation Acute hypoxic respiratory failure secondary to severe sepsis from pneumonia vs heart failure - patient is s/p extubation 09/15. Chest Xray 09/13 showed multifocal infiltrates , repeat on shows improvement - received vancomycin and zosyn from 09/13 to 09/16, then discontinued. Continue with oral cefdinir - was diuresed with IV lasix, now on oral lasix 40 mg Atrial fibrillation/Aflutter - s/p cardioversion 09/12 and repeat cardioversion 09/18 Hypotension -will discontinue hydrocortisone Moderate to severe MR - noted on ECHO, will monitor. Cardiology is following, will monitor for edema Hypokalemia - resolved Dispo: d/c home likely tomorrow Code status: full code
[2019-09-19] MEDS: Apixaban 5 MG TAB PO SCH (21:26)
[2019-09-19] MEDS: Nicotine 21 MG PATCH TD SCH (21:26)
[2019-09-19] MEDS: Atorvastatin Calcium 20 MG TAB PO SCH (21:26)
[2019-09-20] MEDS: Albuterol Sulfate 2.5 mg/3 ml Neb NEB SCH ×3 (00:04→13:04)
[2019-09-20] MEDS: Acetaminophen 325 MG TAB PER TUBE PRN (00:10)
[2019-09-20 04:10] LABS: Mean Corpuscular HGB CONC 32.3 g/dL (32.0-36.0); Mean Corpuscular Hemoglobin 31.6 pg (27.0-31.0); Mean Corpuscular Volume 98.1 fL (78.0-98.0); Mean Platelet Volume 6.9 fL (7.4-10.4); Platelet Count 302 thou/uL (130-400); RBC Distribution Width 13.4 % (11.5-14.5); Red Blood Cell (RBC) Count 3.81 mill/uL (4.20-5.40); White Blood Cell (WBC) Count 11.6 thou/uL (4.8-10.8)
[2019-09-20] MEDS: Amiodarone 200 MG TAB PO SCH (08:08)
[2019-09-20] MEDS: Apixaban 5 MG TAB PO SCH (08:08)
[2019-09-20] MEDS: Furosemide 40 MG TAB PO SCH (08:08)
[2019-09-20] MEDS: Digoxin 0.125 MG TAB PO SCH (08:09)
[2019-09-20] MEDS: clonazePAM 1 MG TAB PO SCH (08:09)
[2019-09-20] MEDS: Topiramate 100 MG TAB PO SCH (08:09)
[2019-09-20] MEDS: Cefdinir 300 MG CAP PO SCH (08:09)
[2019-09-20] MEDS: Aspirin 81 mg Enteric Coated Tablet PO SCH (08:09)
[2019-09-20] MEDS ORDERED: Clopidogrel Bisulfate 75 MG TAB PO SCH (09:00)
[2019-09-20 11:41] LABS: Hemoglobin 12.2 g/dL (12.0-16.0); Mean Corpuscular HGB CONC 31.8 g/dL (32.0-36.0); Mean Corpuscular Hemoglobin 31.3 pg (27.0-31.0); Mean Corpuscular Volume 98.3 fL (78.0-98.0); Mean Platelet Volume 6.6 fL (7.4-10.4); Platelet Count 321 thou/uL (130-400); RBC Distribution Width 13.4 % (11.5-14.5); White Blood Cell (WBC) Count 12.1 thou/uL (4.8-10.8)
--- NOTE | 2019-09-20 13:04 | PDOC.EP ---
- Subjective Date: 09/19/19 Time: 08:00 Interval History: persistent AF s/p amiodarone loading and planned for CV later today. NPO for CV today. + sob and fatigue - Objective Allergies/Adverse Reactions: Allergies Allergy/AdvReac Type Severity Reaction Status Date / Time ketorolac Allergy Verified 09/10/19 06:45 tramadol Allergy Verified 09/10/19 06:45 Current Medications Acetaminophen (Tylenol) 650 mg PER TUBE Q6H PRN PRN Reason: Fever > 101 Last Admin: 09/20/19 00:10 Dose: 650 mg Albuterol Sulfate (Ventolin) 2.5 mg NEB [id number] [facility] Last Admin: 09/20/19 07:00 Dose: 2.5 mg Amiodarone HCl (Cordarone) 400 mg PO BID [facility] Last Admin: 09/20/19 08:08 Dose: 400 mg Apixaban (Eliquis) 5 mg PO BID [facility] Last Admin: 09/20/19 08:08 Dose: 5 mg Aspirin (Ecotrin) 81 mg PO DAILY [facility] Last Admin: 09/20/19 08:09 Dose: 81 mg Atorvastatin Calcium (Lipitor) 20 mg PO 2100 [facility] Last Admin: 09/19/19 21:26 Dose: 20 mg Bisacodyl (Dulcolax) 10 mg PO DAILYPRN PRN PRN Reason: Constipation Clonazepam (Klonopin) 2 mg PO TID [facility] Last Admin: 09/20/19 08:09 Dose: 2 mg Clopidogrel Bisulfate (Plavix) 75 mg PO DAILY [facility] Last Admin: 09/20/19 08:09 Dose: 75 mg Dextrose/Water (Dextrose 50%) 25 gm SLOW IVP PRN PRN PRN Reason: Hypoglycemia Digoxin (Lanoxin) 0.125 mg PO DAILY [facility] Last Admin: 09/20/19 08:09 Dose: 0.125 mg Furosemide (Lasix) 40 mg PO DAILY-AC [facility] Last Admin: 09/20/19 08:08 Dose: 40 mg Glucagon (Glucagon) 1 mg IM PRN PRN PRN Reason: Hypoglycemia Dextrose/Water (D5w) 1,000 mls @ 0 mls/hr IV .Q0M PRN PRN Reason: Hypoglycemia Insulin Human Lispro (Humalog) 0 units SC .MODERATE SLIDING SC PRN PRN Reason: Moderate Correctional Scale Last Admin: 09/19/19 18:22 Dose: 2 unit Lorazepam (Ativan) 2 mg SLOW IVP Q1H PRN PRN Reason: Breakthrough agitation Stop: 10/13/19 09:49 Last Admin: 09/14/19 02:24 Dose: 2 mg Melatonin (Melatonin) 3 mg PO HS PRN PRN Reason: Insomnia Nicotine (Nicoderm Patch) 21 mg TD Q24HR [facility] Last Admin: 09/19/19 21:26 Dose: 21 mg Pantoprazole Sodium (Protonix) 40 mg PO BID [facility] Last Admin: 09/20/19 08:09 Dose: 40 mg Propofol (Diprivan) 1,000 mg IV INF PRN; Protocol PRN Reason: TO ACHIEVE GOAL RASS Stop: 10/13/19 09:49 Last Admin: 09/15/19 02:23 Dose: 1,000 mg Sodium Chloride (Flush - Normal Saline) 10 ml IVF Q12HR [facility] Last Admin: 09/20/19 08:15 Dose: 10 ml Sodium Chloride (Flush - Normal Saline) 10 ml IVF PRN PRN PRN Reason: Saline Flush Sterile Water (Bacteriostatic Water) 1 ml FS PRN PRN PRN Reason: RECONSTITUTION Topiramate (Topamax) 200 mg PO DAILY [facility] Last Admin: 09/20/19 08:09 Dose: 200 mg Zolpidem Tartrate (Ambien) 5 mg PO HSPRN PRN PRN Reason: Insomnia Vital Signs & Weight: Vital Signs Temp Pulse Resp BP Pulse Ox 09/20/19 08:09 65 09/20/19 07:59 97.6 F 65 14 100/57 L 96 09/20/19 07:00 65 18 09/20/19 03:58 98.1 F 67 18 103/58 L 96 Admit Weight 146 lb 5 oz Weight 137 lb 3 oz I/O: I/O 09/19/19 09/20/19 09/21/19 06:59 06:59 06:59 Intake Total 1725 2160 Output Total 3475 Balance -1750 2160 - Quality Measures Condition: Atrial Fibrillation/Flutter (hx or current) CV meds: Eliquis: Yes - Physical Exam General: alert & oriented x3, appears well, no apparent distress, speech clear, affect appropriate HEENT: mucus membranes moist, normocephaly Neck: supple neck, midline trachea, no lymphadenopathy Cardiology: irregularly irregular Lungs: clear to auscultation, normal breath sounds, no wheeze, rales, rhonchi Neurology: cranial nerve 2-12 intact, no lateralizing findings Abdomen: unremarkable, active bowel sounds, no pulsations/bruits - Labs Result Diagrams: 09/20/19 11:28 09/20/19 03:51 - EKG Interpretation EKG Method: Telemetry EKG shows: Atrial fibrillation - Assessment/Plan Assessment/Plan: 1. Atrial arrhythmias - coarse AF and atypical flutter. - amiodarone gtt - improved rate control with low dose diltiazem gtt tele trends 2. CAD hx; LCX- non revascularizable 3. PVD 4. BPD 5. Schizophrenia CV later today with cardiology. If successful, continue amiodarone and will need OAC hand lens polisher.
--- NOTE | 2019-09-20 13:06 | PDOC.EP ---
- Subjective Date: 09/20/19 Time: 13:04 Interval History: persistent AF with successful CV 09/18 Rest[address] in bed. She feels tired today but less SOB - Review of Systems Respiratory: reports: SOB with excertion Cardiology: denies: chest pain, heart racing, light headedness, palpitations, passing out Gastrointestinal: denies: abdominal pain, constipation, nausea, vomitting Musculoskeletal: denies: unstable gait, falls, neck pain - Objective Allergies/Adverse Reactions: Allergies Allergy/AdvReac Type Severity Reaction Status Date / Time ketorolac Allergy Verified 09/10/19 06:45 tramadol Allergy Verified 09/10/19 06:45 Current Medications Acetaminophen (Tylenol) 650 mg PER TUBE Q6H PRN PRN Reason: Fever > 101 Last Admin: 09/20/19 00:10 Dose: 650 mg Albuterol Sulfate (Ventolin) 2.5 mg NEB [id number] [facility] Last Admin: 09/20/19 07:00 Dose: 2.5 mg Amiodarone HCl (Cordarone) 400 mg PO BID [facility] Last Admin: 09/20/19 08:08 Dose: 400 mg Apixaban (Eliquis) 5 mg PO BID [facility] Last Admin: 09/20/19 08:08 Dose: 5 mg Aspirin (Ecotrin) 81 mg PO DAILY [facility] Last Admin: 09/20/19 08:09 Dose: 81 mg Atorvastatin Calcium (Lipitor) 20 mg PO 2100 [facility] Last Admin: 09/19/19 21:26 Dose: 20 mg Bisacodyl (Dulcolax) 10 mg PO DAILYPRN PRN PRN Reason: Constipation Clonazepam (Klonopin) 2 mg PO TID [facility] Last Admin: 09/20/19 08:09 Dose: 2 mg Clopidogrel Bisulfate (Plavix) 75 mg PO DAILY [facility] Last Admin: 09/20/19 08:09 Dose: 75 mg Dextrose/Water (Dextrose 50%) 25 gm SLOW IVP PRN PRN PRN Reason: Hypoglycemia Digoxin (Lanoxin) 0.125 mg PO DAILY [facility] Last Admin: 09/20/19 08:09 Dose: 0.125 mg Furosemide (Lasix) 40 mg PO DAILY-AC [facility] Last Admin: 09/20/19 08:08 Dose: 40 mg Glucagon (Glucagon) 1 mg IM PRN PRN PRN Reason: Hypoglycemia Dextrose/Water (D5w) 1,000 mls @ 0 mls/hr IV .Q0M PRN PRN Reason: Hypoglycemia Insulin Human Lispro (Humalog) 0 units SC .MODERATE SLIDING SC PRN PRN Reason: Moderate Correctional Scale Last Admin: 09/19/19 18:22 Dose: 2 unit Lorazepam (Ativan) 2 mg SLOW IVP Q1H PRN PRN Reason: Breakthrough agitation Stop: 10/13/19 09:49 Last Admin: 09/14/19 02:24 Dose: 2 mg Melatonin (Melatonin) 3 mg PO HS PRN PRN Reason: Insomnia Nicotine (Nicoderm Patch) 21 mg TD Q24HR [facility] Last Admin: 09/19/19 21:26 Dose: 21 mg Pantoprazole Sodium (Protonix) 40 mg PO BID [facility] Last Admin: 09/20/19 08:09 Dose: 40 mg Propofol (Diprivan) 1,000 mg IV INF PRN; Protocol PRN Reason: TO ACHIEVE GOAL RASS Stop: 10/13/19 09:49 Last Admin: 09/15/19 02:23 Dose: 1,000 mg Sodium Chloride (Flush - Normal Saline) 10 ml IVF Q12HR [facility] Last Admin: 09/20/19 08:15 Dose: 10 ml Sodium Chloride (Flush - Normal Saline) 10 ml IVF PRN PRN PRN Reason: Saline Flush Sterile Water (Bacteriostatic Water) 1 ml FS PRN PRN PRN Reason: RECONSTITUTION Topiramate (Topamax) 200 mg PO DAILY [facility] Last Admin: 09/20/19 08:09 Dose: 200 mg Zolpidem Tartrate (Ambien) 5 mg PO HSPRN PRN PRN Reason: Insomnia Vital Signs & Weight: Vital Signs Temp Pulse Resp BP Pulse Ox 09/20/19 08:09 65 09/20/19 07:59 97.6 F 65 14 100/57 L 96 09/20/19 07:00 65 18 09/20/19 03:58 98.1 F 67 18 103/58 L 96 Admit Weight 146 lb 5 oz Weight 137 lb 3 oz I/O: I/O 09/19/19 09/20/19 09/21/19 06:59 06:59 06:59 Intake Total 1725 2160 Output Total 3475 Balance -1750 2160 - Quality Measures Condition: Atrial Fibrillation/Flutter (hx or current) CV meds: Eliquis: Yes - Physical Exam General: alert & oriented x3, appears well, no apparent distress, speech clear, affect appropriate HEENT: mucus membranes moist, mucus membranes dry Neck: supple neck, midline trachea, no lymphadenopathy Cardiology: regular rate and rhythm, PMI nondisplaced Lungs: clear to auscultation, normal breath sounds, no wheeze, rales, rhonchi Neurology: cranial nerve 2-12 intact, grossly intact, no lateralizing findings - Chadsvasc Risk factors Hypertension: 1 Vascular disease: 1 Female: 1 Risk Score: 3 - Labs Result Diagrams: 09/20/19 11:28 09/20/19 03:51 - EKG Interpretation EKG Method: Telemetry EKG shows: Sinus rhythm - Assessment/Plan Assessment/Plan: 1. Atrial arrhythmias - coarse AF and atypical flutter. - amiodarone gtt - CV 09/17 successful 2. CAD hx; LCX- non revascularizable 3. PVD 4. BPD 5. Schizophrenia maintained SR overnight, no AF recurrences seen. Continue amiodarone and eliquis. OK for DC by EP whenever medically cleared
[2019-09-20 13:49] VITALS: BP 102/56; TEMP 97.8
--- NOTE | 2019-09-20 23:26 | DIS ---
DATE OF ADMISSION: 09/09/2019 DATE OF DISCHARGE: 09/20/2019 DISCHARGE DIAGNOSES: 1. Acute hypoxic respiratory failure secondary to severe sepsis from pneumonia versus pulmonary edema. 2. Atrial flutter, status post cardioversion. 3. Hypotension. 4. Moderate to severe mitral regurgitation. 5. Hypokalemia. 6. Leukocytosis. CONSULTATIONS: 1. Dr. Damian Morton with Cardiology. 2. Dr. Anam aMson with Pulmonary Critical Care. 3. Dr. Justo Beck with Electrophysiology. PROCEDURES PERFORMED: ALTAF with cardioversion on 09/12 and ALTAF with cardioversion on 09/18. BRIEF HISTORY OF PRESENT ILLNESS: This is a 58-year-old female who presented to the emergency room with altered mental status. The patient was unable to provide any history and say who she was, however, later on was able to say her name. She then started becoming hypoxic and was started on BiPAP. She was also found to be in atrial flutter with RVR. She was started on a Cardizem drip and initially admitted for stroke workup, COPD exacerbation, and atrial flutter exacerbation. HOSPITAL COURSE: Acute metabolic encephalopathy: The patient had a CT scan of her brain on 09/08, which was normal. I thought that her encephalopathy was most likely secondary to hypoxic and this resolved once the patient was placed on oxygen. No further stroke workup was done. Acute hypoxic respiratory failure secondary to COPD exacerbation versus pulmonary edema versus pneumonia: The patient was initially started on IV steroids and breathing treatments. She was initially admitted to the [facility] and placed on BiPAP. On 09/12, the patient ended up pulling off her BiPAP and her O2 saturation dropped to 50% and the patient became unresponsive. She was subsequently intubated. Followup chest x-ray on 09/13 showed multifocal infiltrates, worst on the right. She spiked a fever, and two COVID swabs were negative. Blood cultures were negative. She was switched from Levaquin to vancomycin and zosyn. She also required IV steroids for hypotension. Due to persistent hypoxia she was started on diuretics for possible pulmonary edema. She rapidly came off oxygen after being diuresed, and was eventually extubated. Antibiotics were discontinued after six days. Her echocardiogram on 09/13 was normal with an EF of 55% to 60% and moderate to severe MR. She was prescribed lasix prn on discharge. Atrial flutter/atrial fibrillation with RVR: The patient initially was placed on a Cardizem drip. She underwent cardioversion on 09/12. She remained in in atrial fibrillation/atrial flutter and was switched to an amiodarone drip. She underwent repeat cardioversion on 09/18. She then converted to sinus rhythm. She will be loaded with amiodarone 400 mg p.o. twice daily for 5 more days and then switched to 200 mg daily thereafter. She needs to follow up with Dr. Morton in a few weeks for further evaluation. The patient was discharged with Eliquis and digoxin as well. Moderate to severe MR: This was noted on echo. She was discharged with diuretics p.r.n. Leukocytosis: The patient has a white count of 12.1 at the time of discharge. However, she has no symptoms and no fever. Consider repeating this as an outpatient. DISCHARGE PHYSICAL EXAMINATION: VITAL SIGNS: Temperature 97.8, heart rate 66, respiratory rate 16, O2 saturation 97% on room air, and blood pressure 102/56. GENERAL: The patient is alert, awake, and oriented x3. CVS: Regular rate and rhythm with no murmurs, rubs, or gallops. LUNGS: Clear to auscultation bilaterally. ABDOMEN: Positive bowel sounds, soft, nontender, and nondistended. EXTREMITIES: No edema. PERTINENT LABORATORY DATA: CBC 09/19: White count 12.1, hemoglobin 12.2, hematocrit 38.3, platelet count of 321. BMP 09/18: Normal. LFTs 09/08: AST 17, ALT 13, alkaline phosphatase 109. Troponin I: 0.010, 0.028, 0.026. Toxicology 09/08: Negative. COVID PCR on 09/08 and 09/11: Negative. IMAGING: CT brain 09/08: Shows no acute disease. Chest x-ray 09/08: Mild prominence of pulmonary vascularity. Chest x-ray 09/10: Increased perihilar interstitial and alveolar opacities may be related to pulmonary edema versus infectious process. Chest x-ray on 09/13: Multifocal infiltrates with right pleural effusion. Chest x-ray 09/17: Mild interval improvement in the mild pulmonary interstitial edema. Interval improvement in aeration of the lung bases. Small bilateral pleural effusions. Echo 09/13: EF 55% to 60%, moderate to severe MR. Moderate aortic insufficiency. DISCHARGE CONDITION: Stable. ACTIVITY: As tolerated. DIET: Heart healthy diet with 2 L fluid restriction. DISCHARGE MEDICATIONS: 1. Nicotine patch 21 mg TD q.24. 2. Amiodarone 400 mg p.o. b.i.d. for 5 more days, then 200 mg daily. 3. Eliquis 5 mg p.o. b.i.d. 4. Digoxin 0.125 mg p.o. daily. 5. Lasix 40 mg p.o. daily p.r.n. All other home medications were resumed. Please refer to discharge med rec sheet. DISCHARGE INSTRUCTIONS: The patient is to follow up with her PCP in a week and Dr. Morton as an outpatient. She should get a repeat chest x-ray in 6 weeks. Take Eliquis and amiodarone as mentioned above. Job ID: [id number] [id number]
== END 2019-09-20 13:49 | disposition home or self-care (01) | DRG 208 ==
LOC: EDBD 11:11 → ERS 11:11 → IMCU/EMU 14:25 → CCU 09-13 10:58 → IMCU/EMU 09-16 13:27 → CCU 09-16 13:59 → IMCU/EMU 09-16 15:46 → 2NO 09-17 18:00
PROVIDERS: ADMIT Internal Medicine; ATTEND Internal Medicine
PROC: 5A09357 Assistance with Respiratory Ventilation, Less than 24 Consecutive Hours, Continuous Positive Airway Pressure (ICD-10-PCS; 2019-09-11)
PROC: 5A1945Z Respiratory Ventilation, 24-96 Consecutive Hours (ICD-10-PCS; principal; 2019-09-13)
PROC: 5A2204Z Restoration of Cardiac Rhythm, Single (ICD-10-PCS; 2019-09-13)
PROC: B24BZZ4 Ultrasonography of Heart with Aorta, Transesophageal (ICD-10-PCS; 2019-09-13)
PROC: 0BH17EZ Insertion of Endotracheal Airway into Trachea, Via Natural or Artificial Opening (ICD-10-PCS; 2019-09-13)
PROC: 5A2204Z Restoration of Cardiac Rhythm, Single (ICD-10-PCS; 2019-09-19)
DX: J44.1 Chronic obstructive pulmonary disease with (acute) exacerbation (principal); J96.21 Acute and chronic respiratory failure with hypoxia; A41.9 Sepsis, unspecified organism; G93.41 Metabolic encephalopathy; R40.2222 Coma scale, best verbal response, incomprehensible words, at arrival to emergency department; I50.23 Acute on chronic systolic (congestive) heart failure; J18.9 Pneumonia, unspecified organism; R65.20 Severe sepsis without septic shock; J96.22 Acute and chronic respiratory failure with hypercapnia; I48.19 Other persistent atrial fibrillation; I48.4 Atypical atrial flutter; J44.0 Chronic obstructive pulmonary disease with (acute) lower respiratory infection; Z20.828 Contact with and (suspected) exposure to other viral communicable diseases; E87.6 Hypokalemia; F31.9 Bipolar disorder, unspecified; F20.9 Schizophrenia, unspecified; F17.210 Nicotine dependence, cigarettes, uncomplicated; R40.2362 Coma scale, best motor response, obeys commands, at arrival to emergency department; R40.2142 Coma scale, eyes open, spontaneous, at arrival to emergency department; E78.5 Hyperlipidemia, unspecified; I25.10 Atherosclerotic heart disease of native coronary artery without angina pectoris; E11.51 Type 2 diabetes mellitus with diabetic peripheral angiopathy without gangrene; F41.9 Anxiety disorder, unspecified; I11.0 Hypertensive heart disease with heart failure; I08.3 Combined rheumatic disorders of mitral, aortic and tricuspid valves; G47.00 Insomnia, unspecified; R45.1 Restlessness and agitation; Z90.49 Acquired absence of other specified parts of digestive tract; Z91.018 Allergy to other foods; Z90.710 Acquired absence of both cervix and uterus; Z79.899 Other long term (current) drug therapy; Z79.82 Long term (current) use of aspirin; Z79.4 Long term (current) use of insulin; Z88.8 Allergy status to other drugs, medicaments and biological substances; Z95.828 Presence of other vascular implants and grafts; Z78.1 Physical restraint status
CPT/HCPCS: 36415; 36416; 70450; 71045; 80048; 80053; 80202; 80307; 82565; 82805; 83605; 83880; 84484; 85025; 85027; 87040; 87635; 92950; 92960; 93005; 93010; 93306; 93312; 93798; 94002; 94003; 94640; 94660; 94760; 96365; 96366; 96368; 96372; 96375; 96376; J0282; J1160; J1650; J1720; J1815; J1940; J1956; J2060; J2543; J2704; J2920; J2930; J3010; J3370; J3475; J3480; J3490; J7050; J7070; J7611; U0003

== ENCOUNTER 2023-02-02 15:41 | Emergency (ER) | payer OTHER ==
[2023-02-02] MEDS ORDERED: HYDROcodone/Acetaminophen 5/325 mg Tablet ONE (18:48)
== END 2023-02-02 19:06 | disposition home or self-care (01) ==
LOC: ERS 15:41
DX: S52.502A Unspecified fracture of the lower end of left radius, initial encounter for closed fracture (principal); E11.9 Type 2 diabetes mellitus without complications; F17.210 Nicotine dependence, cigarettes, uncomplicated; Z79.01 Long term (current) use of anticoagulants; W18.30XA Fall on same level, unspecified, initial encounter
CPT/HCPCS: 29105

== ENCOUNTER 2024-03-11 12:33 | Inpatient (IN) | payer OTHER ==
[2024-03-11] MEDS ORDERED: Cefepime 2 GM VIAL ONE (15:23)
[2024-03-11] MEDS ORDERED: Diltiazem HCl/D5W 125 ML ONE (15:23)
[2024-03-11] MEDS ORDERED: Acetaminophen 650 MG Suppository ONE (15:23)
[2024-03-11] MEDS ORDERED: Sodium Chloride 0.9% 100 ML ONE (15:23)
[2024-03-11] MEDS ORDERED: dilTIAZem 25 MG/5 ML VIAL ONE ×2 (15:37→17:09)
[2024-03-11 15:41] LABS: #Basophils 0.06 10x3/uL (0.0-0.2); #Eosinophils Less than 0.03 10x3/uL (0.0-0.7); %Basophils 0.3 % (0.0-1.0); %Lymphocytes 3.7 % (21.0-51.0); %Neutrophils 83.9 % (42.0-75.0); Hematocrit 48.8 % (36.0-47.0); Hemoglobin 16.5 g/dL (12.0-16.0); Mean Corpuscular HGB CONC 33.8 g/dL (32.0-36.0); Mean Corpuscular Hemoglobin 33.1 pg (27.0-31.0); Mean Corpuscular Volume 97.8 fL (78.0-98.0); Mean Platelet Volume 10.3 fL (7.4-10.4); Platelet Count 418 10x3/uL (130-400); RBC Distribution Width 12.7 % (11.5-14.5); Red Blood Cell (RBC) Count 4.99 mill/uL (4.20-5.40)
[2024-03-11 15:54] LABS: INR-International Normal Ratio 1.3; Prothrombin Time 16.6 sec (12.0-14.7)
[2024-03-11 15:55] LABS: PTT 20.8 sec (22.9-36.1)
[2024-03-11 16:25] LABS: Phosphorus 3.9 mg/dL (2.3-4.7)
[2024-03-11 16:27] LABS: Acetaminophen Less than 10 mcg/mL (Less than 10); Alcohol Less than 10.0 mg/dL (Less than 10); Magnesium 3.3 mg/dL (1.6-2.6); Salicylate Less than 8.0 mg/dL (Less than 8.0)
[2024-03-11 16:28] LABS: ALT (SGPT) 25 U/L (8-55); AST (SGOT) 28 U/L (5-34); Albumin 3.5 g/dL (3.4-4.8); Alkaline Phosphatase 94 U/L (40-110); Anion Gap 26 mmol/L (10-20); BUN (Urea Nitrogen) 33 mg/dL (9.8-20.1); Bilirubin, Total 0.4 mg/dL (0.2-1.2); Calc. Creatinine Clearance 0 mL/min (70-130); Calcium 10.6 mg/dL (7.8-10.44); Carbon Dioxide 16 mmol/L (23-31); Chloride 110 mmol/L (98-107); Estimated GFR 28; Globulin 4.2 g/dL (2.4-3.5); Magnesium 3.3 mg/dL (1.6-2.6); Potassium 3.7 mmol/L (3.5-5.1); Protein, Total 7.7 g/dL (5.8-8.1); Sodium 148 mmol/L (136-145)
[2024-03-11 16:30] LABS: Actual Bicarbonate (HCO3v) 17.7 mEq/L (22-28); Analyzer IN Cardio ER; Base Excess -6.7 mEq/L (-2.0 to +3.0); Calcium, Ionized (venous) 1.23 mmol/L (1.16-1.32); Chloride (VBG) 109 mmol/L (98-106); Hematocrit-VBG 53 % (36.0-47.0); Hemoglobin (Hb) 17.9 g/dL (11.7-16.0); Potassium (VBG) 3.81 mmol/L (3.70-5.30); pH (venous) 7.344 (7.32-7.43)
[2024-03-11 16:39] LABS: Glucose 930 mg/dL (80-115); Troponin I 0.247 ng/mL (< 0.028)
[2024-03-11 16:49] LABS: Sodium 156 mmol/L (133-146)
[2024-03-11] MEDS ORDERED: HUM PROTHROMBIN CPLX(PCC)4FACT 2,000 UNITS in Admixture Fee 1 EACH IV SCH (17:00)
[2024-03-11] MEDS ORDERED: Glucagon 1 MG/ML KIT IM PRN (17:21)
[2024-03-11] MEDS ORDERED: Dextrose 5% in Water 1,000 ML IV PRN (17:21)
[2024-03-11] MEDS ORDERED: hydrALAZINE 20 MG/ML VIAL SLOW IVP PRN (17:21)
[2024-03-11] MEDS ORDERED: Ondansetron ODT 4 MG TAB PO PRN (17:21)
[2024-03-11] MEDS ORDERED: Ondansetron PF 4 MG/2 ML Vial IVP PRN (17:21)
[2024-03-11 18:07] LABS: Bacteria/HPF 2+ HPF (None Seen); Bilirubin Negative (Negative); Blood, Urine 3+ (Negative); CAUTI Indications for Culture Alt mental st,lethar; Clarity Turbid (Clear); Glucose, Urine (Dipstick) Greater than 1000 mg/dL (Negative); Ketone, Urine Trace mg/dL (Negative); Leukocyte 250 Leu/uL (Negative); Nitrite Negative (Negative); Protein, Urine (Dipstick) 30 mg/dL (Neg-Trace); RBC/HPF 21-50 HPF (0-3); Specific Gravity, Urine 1.029 (1.002-1.036); Squamous Epithelial None Seen HPF (0-3); Urobilinogen Normal mg/dL (Less than 2); WBC/HPF Greater than 50 HPF (0-3); pH, Urine 5.5 (5.0-9.0)
[2024-03-11 18:08] LABS: Urine Culture Reflex Yes Yes
[2024-03-11 18:10] LABS: Amphetamine Not Detected (NotDetected); Barbiturates Screen Not Detected (NotDetected); Benzodiazepine Screen Not Detected (NotDetected); Cocaine Metabolite Screen Not Detected (NotDetected); Methadone Not Detected (NotDetected); Methamphetamine Not Detected (NotDetected); Opiate Screen Not Detected (NotDetected); Oxycodone Screen Not Detected (NotDetected); Phencyclidine (PCP) Not Detected (NotDetected); THC/Cannabinoid Screen Not Detected (NotDetected); Tricyclic Screen Not Detected (NotDetected)
[2024-03-11] MEDS ORDERED: Electrolyte Replacement Protocol 1 EACH IVPB SCH (18:14)
[2024-03-11] MEDS ORDERED: Sodium Chloride 0.9% 1,000 ML IV PRN ×4 (18:14)
[2024-03-11] MEDS ORDERED: Dextrose 5 %-0.45 % NaCl 1,000 ML IV PRN (18:14)
[2024-03-11] MEDS ORDERED: INSULIN REGULAR IN 0.9 % NACL 100 ML IVPB SCH (18:15)
[2024-03-11] MEDS ORDERED: clonazePAM 1 MG TAB PO PRN (18:27)
[2024-03-11] MEDS ORDERED: Lorazepam 2 MG/ML VIAL ONE (18:41)
[2024-03-11] MEDS ORDERED: INSULIN REGULAR IN 0.9 % NACL 100 ML ONE (18:41)
[2024-03-11] MEDS ORDERED: Nicotine 14 MG PATCH ONE (18:41)
[2024-03-11] MEDS ORDERED: Insulin Regular, Human 100 UNIT/ML 10 ML VIAL ONE (18:41)
[2024-03-11] MEDS ORDERED: D5 1/2 NS w/20 mEq KCL 0 ML ONE (19:24)
[2024-03-11 20:03] LABS: Anion Gap 22 mmol/L (10-20); BUN (Urea Nitrogen) 30 mg/dL (9.8-20.1); Calc. Creatinine Clearance 0 mL/min (70-130); Calcium 10.1 mg/dL (7.8-10.44); Carbon Dioxide 17 mmol/L (23-31); Chloride 119 mmol/L (98-107); Estimated GFR 33; Glucose 662 mg/dL (80-115); Lactic Acid 4.97 mmol/L (0.5-2.2); Potassium 4.2 mmol/L (3.5-5.1); Sodium 154 mmol/L (136-145)
[2024-03-11] MEDS ORDERED: Amiodarone 200 MG TAB PO SCH (21:00)
[2024-03-11] MEDS ORDERED: D5 1/2 NS w/20 mEq KCL 1,000 ML ONE (21:21)
[2024-03-11] MEDS: NS 0.9% w/ 20 MEQ KCL 1,000 ML IV PRN (22:10)
[2024-03-11 23:14] LABS: Anion Gap 17 mmol/L (10-20); BUN (Urea Nitrogen) 23 mg/dL (9.8-20.1); Calc. Creatinine Clearance 43 mL/min (70-130); Calcium 8.9 mg/dL (7.8-10.44); Carbon Dioxide 16 mmol/L (23-31); Chloride 129 mmol/L (98-107); Estimated GFR 49; Glucose 416 mg/dL (80-115); Potassium 3.9 mmol/L (3.5-5.1); Sodium 158 mmol/L (136-145)
[2024-03-12] MEDS: Metoprolol Tartrate 5 MG (5 mL) VIAL IVP SCH (00:18)
[2024-03-12] MEDS ORDERED: dilTIAZem 125 MG in Sodium Chloride 0.9% 100 ML IVPB SCH (00:30)
[2024-03-12] MEDS: Vancomycin (BATCH) 1.75 GM in Premix 1 BAG IVPB SCH (00:45)
[2024-03-12] MEDS: Amitriptyline HCl 100 MG TAB PO SCH (00:48)
[2024-03-12] MEDS: Pantoprazole DR 40 MG TAB PO SCH (00:49)
[2024-03-12] MEDS: Diltiazem HCl/D5W 125 MG in Premix 1 BAG IVPB SCH (01:18)
[2024-03-12 01:58] LABS: Lactic Acid 3.14 mmol/L (0.5-2.2)
[2024-03-12] MEDS: NS 0.9% w/ 20 MEQ KCL 1,000 ML IV PRN (02:33)
[2024-03-12] MEDS: Digoxin 0.5 MG/2 ML AMP SLOW IVP SCH ×2 (02:48→05:03)
[2024-03-12] MEDS: D5 1/2 NS w/20 mEq KCL 1,000 ML IV PRN (03:37)
[2024-03-12 03:38] LABS: Anion Gap 19 mmol/L (10-20); BUN (Urea Nitrogen) 22 mg/dL (9.8-20.1); Calc. Creatinine Clearance 56 mL/min (70-130); Calcium 8.1 mg/dL (7.8-10.44); Carbon Dioxide 14 mmol/L (23-31); Chloride 131 mmol/L (98-107); Estimated GFR 68; Glucose 359 mg/dL (80-115); Potassium 4.2 mmol/L (3.5-5.1)
[2024-03-12 03:46] LABS: Hemoglobin A1c 9.3 % (4.0-6.0)
[2024-03-12 03:55] LABS: ALT (SGPT) 24 U/L (8-55); AST (SGOT) 60 U/L (5-34); Albumin 2.6 g/dL (3.4-4.8); Alkaline Phosphatase 64 U/L (40-110); Anion Gap 16 mmol/L (10-20); BUN (Urea Nitrogen) 20 mg/dL (9.8-20.1); Bilirubin, Total 0.3 mg/dL (0.2-1.2); CK (CPK) 4078 U/L (29-168); Calc. Creatinine Clearance 62 mL/min (70-130); Calcium 7.9 mg/dL (7.8-10.44); Carbon Dioxide 15 mmol/L (23-31); Cardiac Risk 5.3 (Less than 4.5); Chloride 131 mmol/L (98-107); Cholesterol 106 mg/dl (< 200 Desired); Estimated GFR 78; Globulin 3.3 g/dL (2.4-3.5); Glucose 282 mg/dL (80-115); HDL Cholesterol 20 mg/dL (>60 Neg Risk); LDL Cholesterol, Calculated 56 mg/dL; Magnesium 2.6 mg/dL (1.6-2.6); Potassium 4.2 mmol/L (3.5-5.1); Protein, Total 5.9 g/dL (5.8-8.1); Sodium 158 mmol/L (136-145); Triglycerides 148 mg/dL (Less than 150)
[2024-03-12 03:56] LABS: Sodium 160 mmol/L (136-145)
[2024-03-12 03:57] LABS: Phosphorus 2.7 mg/dL (2.3-4.7)
[2024-03-12] MEDS: Cefepime 2 GM in Sodium Chloride 0.9% 100 ML IVPB SCH (05:03)
[2024-03-12] MEDS: Dextrose 50% Abboject 50 ML SYRINGE SLOW IVP PRN (05:45)
[2024-03-12] MEDS ORDERED: Electrolyte Replacement Protocol FS PRN (07:00)
[2024-03-12 07:03] LABS: #Basophils 0.05 10x3/uL (0.0-0.2); #Eosinophils Less than 0.03 10x3/uL (0.0-0.7); %Basophils 0.2 % (0.0-1.0); %Lymphocytes 9.9 % (21.0-51.0); %Monocytes 13.9 % (0.0-10.0); %Neutrophils 75.1 % (42.0-75.0); Hematocrit 44.6 % (36.0-47.0); Hemoglobin 14.4 g/dL (12.0-16.0); Mean Corpuscular HGB CONC 32.3 g/dL (32.0-36.0); Mean Corpuscular Hemoglobin 33.3 pg (27.0-31.0); Mean Platelet Volume 10.8 fL (7.4-10.4); Platelet Count 264 10x3/uL (130-400); RBC Distribution Width 13.3 % (11.5-14.5); Red Blood Cell (RBC) Count 4.33 mill/uL (4.20-5.40)
[2024-03-12 07:06] LABS: Anion Gap 15 mmol/L (10-20); BUN (Urea Nitrogen) 17 mg/dL (9.8-20.1); Calc. Creatinine Clearance 70 mL/min (70-130); Calcium 8.1 mg/dL (7.8-10.44); Carbon Dioxide 17 mmol/L (23-31); Chloride 131 mmol/L (98-107); Estimated GFR 89; Glucose 171 mg/dL (80-115); Potassium 3.9 mmol/L (3.5-5.1); Sodium 159 mmol/L (136-145)
[2024-03-12] MEDS: Amiodarone 450 MG in Dextrose 5% in Water 250 ML IVPB SCH (07:37)
[2024-03-12] MEDS ORDERED: Vancomycin 1.25 GM in Sodium Chloride 0.9% 250 ML 250 ML IVPB SCH (09:00)
[2024-03-12] MEDS ORDERED: Vancomycin HCl 500 MG in Sodium Chloride 0.9% 100 ML IVPB SCH (09:00)
[2024-03-12] MEDS ORDERED: Pantoprazole 40 MG VIAL IVP SCH (09:00)
[2024-03-12] MEDS: Topiramate 100 MG TAB PO SCH (09:19)
[2024-03-12] MEDS: Atorvastatin Calcium 20 MG TAB PO SCH (09:19)
[2024-03-12] MEDS: TETANUS, DIPHTHERIA TOX,ADULT (TDVAX) 0.5 ML VIAL IM ONE (09:19)
[2024-03-12 09:48] LABS: Actual Bicarbonate (HCO3a) 17.8 mEq/L (22-28); Base Excess (BEa) -6.3 mEq/L (-2.0 to +3.0); CO2 Tension 31.3 mmHg (35.0-45.0); Calcium, Ionized (arterial) 1.18 mmol/L (1.12-1.30); Carboxyhemoglobin (COHb) 0.6 gm% (0.0-3.0); Hematocrit-ABG 39 % (36.0-47.0); Hemoglobin (Hb) 13.2 g/dL (12.0-16.0); O2 Tension (PaO2), arterial 62.2 mmHg (> 80.0); Potassium - ABG Lab 4.04 mmol/L (3.70-5.30); pH, Arterial 7.373 (7.35-7.45)
[2024-03-12 09:51] LABS: ALV-art Gradient 255.175 mmHg (0-20); Puncture Site Right Brachial art
[2024-03-12] MEDS ORDERED: Glucagon 1 MG/ML KIT IM PRN (10:00)
[2024-03-12] MEDS ORDERED: Dextrose 5% in Water 1,000 ML IV PRN (10:00)
[2024-03-12] MEDS: Dexmedetomidine In 0.9 % NaCl 100 ML IV SCH (10:16)
[2024-03-12] MEDS: Sodium Chloride 0.45% 1,000 ML IV SCH (10:16)
[2024-03-12] MEDS: Insulin Regular, Human 100 UNIT/ML 10 ML VIAL SC PRN (11:08)
[2024-03-12] MEDS: Ipratropium/Albuterol 3 ML NEB NEB SCH (11:20)
[2024-03-12] MEDS: Midazolam HCl 2 mg/2 ml Vial ONE (12:30)
[2024-03-12] MEDS: Rocuronium Bromide 50 MG/5 ML VIAL IVP SCH (12:30)
[2024-03-12] MEDS ORDERED: Propofol 1,000 MG/100 ML VIAL IV PRN (12:45)
[2024-03-12] MEDS ORDERED: Fentanyl BOLUS 250 ML IVPB PRN (12:45)
[2024-03-12] MEDS ORDERED: DISCONTINUE PREVIOUS NARCOTIC PAIN MEDICATIONS AND BENZODIAZEPINES FS SCH (12:45)
[2024-03-12] MEDS ORDERED: Propofol BOLUS 1,000 MG/100 ML VIAL IV PRN (12:45)
[2024-03-12] MEDS: Amiodarone 150 MG, Admixture Fee 1 EACH in Dextrose 5% in Water 100 ML IVPB SCH (12:54)
[2024-03-12] MEDS: Fentanyl CADD 100 ML ONE (12:56)
[2024-03-12] MEDS: Midazolam HCl 2 mg/2 ml Vial SLOW IVP SCH (12:58)
[2024-03-12] MEDS ORDERED: Rocuronium Bromide 10 MG/ML (10ML VIAL) ONE (13:08)
[2024-03-12 13:22] LABS: Anion Gap 13 mmol/L (10-20); BUN (Urea Nitrogen) 15 mg/dL (9.8-20.1); Calc. Creatinine Clearance 74 mL/min (70-130); Calcium 8.4 mg/dL (7.8-10.44); Carbon Dioxide 16 mmol/L (23-31); Chloride 129 mmol/L (98-107); Estimated GFR 95; Glucose 142 mg/dL (80-115); Potassium 3.9 mmol/L (3.5-5.1); Sodium 154 mmol/L (136-145)
[2024-03-12 13:50] LABS: Actual Bicarbonate (HCO3a) 18.1 mEq/L (22-28); Base Excess (BEa) -4.2 mEq/L (-2.0 to +3.0); CO2 Tension 25.8 mmHg (35.0-45.0); Calcium, Ionized (arterial) 1.16 mmol/L (1.12-1.30); Carboxyhemoglobin (COHb) 0.6 gm% (0.0-3.0); Hematocrit-ABG 37 % (36.0-47.0); Hemoglobin (Hb) 12.7 g/dL (12.0-16.0); O2 Tension (PaO2), arterial 66.7 mmHg (> 80.0); Potassium - ABG Lab 3.73 mmol/L (3.70-5.30); pH, Arterial 7.463 (7.35-7.45)
[2024-03-12 13:51] LABS: Puncture Site Right Radial artery
[2024-03-12] MEDS ORDERED: Vancomycin 1 GM in Premix 1 BAG IVPB SCH (14:00)
[2024-03-12] MEDS: Vancomycin HCl 750 MG in Sodium Chloride 0.9% 250 ML 250 ML IVPB SCH (14:22)
[2024-03-12] MEDS: NOREPINEPHRINE 8 MG/250 ML-D5W 250 ML IVPB SCH (17:03)
[2024-03-12] MEDS: Pantoprazole 40 MG VIAL IVP SCH (21:55)
[2024-03-12] MEDS: Acetaminophen 325 MG TAB PO PRN (22:30)
[2024-03-13] MEDS: Vancomycin HCl 750 MG in Sodium Chloride 0.9% 250 ML 250 ML IVPB SCH (00:31)
[2024-03-13 05:36] LABS: #Basophils 0.04 10x3/uL (0.0-0.2); %Basophils 0.3 % (0.0-1.0); %Eosinophils 0.3 % (0.0-10.0); %Lymphocytes 24.2 % (21.0-51.0); %Monocytes 6.9 % (0.0-10.0); %Neutrophils 67.7 % (42.0-75.0); Hematocrit 36.9 % (36.0-47.0); Mean Corpuscular HGB CONC 32.5 g/dL (32.0-36.0); Mean Corpuscular Volume 101.4 fL (78.0-98.0); Mean Platelet Volume 10.3 fL (7.4-10.4); Platelet Count 241 10x3/uL (130-400); RBC Distribution Width 13.1 % (11.5-14.5); Red Blood Cell (RBC) Count 3.64 mill/uL (4.20-5.40)
[2024-03-13 06:55] LABS: ALT (SGPT) 37 U/L (8-55); AST (SGOT) 58 U/L (5-34); Albumin 2.1 g/dL (3.4-4.8); Anion Gap 11 mmol/L (10-20); BUN (Urea Nitrogen) 17 mg/dL (9.8-20.1); Bilirubin, Total 0.7 mg/dL (0.2-1.2); CK (CPK) 2517 U/L (29-168); Calc. Creatinine Clearance 72 mL/min (70-130); Calcium 7.7 mg/dL (7.8-10.44); Carbon Dioxide 17 mmol/L (23-31); Chloride 121 mmol/L (98-107); Estimated GFR 92; Glucose 262 mg/dL (80-115); Potassium 3.5 mmol/L (3.5-5.1); Protein, Total 5.1 g/dL (5.8-8.1); Sodium 145 mmol/L (136-145)
[2024-03-13 07:29] LABS: Alkaline Phosphatase 56 U/L (40-110)
[2024-03-13 07:37] LABS: Actual Bicarbonate (HCO3a) 17.4 mEq/L (22-28); Base Excess (BEa) -4.2 mEq/L (-2.0 to +3.0); Calcium, Ionized (arterial) 1.15 mmol/L (1.12-1.30); Carboxyhemoglobin (COHb) 0.7 gm% (0.0-3.0); Hematocrit-ABG 38 % (36.0-47.0); Hemoglobin (Hb) 12.8 g/dL (12.0-16.0); O2 Tension (PaO2), arterial 94.6 mmHg (> 80.0); Potassium - ABG Lab 3.42 mmol/L (3.70-5.30); pH, Arterial 7.487 (7.35-7.45)
[2024-03-13 07:38] LABS: ALV-art Gradient 125.575 mmHg (0-20); CO2 Tension 23.5 mmHg (35.0-45.0); Puncture Site Right Brachial art
[2024-03-13] MEDS: Fentanyl CADD 100 ML IV SCH (07:53)
[2024-03-13 08:08] LABS: Digoxin 0.48 ng/mL (0.8-2.0)
[2024-03-13] MEDS: Vancomycin 1 GM in Premix 1 BAG IVPB SCH (11:52)
[2024-03-13] MEDS: Potassium Phosphate 30 MMOL in Sodium Chloride 0.9% 250 ML 250 ML IVPB SCH (13:30)
[2024-03-13] MEDS: Insulin Glargine 30 UNITS/0.3 ML VIAL SC SCH (18:12)
[2024-03-14 05:56] LABS: #Basophils 0.05 10x3/uL (0.0-0.2); %Basophils 0.4 % (0.0-1.0); %Eosinophils 1.3 % (0.0-10.0); %Monocytes 6.8 % (0.0-10.0); %Neutrophils 69.1 % (42.0-75.0); Hematocrit 37.1 % (36.0-47.0); Hemoglobin 12.1 g/dL (12.0-16.0); Mean Corpuscular HGB CONC 32.6 g/dL (32.0-36.0); Mean Corpuscular Hemoglobin 33.2 pg (27.0-31.0); Mean Corpuscular Volume 101.6 fL (78.0-98.0); Platelet Count 228 10x3/uL (130-400); RBC Distribution Width 12.7 % (11.5-14.5); Red Blood Cell (RBC) Count 3.65 mill/uL (4.20-5.40)
[2024-03-14 06:22] LABS: ALT (SGPT) 34 U/L (8-55); AST (SGOT) 37 U/L (5-34); Albumin 2.1 g/dL (3.4-4.8); Alkaline Phosphatase 60 U/L (40-110); Anion Gap 10 mmol/L (10-20); BUN (Urea Nitrogen) 12 mg/dL (9.8-20.1); Bilirubin, Total 0.5 mg/dL (0.2-1.2); CK (CPK) 1163 U/L (29-168); Calc. Creatinine Clearance 83 mL/min (70-130); Calcium 7.9 mg/dL (7.8-10.44); Carbon Dioxide 18 mmol/L (23-31); Chloride 117 mmol/L (98-107); Estimated GFR 99; Globulin 3.2 g/dL (2.4-3.5); Glucose 308 mg/dL (80-115); Potassium 4.2 mmol/L (3.5-5.1); Protein, Total 5.3 g/dL (5.8-8.1); Sodium 141 mmol/L (136-145)
[2024-03-14] MEDS: Insulin Glargine 30 UNITS/0.3 ML VIAL SC SCH ×2 (08:16→09:41)
[2024-03-14] MEDS ORDERED: Insulin Glargine 30 UNITS/0.3 ML VIAL SC SCH (09:00)
[2024-03-14] MEDS: Furosemide 40 MG (4 mL) VIAL IVP SCH (09:40)
[2024-03-14] MEDS ORDERED: Sodium Chloride 0.45% 1,000 ML IV SCH (13:00)
[2024-03-14] MEDS: Lorazepam 2 MG/ML VIAL SLOW IVP PRN (13:30)
[2024-03-15 04:56] LABS: #Basophils 0.04 10x3/uL (0.0-0.2); %Basophils 0.3 % (0.0-1.0); %Eosinophils 1.6 % (0.0-10.0); %Lymphocytes 22.4 % (21.0-51.0); %Monocytes 8.9 % (0.0-10.0); %Neutrophils 66.5 % (42.0-75.0); Hematocrit 35.2 % (36.0-47.0); Hemoglobin 11.5 g/dL (12.0-16.0); Mean Corpuscular HGB CONC 32.7 g/dL (32.0-36.0); Mean Corpuscular Hemoglobin 32.6 pg (27.0-31.0); Mean Corpuscular Volume 99.7 fL (78.0-98.0); Mean Platelet Volume 10.8 fL (7.4-10.4); Platelet Count 238 10x3/uL (130-400); RBC Distribution Width 12.5 % (11.5-14.5); Red Blood Cell (RBC) Count 3.53 mill/uL (4.20-5.40)
[2024-03-15 05:09] LABS: Anion Gap 11 mmol/L (10-20); BUN (Urea Nitrogen) 9 mg/dL (9.8-20.1); Calc. Creatinine Clearance 87 mL/min (70-130); Calcium 8.2 mg/dL (7.8-10.44); Carbon Dioxide 21 mmol/L (23-31); Chloride 113 mmol/L (98-107); Estimated GFR 95; Glucose 252 mg/dL (80-115); Potassium 3.8 mmol/L (3.5-5.1); Sodium 141 mmol/L (136-145)
[2024-03-15] MEDS: Insulin Glargine 30 UNITS/0.3 ML VIAL SC SCH (08:02)
[2024-03-15 10:05] LABS: Actual Bicarbonate (HCO3a) 20.4 mEq/L (22-28); Base Excess (BEa) -3.2 mEq/L (-2.0 to +3.0); CO2 Tension 32.2 mmHg (35.0-45.0); Calcium, Ionized (arterial) 1.22 mmol/L (1.12-1.30); Carboxyhemoglobin (COHb) 0.7 gm% (0.0-3.0); Hematocrit-ABG 36 % (36.0-47.0); Hemoglobin (Hb) 12.1 g/dL (12.0-16.0); O2 Tension (PaO2), arterial 100.5 mmHg (> 80.0); Potassium - ABG Lab 4.05 mmol/L (3.70-5.30)
[2024-03-15 10:12] LABS: Puncture Site Right Brachial art
[2024-03-15] MEDS: Insulin Regular, Human 100 UNIT/ML 10 ML VIAL SC PRN (12:40)
[2024-03-15] MEDS ORDERED: NOREPINEPHRINE 8 MG/250 ML-D5W 250 ML IVPB SCH (18:30)
[2024-03-16 05:13] LABS: #Basophils 0.03 10x3/uL (0.0-0.2); %Basophils 0.3 % (0.0-1.0); %Eosinophils 1.8 % (0.0-10.0); %Lymphocytes 17.5 % (21.0-51.0); %Monocytes 9.8 % (0.0-10.0); %Neutrophils 70.1 % (42.0-75.0); Hematocrit 32.1 % (36.0-47.0); Hemoglobin 10.3 g/dL (12.0-16.0); Mean Corpuscular HGB CONC 32.1 g/dL (32.0-36.0); Mean Corpuscular Hemoglobin 33.2 pg (27.0-31.0); Mean Corpuscular Volume 103.5 fL (78.0-98.0); Mean Platelet Volume 11.3 fL (7.4-10.4); Platelet Count 201 10x3/uL (130-400); RBC Distribution Width 12.6 % (11.5-14.5)
[2024-03-16 05:31] LABS: Anion Gap 12 mmol/L (10-20); BUN (Urea Nitrogen) 10 mg/dL (9.8-20.1); Calc. Creatinine Clearance 105 mL/min (70-130); Calcium 8.7 mg/dL (7.8-10.44); Carbon Dioxide 22 mmol/L (23-31); Chloride 111 mmol/L (98-107); Estimated GFR 100; Glucose 196 mg/dL (80-115); Potassium 3.8 mmol/L (3.5-5.1); Sodium 141 mmol/L (136-145)
[2024-03-16 07:25] LABS: Actual Bicarbonate (HCO3a) 23.9 mEq/L (22-28); Base Excess (BEa) -0.6 mEq/L (-2.0 to +3.0); Calcium, Ionized (arterial) 1.24 mmol/L (1.12-1.30); Carboxyhemoglobin (COHb) 0.9 gm% (0.0-3.0); Hematocrit-ABG 36 % (36.0-47.0); Hemoglobin (Hb) 12.2 g/dL (12.0-16.0); O2 Tension (PaO2), arterial 82.3 mmHg (> 80.0); Potassium - ABG Lab 3.96 mmol/L (3.70-5.30); pH, Arterial 7.406 (7.35-7.45)
[2024-03-16 07:32] LABS: Puncture Site Right Brachial art
[2024-03-16] MEDS ORDERED: Insulin Glargine 30 UNITS/0.3 ML VIAL SC SCH (09:00)
[2024-03-16] MEDS: Insulin NPH Human Isophane 100 UNITS/ML (10 ML VIAL) SC SCH (09:15)
[2024-03-16] MEDS: Furosemide 40 MG (4 mL) VIAL SLOW IVP SCH (09:38)
[2024-03-16] MEDS: Cefepime 1 GM in Sodium Chloride 0.9% 100 ML IVPB SCH (14:37)
[2024-03-17 05:18] LABS: #Basophils 0.03 10x3/uL (0.0-0.2); %Basophils 0.3 % (0.0-1.0); %Eosinophils 1.6 % (0.0-10.0); %Lymphocytes 22.1 % (21.0-51.0); %Monocytes 13.1 % (0.0-10.0); %Neutrophils 62.2 % (42.0-75.0); Hematocrit 31.7 % (36.0-47.0); Hemoglobin 10.1 g/dL (12.0-16.0); Mean Corpuscular HGB CONC 31.9 g/dL (32.0-36.0); Mean Corpuscular Hemoglobin 32.8 pg (27.0-31.0); Mean Corpuscular Volume 102.9 fL (78.0-98.0); Mean Platelet Volume 11.5 fL (7.4-10.4); Platelet Count 138 10x3/uL (130-400); RBC Distribution Width 12.8 % (11.5-14.5); Red Blood Cell (RBC) Count 3.08 mill/uL (4.20-5.40)
[2024-03-17 05:41] LABS: Anion Gap 13 mmol/L (10-20); BUN (Urea Nitrogen) 13 mg/dL (9.8-20.1); Calc. Creatinine Clearance 97 mL/min (70-130); Calcium 8.5 mg/dL (7.8-10.44); Carbon Dioxide 23 mmol/L (23-31); Chloride 107 mmol/L (98-107); Estimated GFR 98; Glucose 249 mg/dL (80-115); Potassium 3.5 mmol/L (3.5-5.1); Sodium 139 mmol/L (136-145)
[2024-03-17 06:57] LABS: Actual Bicarbonate (HCO3a) 27.9 mEq/L (22-28); Base Excess (BEa) 3.5 mEq/L (-2.0 to +3.0); CO2 Tension 41.2 mmHg (35.0-45.0); Calcium, Ionized (arterial) 1.22 mmol/L (1.12-1.30); Hematocrit-ABG 43 % (36.0-47.0); Hemoglobin (Hb) 14.5 g/dL (12.0-16.0); O2 Tension (PaO2), arterial 86.4 mmHg (> 80.0); Potassium - ABG Lab 3.84 mmol/L (3.70-5.30); pH, Arterial 7.448 (7.35-7.45)
[2024-03-17 06:59] LABS: Puncture Site Right Brachial art
[2024-03-17] MEDS: Potassium Chloride 20 MEQ TAB PO SCH (07:37)
[2024-03-17] MEDS: Potassium Bicarbonate/Cit Ac 20 MEQ TAB PER TUBE SCH (08:00)
[2024-03-17] MEDS: Vecuronium 10 MG VIAL IVP SCH (08:20)
[2024-03-17] MEDS ORDERED: Insulin NPH Human Isophane 100 UNITS/ML (10 ML VIAL) SC SCH ×2 (08:37→09:00)
[2024-03-17] MEDS: Lactulose 20 GM (30 mL) UDCUP PER TUBE SCH (08:49)
[2024-03-17] MEDS: Ibuprofen 100 MG/5 ML UDCUP PER TUBE SCH (08:49)
[2024-03-17] MEDS: Vecuronium 10 MG VIAL ONE (08:50)
[2024-03-17] MEDS: Insulin NPH Human Isophane 100 UNITS/ML (10 ML VIAL) SC SCH ×2 (09:01→23:14)
[2024-03-17] MEDS: Oxymetazoline HCl 0.05% (30 ML BOT) NS SCH (09:50)
[2024-03-17] MEDS: Cefepime 2 GM in Sodium Chloride 0.9% 100 ML IVPB SCH (14:04)
[2024-03-18 06:29] LABS: Hematocrit 35.8 % (36.0-47.0); Hemoglobin 11.6 g/dL (12.0-16.0); Mean Corpuscular HGB CONC 32.4 g/dL (32.0-36.0); Mean Corpuscular Hemoglobin 33.1 pg (27.0-31.0); Mean Corpuscular Volume 102.3 fL (78.0-98.0); Mean Platelet Volume 10.6 fL (7.4-10.4); Platelet Count 271 10x3/uL (130-400); RBC Distribution Width 12.8 % (11.5-14.5)
[2024-03-18 06:40] LABS: Anion Gap 14 mmol/L (10-20); BUN (Urea Nitrogen) 16 mg/dL (9.8-20.1); Calc. Creatinine Clearance 84 mL/min (70-130); Carbon Dioxide 25 mmol/L (23-31); Chloride 107 mmol/L (98-107); Estimated GFR 89; Glucose 273 mg/dL (80-115); Potassium 3.6 mmol/L (3.5-5.1); Sodium 142 mmol/L (136-145)
[2024-03-18 06:47] LABS: Band 3 % (5-11); Eosinophils 6 % (0-10); Hypochromia SLIGHT = 6-15 cells HPF (0-5); Lymphocytes 10 % (21-51); Macrocytosis SLIGHT = 6-15 cells HPF (0-5); Metamyelocyte 1 % (0-0); Monocytes 13 % (0-10); Neutrophil 64 % (42-75); Platelet Adequacy Comment Platelets Normal; Polychromasia SLIGHT = 2-3 cells HPF (0-2); Reactive Lymphocytes 2 % (0-10)
[2024-03-18 07:43] LABS: Actual Bicarbonate (HCO3a) 23.7 mEq/L (22-28); Base Excess (BEa) -0.1 mEq/L (-2.0 to +3.0); CO2 Tension 35.7 mmHg (35.0-45.0); Calcium, Ionized (arterial) 1.17 mmol/L (1.12-1.30); Carboxyhemoglobin (COHb) 0.3 gm% (0.0-3.0); Hematocrit-ABG 36 % (36.0-47.0); Hemoglobin (Hb) 12.4 g/dL (12.0-16.0); O2 Tension (PaO2), arterial 67.2 mmHg (> 80.0); Potassium - ABG Lab 3.53 mmol/L (3.70-5.30)
[2024-03-18 07:48] LABS: ALV-art Gradient 137.725 mmHg (0-20); Puncture Site Right Radial artery
[2024-03-18] MEDS: Meropenem 2 GM in Sodium Chloride 0.9% 100 ML IVPB SCH ×2 (09:52→16:51)
[2024-03-18] MEDS: Vancomycin (BATCH) 1.5 GM in Premix 1 BAG IVPB SCH (09:58)
[2024-03-18] MEDS: Ibuprofen 100 MG/5 ML UDCUP PO SCH (10:39)
[2024-03-18] MEDS ORDERED: NOREPINEPHRINE 8 MG/250 ML-D5W 250 ML IVPB SCH (12:45)
[2024-03-18] MEDS ORDERED: Propofol BOLUS 1,000 MG/100 ML VIAL IV PRN (13:30)
[2024-03-18] MEDS ORDERED: Propofol 1,000 MG/100 ML VIAL IV PRN (13:30)
[2024-03-18] MEDS ORDERED: Meropenem 2 GM in Sodium Chloride 0.9% 100 ML IVPB SCH (14:00)
[2024-03-18] MEDS: Ventilator Sedation Protocol 1 EACH FS ONE (14:56)
[2024-03-18] MEDS: Morphine 2 MG/ML VIAL SLOW IVP PRN (20:00)
[2024-03-18] MEDS: Acetaminophen 650 MG Suppository PR PRN (20:22)
[2024-03-18] MEDS: Water For Inject, Bacteriostat 30 ML ONE (20:39)
[2024-03-18] MEDS: Vecuronium 10 MG VIAL IVP PRN (20:40)
[2024-03-18] MEDS: Digoxin 0.5 MG/2 ML AMP SLOW IVP SCH (20:56)
[2024-03-18] MEDS: Metoprolol Tartrate 5 MG (5 mL) VIAL IVP SCH (21:13)
[2024-03-18] MEDS: Magnesium 2 GM/50 ML(in water) 2 GM in Premix 1 BAG IVPB SCH (21:14)
[2024-03-18] MEDS: Vancomycin 1 GM in Premix 1 BAG IVPB SCH (21:42)
[2024-03-19 04:50] LABS: Hematocrit 50.7 % (36.0-47.0); Hemoglobin 16.3 g/dL (12.0-16.0); Mean Corpuscular HGB CONC 32.1 g/dL (32.0-36.0); Mean Corpuscular Hemoglobin 32.7 pg (27.0-31.0); Mean Corpuscular Volume 101.6 fL (78.0-98.0); Mean Platelet Volume 11.7 fL (7.4-10.4); Platelet Count 154 10x3/uL (130-400); Red Blood Cell (RBC) Count 4.99 mill/uL (4.20-5.40)
[2024-03-19 05:27] LABS: Band 27 % (5-11); Lymphocytes 11 % (21-51); Monocytes 8 % (0-10); Neutrophil 52 % (42-75); Plasma Cells 0 % (0-0); Platelet Adequacy Comment Appears Adequate; Reactive Lymphocytes 2 % (0-10); Total Cell Count 100
[2024-03-19 08:05] LABS: Anion Gap 17 mmol/L (10-20); BUN (Urea Nitrogen) 20 mg/dL (9.8-20.1); Calc. Creatinine Clearance 85 mL/min (70-130); Calcium 9.2 mg/dL (7.8-10.44); Carbon Dioxide 24 mmol/L (23-31); Chloride 100 mmol/L (98-107); Estimated GFR 89; Glucose 216 mg/dL (80-115); Potassium 3.7 mmol/L (3.5-5.1); Sodium 137 mmol/L (136-145)
[2024-03-19] MEDS: Sodium Chloride 0.9% 500 ML IVPB SCH (09:30)
[2024-03-19] MEDS: Polyethylene Glycol 3350 17 GM Packet PO SCH (10:17)
[2024-03-19] MEDS: fentaNYL 25 mcg Patch TD SCH (10:17)
[2024-03-19] MEDS: OLANZapine 5 MG TAB PO SCH (10:17)
[2024-03-19] MEDS: Digoxin 0.125 MG TAB PO SCH (10:17)
[2024-03-19] MEDS: Metoprolol Tartrate 25 MG TAB PO SCH (10:18)
[2024-03-19] MEDS: Topiramate 100 MG TAB PO SCH (10:32)
[2024-03-19] MEDS: Divalproex Sodium 125 mg Sprinkle Capsule PER TUBE SCH (13:28)
[2024-03-19] MEDS: Senokot S 8.6-50 MG TAB PO SCH (20:04)
[2024-03-20] MEDS: Dextrose 50% Abboject 50 ML SYRINGE SLOW IVP PRN (05:48)
[2024-03-20 06:48] LABS: Hematocrit 38.8 % (36.0-47.0); Hemoglobin 12.8 g/dL (12.0-16.0); Mean Corpuscular Hemoglobin 32.2 pg (27.0-31.0); Mean Corpuscular Volume 97.5 fL (78.0-98.0); Mean Platelet Volume 11.1 fL (7.4-10.4); Platelet Count 216 10x3/uL (130-400); RBC Distribution Width 12.8 % (11.5-14.5); Red Blood Cell (RBC) Count 3.98 mill/uL (4.20-5.40)
[2024-03-20 06:58] LABS: Vancomycin, Random 13.4 ug/mL (See Comment)
[2024-03-20 06:59] LABS: Anion Gap 17 mmol/L (10-20); BUN (Urea Nitrogen) 22 mg/dL (9.8-20.1); Calc. Creatinine Clearance 92 mL/min (70-130); Calcium 8.4 mg/dL (7.8-10.44); Carbon Dioxide 23 mmol/L (23-31); Chloride 100 mmol/L (98-107); Estimated GFR 98; Glucose 131 mg/dL (80-115); Potassium 3.7 mmol/L (3.5-5.1); Sodium 136 mmol/L (136-145)
[2024-03-20 07:25] LABS: Band 20 % (5-11); Large Platelets 1.9 % (0-5); Lymphocytes 14 % (21-51); Monocytes 14 % (0-10); Neutrophil 52 % (42-75); Nucleated RBC (Manual Ct) 1 % (0); Platelet Adequacy Comment Platelets Normal; Polychromasia SLIGHT = 2-3 cells HPF (0-2); Vacuoles MODERATE
[2024-03-20] MEDS: VANCOMYCIN 1.25 GM/250 ML BAG 1.25 GM in Premix 1 BAG IVPB SCH (10:57)
[2024-03-20] MEDS: OLANZapine 5 MG TAB PER TUBE SCH (21:04)
[2024-03-21 04:35] VITALS: BMI 27.8
[2024-03-21] MEDS: Dexmedetomidine 1,000 MCG in NS 250 mL IVPB SCH (04:36)
[2024-03-21 04:41] LABS: Hematocrit 33.8 % (36.0-47.0); Hemoglobin 11.4 g/dL (12.0-16.0); Mean Corpuscular HGB CONC 33.7 g/dL (32.0-36.0); Mean Corpuscular Hemoglobin 32.3 pg (27.0-31.0); Mean Corpuscular Volume 95.8 fL (78.0-98.0); Platelet Count 280 10x3/uL (130-400); RBC Distribution Width 13.1 % (11.5-14.5); Red Blood Cell (RBC) Count 3.53 mill/uL (4.20-5.40)
[2024-03-21 04:53] LABS: Anion Gap 14 mmol/L (10-20); BUN (Urea Nitrogen) 20 mg/dL (9.8-20.1); Calc. Creatinine Clearance 87 mL/min (70-130); Calcium 8.4 mg/dL (7.8-10.44); Carbon Dioxide 26 mmol/L (23-31); Chloride 97 mmol/L (98-107); Estimated GFR 97; Glucose 173 mg/dL (80-115); Potassium 2.9 mmol/L (3.5-5.1); Sodium 134 mmol/L (136-145)
[2024-03-21 05:10] LABS: Band 16 % (5-11); Eosinophils 1 % (0-10); Lymphocytes 15 % (21-51); Monocytes 5 % (0-10); Neutrophil 62 % (42-75); Platelet Adequacy Comment Platelets Normal; Polychromasia MODERATE = 3-4 cells HPF (0-2); Target Cells SLIGHT = 2-5 cells HPF (0-1)
[2024-03-21] MEDS: Potassium Chloride 20 MEQ in Premix 1 BAG IVPB SCH ×2 (06:36→21:23)
[2024-03-21 06:53] LABS: Actual Bicarbonate (HCO3a) 25.9 mEq/L (22-28); Base Excess (BEa) 4.2 mEq/L (-2.0 to +3.0); CO2 Tension 29.7 mmHg (35.0-45.0); Calcium, Ionized (arterial) 1.13 mmol/L (1.12-1.30); Carboxyhemoglobin (COHb) 0.3 gm% (0.0-3.0); Hematocrit-ABG 34 % (36.0-47.0); Hemoglobin (Hb) 11.5 g/dL (12.0-16.0); O2 Tension (PaO2), arterial 73.9 mmHg (> 80.0); Potassium - ABG Lab 2.76 mmol/L (3.70-5.30); pH, Arterial 7.559 (7.35-7.45)
[2024-03-21 06:54] LABS: Puncture Site Left Radial artery
[2024-03-21 06:55] LABS: ALV-art Gradient 138.525 mmHg (0-20)
[2024-03-21] MEDS: Lactulose 20 GM (30 mL) UDCUP PO SCH (11:14)
[2024-03-21] MEDS: Bisacodyl 10 MG SUPP PR SCH (11:15)
[2024-03-21] MEDS ORDERED: Potassium Chloride 20 MEQ in Premix 1 BAG IVPB SCH (14:00)
[2024-03-21] MEDS: Metoclopramide HCl 10 MG (2 mL) VIAL IVP SCH (15:12)
[2024-03-21 20:06] LABS: Potassium 3.2 mmol/L (3.5-5.1)
[2024-03-22 07:42] LABS: #Basophils 0.03 10x3/uL (0.0-0.2); %Basophils 0.3 % (0.0-1.0); %Eosinophils 0.7 % (0.0-10.0); %Lymphocytes 13.9 % (21.0-51.0); %Monocytes 9.3 % (0.0-10.0); %Neutrophils 75.2 % (42.0-75.0); Hematocrit 36.1 % (36.0-47.0); Hemoglobin 12.3 g/dL (12.0-16.0); Mean Corpuscular HGB CONC 34.1 g/dL (32.0-36.0); Mean Corpuscular Hemoglobin 32.9 pg (27.0-31.0); Mean Corpuscular Volume 96.5 fL (78.0-98.0); Mean Platelet Volume 10.5 fL (7.4-10.4); Platelet Count 386 10x3/uL (130-400); RBC Distribution Width 13.2 % (11.5-14.5); Red Blood Cell (RBC) Count 3.74 mill/uL (4.20-5.40)
[2024-03-22 07:54] LABS: Vancomycin, Random 13.4 ug/mL (See Comment)
[2024-03-22 07:56] LABS: Anion Gap 14 mmol/L (10-20); BUN (Urea Nitrogen) 15 mg/dL (9.8-20.1); Calc. Creatinine Clearance 96 mL/min (70-130); Calcium 8.5 mg/dL (7.8-10.44); Carbon Dioxide 26 mmol/L (23-31); Chloride 101 mmol/L (98-107); Estimated GFR 99; Glucose 175 mg/dL (80-115); Potassium 3.1 mmol/L (3.5-5.1); Sodium 138 mmol/L (136-145)
[2024-03-22] MEDS: Topiramate 25 MG TAB PO SCH (11:01)
[2024-03-22 12:02] VITALS: BMI 27.5
[2024-03-22] MEDS: Digoxin 0.5 MG/2 ML AMP SLOW IVP SCH (12:39)
[2024-03-22] MEDS: Potassium Chloride 20 MEQ in Premix 1 BAG IVPB SCH (13:33)
[2024-03-23 08:25] LABS: Hematocrit 36.7 % (36.0-47.0); Hemoglobin 12.1 g/dL (12.0-16.0); Mean Corpuscular Hemoglobin 32.4 pg (27.0-31.0); Mean Corpuscular Volume 98.1 fL (78.0-98.0); Mean Platelet Volume 10.3 fL (7.4-10.4); Platelet Count 378 10x3/uL (130-400); RBC Distribution Width 13.3 % (11.5-14.5); Red Blood Cell (RBC) Count 3.74 mill/uL (4.20-5.40)
[2024-03-23] MEDS: Digoxin 0.5 MG/2 ML AMP SLOW IVP SCH (08:45)
[2024-03-23 08:46] LABS: Anion Gap 17 mmol/L (10-20); BUN (Urea Nitrogen) 16 mg/dL (9.8-20.1); Calc. Creatinine Clearance 89 mL/min (70-130); Calcium 8.4 mg/dL (7.8-10.44); Carbon Dioxide 24 mmol/L (23-31); Chloride 103 mmol/L (98-107); Estimated GFR 98; Glucose 202 mg/dL (80-115); Potassium 3.6 mmol/L (3.5-5.1); Sodium 140 mmol/L (136-145)
[2024-03-23 09:11] LABS: Band 6 % (5-11); Eosinophils 1 % (0-10); Lymphocytes 13 % (21-51); Monocytes 12 % (0-10); Neutrophil 69 % (42-75); Platelet Adequacy Comment Platelets Normal; Polychromasia SLIGHT = 2-3 cells HPF (0-2); Smudge Cells 6.9 %
[2024-03-24 03:45] LABS: Hemoglobin 11.7 g/dL (12.0-16.0); Mean Corpuscular HGB CONC 33.4 g/dL (32.0-36.0); Mean Corpuscular Hemoglobin 31.9 pg (27.0-31.0); Mean Corpuscular Volume 95.4 fL (78.0-98.0); Mean Platelet Volume 10.2 fL (7.4-10.4); Platelet Count 451 10x3/uL (130-400); RBC Distribution Width 13.5 % (11.5-14.5); Red Blood Cell (RBC) Count 3.67 mill/uL (4.20-5.40)
[2024-03-24 03:46] LABS: Anion Gap 14 mmol/L (10-20); BUN (Urea Nitrogen) 17 mg/dL (9.8-20.1); Calc. Creatinine Clearance 84 mL/min (70-130); Calcium 8.1 mg/dL (7.8-10.44); Carbon Dioxide 25 mmol/L (23-31); Chloride 102 mmol/L (98-107); Estimated GFR 97; Glucose 225 mg/dL (80-115); Potassium 3.2 mmol/L (3.5-5.1); Sodium 138 mmol/L (136-145)
[2024-03-24 03:47] LABS: Vancomycin, Random 11.9 ug/mL (See Comment)
[2024-03-24 04:56] LABS: Band 1 % (5-11); Eosinophils 1 % (0-10); Lymphocytes 17 % (21-51); Monocytes 8 % (0-10); Neutrophil 71 % (42-75); Nucleated RBC (Manual Ct) 1 % (0); Platelet Adequacy Comment Platelets Normal; Polychromasia SLIGHT = 2-3 cells HPF (0-2); Reactive Lymphocytes 2 % (0-10)
[2024-03-24] MEDS: Potassium Chloride 20 MEQ TAB PO SCH (09:00)
[2024-03-25 03:14] LABS: Hematocrit 40.5 % (36.0-47.0); Hemoglobin 13.4 g/dL (12.0-16.0); Mean Corpuscular HGB CONC 33.1 g/dL (32.0-36.0); Mean Corpuscular Hemoglobin 32.5 pg (27.0-31.0); Mean Corpuscular Volume 98.3 fL (78.0-98.0); Mean Platelet Volume 10.4 fL (7.4-10.4); Platelet Count 486 10x3/uL (130-400); RBC Distribution Width 13.8 % (11.5-14.5); Red Blood Cell (RBC) Count 4.12 mill/uL (4.20-5.40)
[2024-03-25 03:25] LABS: Anion Gap 16 mmol/L (10-20); BUN (Urea Nitrogen) 23 mg/dL (9.8-20.1); Calc. Creatinine Clearance 51 mL/min (70-130); Carbon Dioxide 21 mmol/L (23-31); Chloride 103 mmol/L (98-107); Estimated GFR 83; Glucose 326 mg/dL (80-115); Potassium 3.4 mmol/L (3.5-5.1); Sodium 137 mmol/L (136-145)
[2024-03-25 04:35] LABS: Lymphocytes 10 % (21-51); Macrocytosis SLIGHT = 6-15 cells HPF (0-5); Monocytes 13 % (0-10); Neutrophil 76 % (42-75); Platelet Adequacy Comment Platelets Normal; Polychromasia SLIGHT = 2-3 cells HPF (0-2); Smudge Cells 5.7 %; Toxic Granulation SLIGHT
[2024-03-25] MEDS: Potassium Chloride 20 MEQ TAB PO SCH (08:22)
[2024-03-25 12:27] VITALS: TEMP 99.6
[2024-03-25 14:25] VITALS: BP 125/94
[2024-03-25] MEDS: Morphine 4 MG/ML VIAL ONE (15:35)
[2024-03-25] MEDS: Lorazepam 2 MG/ML VIAL ONE (15:35)
[2024-03-25] MEDS: Lorazepam 2 MG/ML VIAL SLOW IVP PRN (15:40)
[2024-03-25] MEDS: Morphine 4 MG/ML VIAL SLOW IVP PRN (16:30)
== END 2024-03-26 01:25 | disposition expired | DRG 870 ==
LOC: ERS 12:33 → ERHOLD 17:44 → CCU 22:00
PROVIDERS: ADMIT Family Medicine; ATTEND Family Medicine
PROC: 3E03329 Introduction of Other Anti-infective into Peripheral Vein, Percutaneous Approach (ICD-10-PCS; 2024-03-11)
PROC: 0BH18EZ Insertion of Endotracheal Airway into Trachea, Via Natural or Artificial Opening Endoscopic (ICD-10-PCS; principal; 2024-03-12)
PROC: 5A1955Z Respiratory Ventilation, Greater than 96 Consecutive Hours (ICD-10-PCS; 2024-03-12)
PROC: 3E033XZ Introduction of Vasopressor into Peripheral Vein, Percutaneous Approach (ICD-10-PCS; 2024-03-12)
PROC: 4A133R1 Monitoring of Arterial Saturation, Peripheral, Percutaneous Approach (ICD-10-PCS; 2024-03-12)
DX: A41.51 Sepsis due to Escherichia coli [E. coli] (principal); I21.A1 Myocardial infarction type 2; E11.00 Type 2 diabetes mellitus with hyperosmolarity without nonketotic hyperglycemic-hyperosmolar coma (NKHHC); S06.5XAA Traumatic subdural hemorrhage with loss of consciousness status unknown, initial encounter; R65.21 Severe sepsis with septic shock; J96.00 Acute respiratory failure, unspecified whether with hypoxia or hypercapnia; E87.0 Hyperosmolality and hypernatremia; K56.7 Ileus, unspecified; N17.9 Acute kidney failure, unspecified; E87.20 Acidosis, unspecified; M62.82 Rhabdomyolysis; I47.20 Ventricular tachycardia, unspecified; J81.1 Chronic pulmonary edema; I48.0 Paroxysmal atrial fibrillation; Z66 Do not resuscitate; Z51.5 Encounter for palliative care; F17.210 Nicotine dependence, cigarettes, uncomplicated; E78.5 Hyperlipidemia, unspecified; I25.10 Atherosclerotic heart disease of native coronary artery without angina pectoris; N30.90 Cystitis, unspecified without hematuria; E11.51 Type 2 diabetes mellitus with diabetic peripheral angiopathy without gangrene; W06.XXXA Fall from bed, initial encounter; F31.9 Bipolar disorder, unspecified; Z90.49 Acquired absence of other specified parts of digestive tract; Z90.710 Acquired absence of both cervix and uterus; Z88.5 Allergy status to narcotic agent; Z79.01 Long term (current) use of anticoagulants; Z88.8 Allergy status to other drugs, medicaments and biological substances; Z79.899 Other long term (current) drug therapy; Z79.85 Long-term (current) use of injectable non-insulin antidiabetic drugs; Y93.89 Activity, other specified; Y92.89 Other specified places as the place of occurrence of the external cause; Z79.02 Long term (current) use of antithrombotics/antiplatelets; Z79.1 Long term (current) use of non-steroidal anti-inflammatories (NSAID)
CPT/HCPCS: 36415; 36416; 36600; 70450; 70486; 71045; 72125; 74018; 80048; 80053; 80061; 80162; 80202; 80306; 80307; 81001; 82010; 82550; 82805; 83036; 83605; 83735; 83880; 83930; 84100; 84145; 84443; 84484; 85025; 85610; 85730; 87040; 87077; 87081; 87086; 87186; 93005; 93010; 93306; 94002; 94003; 94640; 94660; 94760; 96361; 96365; 96375; 96376; G0390; J0282; J0692; J1160; J1815; J1940; J2060; J2183; J2250; J2272; J2470; J2765; J3010; J3370; J3475; J3480; J7030; J7050; J7070; J7168; J7620; J7999